=== PATIENT | female | born 1975 | race Caucasian/White ===

== ENCOUNTER 2016-09-16 23:45 | Inpatient (IN) | payer OTHER ==
[~2016-09-16] VITALS: Ht 170.2 cm; Wt 155.0 kg
[~2016-09-16 23:45] MED LIST: ABILIFY10 MG PO; ABILIFY15 MG PO; ABILIFY30 MG PO; ACEROLA C500 M2 PO; ACETAMINOPHEN500 MG PO; ACID CONTROL20 MG PO; ADVAIR 500-501 EACH IH; ADVAIR 500/501 DISK IH; ADVAIR HFA120 INHAL1 IH; ALBUTEROL SULF8.5 GM IH; ALBUTEROL2.5 MG/0.5 IH; ALDACTONE25 MG PO; AMBIEN10 MG PO; AMBIEN5 MG PO; AMITRIPTYLINE H25 MG PO; ANAPROX DS550 M1 PO; ANEXSIA 5-3251 EACH PO; ARIPIPRAZOLE10 MG PO; ATARAX,VISTARIL25 MG PO; ATARAX,VISTARIL50 MG PO; AUGMENTIN875 MG PO; AZITHROMYCIN250 MG1 PO; Advair 500/50 Diskus IH; Advair HFA 230/21 IH; Aldactone PO; Atarax,Vistaril PO; BENADRYL ALLERG25 MG PO; BENADRYL ITCH28.3 GM TP; BUMEX1 MG PO; BUPROPION XL150 MG PO; BUSPAR10 MG PO; BUTALB-ACETAMI1 EAC2 PO; BUTALB-APAP-CA1 EACH; BUTALB-APAP-CA1 EACH PO; Benadryl PO; Buspar PO; CARAFATE100 MG/ML PO; CELEBREX200 MG PO; CELEXA10 MG PO; CELEXA20 MG PO; CHERATUSSIN DA473 ML PO; CIPRO500 M1 PO; CIPRO500 MG PO; CITALOPRAM HBR10 MG PO; CITALOPRAM HBR20 MG PO; CLARITIN10 M3 PO; CLARITIN10 MG; CLEOCIN150 MG PO; CLEOCIN300 MG PO; CLINDAMYCIN HC150 MG PO; CLINDAMYCIN HC300 MG PO; CLONAZEPAM0.5 MG PO; CLONAZEPAM1 MG PO; CLOTRIMAZOLE15 GM TP; COLACE100 MG PO; CONSTULOSE10 GM/15 M PO; CYMBALTA60 MG PO; Claritin,Alavart PO; Colace PO; Cymbalta PO; DAILY VALUE1 EACH PO; DELTASONE20 M1 PO; DEPAKOTE ER500 MG PO; DEPO-PROVER150 MG/ML IM; DESYREL 150 MG150 MG PO; DESYREL100 MG PO; DESYREL300 MG PO; DEXILANT60 MG PO; DICYCLOMINE HCL10 MG PO; DILAUDID2 MG PO; DILAUDID4 MG PO; DILTIAZEM ER120 M2 PO; DITROPAN XL15 MG PO; DITROPAN5 MG PO; DOXYCYCLINE HY100 M3 PO; DOXYCYCLINE HY100 MG PO; DULOXETINE HCL30 MG PO; DULOXETINE HCL60 MG PO; DUONEB 2.5-0.5 M3 ML IH; DURAGESIC50 MCG TD; Desyrel PO; DuoNeb IH; Duragesic TD; ELAVIL25 MG PO; ELIMITE 5% CREA60 GM TP; FENTANYL1 EAC5 TD; FIBER500 MG PO; FIORICET 50-321 EAC1 PO; FIORICET,ESG1 TABLET PO; FIORINAL PO; FIORINAL WITH1 EACH; FLAGYL500 MG PO; FLEXERIL10 MG PO; FLEXERIL5 MG PO; FLONASE16 G1 BOTH NARES; FLONASE16 G1 NS; FLONASE16 GM NS; FLORASTOR250 MG PO; FOLIC ACID1 MG PO; FUROSEMIDE40 MG PO; Flonase BOTH NARES; Folvite PO; GABAPENTIN800 MG PO; GLUCOPHAGE1000 MG PO; GLUCOPHAGE500 MG PO; Glucophage PO; HYDROCODON-ACE1 EA11 PO; HYDROMORPHONE E16 MG PO; HYDROXYZINE HCL25 MG PO; HYDROXYZINE HCL50 MG PO; HYDROXYZINE PA100 MG PO; IBUPROFEN800 MG PO; IMITREX; IMITREX25 MG PO; IMITREX6 MG/0.52 SC; IMITREX6 MG/0.53 SC; IMODIUM A-D2 MG PO; INDOCIN25 MG PO; IRON325 M1 PO; JANUVIA100 MG PO; K-DUR10 ME1 PO; K-DUR20 MEQ PO; K-Dur PO; KEFLEX500 MG PO; KETOCONAZOLE60 GM TP; KLONOPIN0.5 M1 PO; KLONOPIN1 MG PO; KLONOPIN2 MG PO; KLOR-CON M1010 MEQ PO; KLOR-CON M2020 MEQ PO; Keflex; Keflex PO; LANSOPRAZOLE30 MG PO; LASIX20 MG PO; LASIX40 MG PO; LASIX80 MG PO; LEVAQUIN500 MG PO; LIDODERM 5% P1 PATCH PO; LIDODERM 5% P1 PATCH TD; LINEZOLID600 MG PO; LIPITOR10 MG; LIPITOR20 MG PO; LITHIUM CARBON300 MG PO; LOTRIMIN AF24 GM TP; LYRICA200 MG PO; Lasix PO; Lipitor PO; MAALOX ADVANCE355 ML PO; MACROBID100 MG PO; MEDROL DOSEPAK4 MG PO; MELOXICAM15 MG PO; METFORMIN HCL1000 M1 PO; METFORMIN HCL1000 M3 PO; METFORMIN HCL1000 MG PO; METFORMIN HCL500 MG PO; METOCLOPRAMIDE10 MG PO; METOLAZONE2.5 MG PO; MIRALAX17 GM PO; MOBIC15 MG PO; MOBIC7.5 MG PO; MONTELUKAST SOD10 MG PO; MONUROL SACHET 33 GM PO; MOTRIN800 MG PO; MULTIVITAMIN1 EAC2 PO; Medrol Dosepak PO; Motrin PO; NAPROSYN500 MG PO; NAPROXEN500 MG PO; NASONEX17 GM BOTH NARES; NASONEX17 GM IH; NEURONTIN300 MG PO; NEURONTIN800 MG PO; NORCO 5/3251 TABLET PO; Neurontin PO; ONDANSETRON HCL8 MG PO; ONDANSETRON ODT4 MG PO; ONDANSETRON ODT8 MG PO; OXAYDO5 MG PO; OXCARBAZEPINE150 MG PO; OXCARBAZEPINE600 MG PO; OXYBUTYNIN CHLO10 MG PO; OXYBUTYNIN CHLO15 MG PO; OXYBUTYNIN CHLOR5 MG PO; OXYCODONE-APAP1 EACH PO; PEN-VEE K,VEET500 MG PO; PERCOCET 10/1 TABLET PO; PERCOCET 5/31 TABLET; PERCOCET 5/31 TABLET PO; PERCOCET 7.51 TABLET PO; PHENERGAN12.5 M1 PO; PHENERGAN25 MG PO; PHENERGAN25 MG PR; PREDNISONE10 M1 PO; PREDNISONE10 MG PO; PREDNISONE20 MG PO; PREDNISONE50 MG PO; PREVACID30 MG PO; PROAIR HFA8.5 GM IH; PROMETHAZINE HC25 M1 PO; PROMETHAZINE HC25 MG PR; PROVENTIL,2.5 MG/0.5 IH; PROVENTIL,2.5 MG/3 M IH; PROVENTIL,200 INHALA IH; PROVENTIL17 GM IH; PROZAC10 MG PO; PROZAC40 MG PO; PROzac PO; Percocet 5/325,Endoc PO; Phenergan PO; Potassium Chloride 1 PO; RANITIDINE HCL300 MG PO; REGLAN10 M1 PO; REGLAN10 MG PO; REQUIP1 MG PO; RISPERDAL1 MG PO; ROBITUSSIN100 MG/5 M PO; ROPINIROLE HCL1 MG PO; ROPINIROLE HCL2 MG PO; Reglan PO; SENNA LAXATIVE8.6 MG PO; SENNA8.6 M1 PO; SENNA8.6 MG PO; SENOKOT,SENN1 TABLET PO; SINGULAIR10 MG PO; SPIRIVA1 INHALATI IH; SPIRONOLACTONE25 MG PO; SPIRONOLACTONE50 MG PO; SPRINTEC1 EACH PO; STADOL NASAL2.5 ML; STADOL NASAL2.5 ML NS; STOOL SOFTENER100 M1 PO; STOOL SOFTENER100 MG PO; SUMATRIPTA6 MG/0.5 M SC; Singulair PO; THEO-24200 MG; THEO-24200 MG PO; THEO-DUR,THEOC100 MG PO; THEO-DUR,THEOC200 MG PO; THEOPHYLLINE A200 M1 PO; THEOPHYLLINE400 MG PO; THERAGRAN1 TABLET; TIZANIDINE HCL2 MG PO; TIZANIDINE HCL4 MG PO; TOPAMAX100 MG; TOPAMAX100 MG PO; TOPAMAX200 MG PO; TOPAMAX25 MG PO; TOPAMAX50 MG PO; TOPIRAGEN200 MG PO; TOPIRAMATE100 MG PO; TOPIRAMATE200 MG PO; TOPIRAMATE25 MG PO; TRAMADOL HCL50 MG PO; TRAZODONE HCL100 MG PO; TRAZODONE HCL150 MG PO; TRAZODONE HCL300 MG PO; TREXIMET 85-1 TABLET PO; TRILEPTAL150 MG PO; TRILEPTAL300 MG PO; TRILEPTAL600 MG PO; TUMS500 MG PO; TYLENOL EXTRA500 MG PO; TYLENOL REGULA325 MG PO; TYLENOL WITH C1 EACH PO; Theo-Dur,Theocron PO; Topamax PO; ULTRACET1 TABLET PO; ULTRAM ER 100100 MG PO; ULTRAM50 MG PO; VALIUM5 MG PO; VIBRAMYCIN100 MG PO; VICODIN 5-3001 EACH PO; VICODIN,LORT1 TABLET PO; VISTARIL50 MG PO; VITAMIN D1000 INTUN PO; VITAMIN D1000 UNIT PO; VITAMIN D31000 UNI2 PO; VITAMIN D31000 UNIT PO; VOLTAREN 1% GE100 GM TP; WELLBUTRIN XL300 MG PO; ZANAFLEX2 MG PO; ZANAFLEX4 M1 PO; ZANAFLEX4 MG PO; ZANTAC300 MG PO; ZAROXOLYN2.5 MG PO; ZITHROMAX Z-PA250 MG PO; ZOFRAN ODT4 MG PO; ZOFRAN ODT8 MG PO; ZOFRAN4 MG PO; ZOFRAN8 MG PO; ZOLPIDEM TARTRA10 MG PO; ZOLPIDEM TARTRAT5 MG PO; ZYPREXA5 MG PO; ZYRTEC10 M2 PO; ZYRTEC10 M3 PO; ZYVOX600 MG PO; Zaroxolyn,Diulo PO; [UNRECOGNIZED DRUG - OTHER]; [UNRECOGNIZED DRUG - OTHER] MC; [UNRECOGNIZED DRUG - REMARK]; risperDAL PO
[2016-09-17 04:40] LABS: CHLORIDE 107 mEq/L (99-109); POTASSIUM 3.8 mEq/L (3.7-5.4); SODIUM 140 mEq/L (136-147)
[2016-09-17 04:42] LABS: GLUCOSE 110 mg/dL (70-99)
[2016-09-17 04:44] LABS: ANION GAP 11 MEQ/L (2-14)
[2016-09-17 04:46] LABS: GFR ESTIMATE (CALCULATED) > 59 mL/min/
[2016-09-17 04:47] LABS: UREA NITROGEN (BUN) 9 mg/dL (9-23)
[2016-09-17 05:01] LABS: ADD MIUA? YES; BILIRUBIN NEGATIVE; BLOOD NEGATIVE; COLOR YELLOW ((YELLOW)); GLUCOSE (STRIP) NEGATIVE; KETONES NEGATIVE; LEUKOCYTES LARGE; NITRITE NEGATIVE; PH, URINE 7.5 (5-8); PROTEIN (STRIP) TRACE; SPECIFIC GRAVITY 1.018 (1.000-1.030); UROBILINOGEN 0.2 MG/DL (0.2-1.0)
[2016-09-17 05:02] LABS: HEMATOCRIT 35.1 % (36.0-46.0); MCH 20.7 PG (29.0-34.0); MCHC 30.8 G/DL (30.0-36.0); MCV 67.2 FL (83-99); MEAN PLAT.VOLUME 9.1 uM^3 (9.5-12.4); PLATELET COUNT 441 K/uL (156-360); RBC DIS.WIDTH-CV 20.5 % (11.8-14.6); RBC DIS.WIDTH-SD 49.3 % (39-53); RED BLOOD COUNT 5.22 M/uL (3.80-5.20); WHITE BLOOD COUNT 11.6 K/uL (4.1-10.2)
[2016-09-17 05:10] LABS: EOSINOPHIL (%) 4.6 % (0-5); EOSINOPHIL COUNT 0.5 K/uL (0-0.3); IMMATURE GRANULOCYTE (%) 0.3 % (0.0-0.7); IMMATURE GRANULOCYTE COUNT 0.3 K/uL; LYMPHOCYTE COUNT 3.7 K/uL (1.0-2.8); MONOCYTE (%) 6.1 % (3-12); MONOCYTE COUNT 0.7 K/uL (0-0.8); NEUTROPHIL (%) 57.3 % (45-76); NEUTROPHIL COUNT 6.7 K/uL (1.8-6.4)
[2016-09-17 05:37] LABS: RED BLOOD CELLS NONE SEEN /HPF (0-5)
[2016-09-17 05:40] LABS: EPITHELIAL CELLS 1+
[2016-09-17 05:41] LABS: BACTERIA NONE SEEN; CASTS NONE SEEN /LPF; CRYSTALS NONE SEEN; MUCUS 1+; UCUL ADDED? NO
[2016-09-17] MEDS ORDERED: ELAVIL25 MG PO (09:25)
[2016-09-17] MEDS ORDERED: NEURONTIN400 MG PO (09:30)
[2016-09-17] MEDS ORDERED: LIDOCAINE HCL35 GM TP (09:31)
[2016-09-17] MEDS ORDERED: SANTYL30 GM TP (09:31)
[2016-09-17] MEDS ORDERED: ULTRAM50 MG PO (09:41)
[2016-09-17] MEDS ORDERED: ZOCOR40 MG PO (09:42)
[2016-09-17] MEDS ORDERED: KLONOPIN1 MG PO (09:43)
[2016-09-17 13:28] LABS: Estimated Average Glucose 171 mg/dL (70-123); HEMOGLOBIN A1c (GLYCOHEMOGLOB) 7.6 % HGB (Below 5.7)
[2016-09-17 16:18] VITALS: BP 143/83
[2016-09-17 19:46] VITALS: BP 178/87
[2016-09-17 23:28] VITALS: BP 132/73
[2016-09-18 03:17] VITALS: BP 150/73
[2016-09-18 07:44] LABS: HEMATOCRIT 32.5 % (36.0-46.0); MCH 20.9 PG (29.0-34.0); MCHC 30.5 G/DL (30.0-36.0); MCV 68.6 FL (83-99); MEAN PLAT.VOLUME 9.4 uM^3 (9.5-12.4); PLATELET COUNT 356 K/uL (156-360); RBC DIS.WIDTH-CV 19.8 % (11.8-14.6); RBC DIS.WIDTH-SD 48.7 % (39-53); RED BLOOD COUNT 4.74 M/uL (3.80-5.20)
[2016-09-18 07:58] LABS: ANION GAP 12 MEQ/L (2-14); CHLORIDE 107 MEQ/L (99-109); GFR ESTIMATE (CALCULATED) > 59 mL/min/; GLUCOSE 115 mg/dL (70-99); SAMPLE HEMOLYSIS CHECK 0; SAMPLE ICTERIC CHECK 0; SAMPLE LIPEMIA CHECK 0; SODIUM 141 MEQ/L (136-147); UREA NITROGEN (BUN) 9 mg/dL (9-23)
[2016-09-18 08:00] VITALS: BP 152/103
[2016-09-18 12:29] VITALS: BP 141/85
[2016-09-18 16:30] VITALS: BP 148/98
[2016-09-18 19:22] VITALS: BP 116/53
[2016-09-18 23:12] VITALS: BP 118/56
[2016-09-19 03:29] VITALS: BP 130/70
[2016-09-19 06:23] LABS: HEMATOCRIT 31.9 % (36.0-46.0); MCH 20.9 PG (29.0-34.0); MCHC 30.1 G/DL (30.0-36.0); MCV 69.3 FL (83-99); MEAN PLAT.VOLUME 9.1 uM^3 (9.5-12.4); PLATELET COUNT 391 K/uL (156-360); RBC DIS.WIDTH-CV 20.2 % (11.8-14.6); RBC DIS.WIDTH-SD 49.9 % (39-53); WHITE BLOOD COUNT 9.5 K/uL (4.1-10.2)
[2016-09-19 06:39] LABS: EOSINOPHIL (%) 3.6 % (0-5); EOSINOPHIL COUNT 0.3 K/uL (0-0.3); IMMATURE GRANULOCYTE (%) 0.2 % (0.0-0.7); LYMPHOCYTE COUNT 3.2 K/uL (1.0-2.8); MONOCYTE COUNT 0.4 K/uL (0-0.8); NEUTROPHIL (%) 58.6 % (45-76); NEUTROPHIL COUNT 5.6 K/uL (1.8-6.4)
[2016-09-19 06:49] LABS: ALKALINE PHOSPHATASE 78 IU/L (3-129); ANION GAP 14 MEQ/L (2-14); CHLORIDE 106 MEQ/L (99-109); GFR ESTIMATE (CALCULATED) > 59 mL/min/; GLUCOSE 130 mg/dL (70-99); POTASSIUM 3.9 MEQ/L (3.7-5.4); SAMPLE HEMOLYSIS CHECK 0; SAMPLE ICTERIC CHECK 0; SAMPLE LIPEMIA CHECK 0; SODIUM 143 MEQ/L (136-147); TOTAL BILIRUBIN 0.2 MG/DL (0.0-1.0); UREA NITROGEN (BUN) 8 mg/dL (9-23)
[2016-09-19 07:22] LABS: HEMATOLOGY COMMENT 1 SMEAR COMPATIBLE; USER ID MCB
[2016-09-19 07:48] VITALS: BP 158/91
[2016-09-19 16:13] VITALS: BP 156/82
[2016-09-19 23:25] VITALS: BP 120/58
[2016-09-20 07:32] VITALS: BP 151/81
[2016-09-20 07:45] LABS: POINT-OF-CARE USER ID 606021404
[2016-09-20 09:06] LABS: HEMATOCRIT 30.1 % (36.0-46.0); MCH 20.9 PG (29.0-34.0); MCHC 30.2 G/DL (30.0-36.0); MEAN PLAT.VOLUME 8.8 uM^3 (9.5-12.4); PLATELET COUNT 382 K/uL (156-360); RBC DIS.WIDTH-CV 20.2 % (11.8-14.6); RBC DIS.WIDTH-SD 50.1 % (39-53); RED BLOOD COUNT 4.36 M/uL (3.80-5.20); WHITE BLOOD COUNT 8.7 K/uL (4.1-10.2)
[2016-09-20 09:32] LABS: EOSINOPHIL (%) 4.2 % (0-5); EOSINOPHIL COUNT 0.4 K/uL (0-0.3); IMMATURE GRANULOCYTE (%) 0.3 % (0.0-0.7); LYMPHOCYTE COUNT 3.1 K/uL (1.0-2.8); MONOCYTE COUNT 0.4 K/uL (0-0.8); NEUTROPHIL (%) 54.8 % (45-76); NEUTROPHIL COUNT 4.8 K/uL (1.8-6.4)
[2016-09-20 09:44] LABS: ANION GAP 10 MEQ/L (2-14); CHLORIDE 108 MEQ/L (99-109); GFR ESTIMATE (CALCULATED) > 59 mL/min/; GLUCOSE 122 mg/dL (70-99); POTASSIUM 4.2 MEQ/L (3.7-5.4); SAMPLE HEMOLYSIS CHECK 0; SAMPLE ICTERIC CHECK 0; SAMPLE LIPEMIA CHECK 0; SODIUM 139 MEQ/L (136-147); UREA NITROGEN (BUN) 8 mg/dL (9-23)
[2016-09-20 10:11] LABS: HEMATOLOGY COMMENT 1 SMEAR COMPATIBLE; USER ID CCL
[2016-09-20 11:30] LABS: POINT-OF-CARE USER ID 606021404
[2016-09-20 15:30] VITALS: BP 113/59
[2016-09-20 17:00] LABS: POINT-OF-CARE USER ID 606021404
[2016-09-20 23:31] VITALS: BP 133/73
[2016-09-21 07:36] VITALS: BP 170/75
[2016-09-21 14:04] LABS: GFR ESTIMATE (CALCULATED) > 59 mL/min/
[2016-09-21 14:05] LABS: VANCOMYCIN, TROUGH 12.8 MCG/ML (10-20)
[2016-09-22] VITALS: BP 136/76
[2016-09-22 08:05] VITALS: BP 126/79
[2016-09-22 17:00] VITALS: BP 143/86
[2016-09-23 00:09] VITALS: BP 135/73
[2016-09-23 07:57] VITALS: BP 170/98
[2016-10-07] MEDS ORDERED: BENADRYL50 MG PO (17:27)
== END 2016-09-23 13:54 | disposition home health service (06) | DRG 603 ==
LOC: EME 23:45 → EDOF 09-17 07:43 → 2EAST 09-17 10:03
PROVIDERS: Emergency Medicine; Internal Medicine; Nurse Practitioner Adult Health; Pediatrics; Physician Assistant
DX: L03.115 Cellulitis of right lower limb (principal); L03.116 Cellulitis of left lower limb; I87.2 Venous insufficiency (chronic) (peripheral); L97.219 Non-pressure chronic ulcer of right calf with unspecified severity; L97.929 Non-pressure chronic ulcer of unspecified part of left lower leg with unspecified severity; B95.62 Methicillin resistant Staphylococcus aureus infection as the cause of diseases classified elsewhere; B96.5 Pseudomonas (aeruginosa) (mallei) (pseudomallei) as the cause of diseases classified elsewhere; E66.01 Morbid (severe) obesity due to excess calories; Z68.43 Body mass index [BMI] 50.0-59.9, adult; I89.0 Lymphedema, not elsewhere classified; G47.33 Obstructive sleep apnea (adult) (pediatric); Z91.19 Patient's noncompliance with other medical treatment and regimen; D50.9 Iron deficiency anemia, unspecified; Z86.14 Personal history of Methicillin resistant Staphylococcus aureus infection; J45.909 Unspecified asthma, uncomplicated; E11.43 Type 2 diabetes mellitus with diabetic autonomic (poly)neuropathy; K31.84 Gastroparesis; G89.29 Other chronic pain; M54.40 Lumbago with sciatica, unspecified side; E78.5 Hyperlipidemia, unspecified; G40.909 Epilepsy, unspecified, not intractable, without status epilepticus; K21.9 Gastro-esophageal reflux disease without esophagitis; F41.8 Other specified anxiety disorders; F31.9 Bipolar disorder, unspecified; G43.909 Migraine, unspecified, not intractable, without status migrainosus
CPT/HCPCS: 71010; 80048; 80053; 80202; 81003; 82565; 82948; 83036; 83605; 85025; 85027; 87040; 87070; 87075; 87077; 87081; 87186; 87205; 93970; 94640; 94640 76; 99202; 99281; 99285; J0696; J1170; J1650; J1815; J2543; J3370; J7030; J7050; Q0169; S0030

== ENCOUNTER 2016-09-30 10:42 | Emergency (ER) | payer OTHER ==
[~2016-09-30] VITALS: Ht 170.2 cm; Wt 160.9 kg
[~2016-09-30 10:42] MED LIST changes: +LIDOCAINE HCL35 GM TP; +NEURONTIN400 MG PO; +SANTYL30 GM TP; +ZOCOR40 MG PO
[2016-09-30 13:13] LABS: HEMATOCRIT 30.9 % (36.0-46.0); MCHC 29.8 G/DL (30.0-36.0); MCV 67.3 FL (83-99); RBC DIS.WIDTH-CV 21.3 % (11.8-14.6); RBC DIS.WIDTH-SD 50.3 % (39-53); RED BLOOD COUNT 4.59 M/uL (3.80-5.20); WHITE BLOOD COUNT 10.7 K/uL (4.1-10.2)
[2016-09-30 13:19] LABS: MEAN PLAT.VOLUME 8.7 uM^3 (9.5-12.4)
[2016-09-30 13:19] LABS: ADD MIUA? YES; BILIRUBIN NEGATIVE; BLOOD NEGATIVE; GLUCOSE (STRIP) NEGATIVE; KETONES NEGATIVE; LEUKOCYTES MODERATE; NITRITE NEGATIVE; PROTEIN (STRIP) NEGATIVE; SPECIFIC GRAVITY 1.007 (1.000-1.030); UROBILINOGEN 0.2 MG/DL (0.2-1.0)
[2016-09-30 13:20] LABS: COLOR PALE STRAW ((YELLOW))
[2016-09-30 13:20] LABS: PLATELET COUNT 509 K/uL (156-360)
[2016-09-30 13:28] LABS: CHLORIDE 110 mEq/L (99-109); POTASSIUM 3.6 mEq/L (3.7-5.4); SODIUM 139 mEq/L (136-147)
[2016-09-30 13:30] LABS: GLUCOSE 137 mg/dL (70-99)
[2016-09-30 13:31] LABS: ANION GAP 10 MEQ/L (2-14)
[2016-09-30 13:34] LABS: GFR ESTIMATE (CALCULATED) > 59 mL/min/
[2016-09-30 13:35] LABS: UREA NITROGEN (BUN) 7 mg/dL (9-23)
[2016-09-30 13:39] LABS: BACTERIA NONE SEEN; CASTS NONE SEEN /LPF; CRYSTALS NONE SEEN; EPITHELIAL CELLS 1+; MUCUS NONE SEEN; PATHOLOGICAL CAST NONE SEEN; RED BLOOD CELLS 0-5 /HPF (0-5); SMALL ROUND CELL NONE SEEN; UCUL ADDED? NO; YEAST-LIKE CELL NONE SEEN
[2016-09-30 13:45] LABS: C-REACTIVE PROTEIN 33.9 MG/L (0-10); SAMPLE HEMOLYSIS CHECK 0; SAMPLE ICTERIC CHECK 0; SAMPLE LIPEMIA CHECK 0
[2016-09-30 13:54] LABS: ERTH.SED.RATE 107 MM/HR (0-20)
[2016-09-30] MEDS ORDERED: MONISTAT 745 GM VG (15:17)
[2016-09-30 15:25] VITALS: BP 149/69
[2016-10-07] MEDS ORDERED: BENADRYL50 MG PO (17:27)
== END 2016-09-30 15:29 | disposition home or self-care (01) ==
LOC: EME 10:42
PROVIDERS: Nurse Practitioner Family
DX: B37.3 Candidiasis of vulva and vagina (principal); J45.909 Unspecified asthma, uncomplicated; J44.9 Chronic obstructive pulmonary disease, unspecified; R56.9 Unspecified convulsions; G89.29 Other chronic pain; G47.30 Sleep apnea, unspecified; Z86.14 Personal history of Methicillin resistant Staphylococcus aureus infection
CPT/HCPCS: 80048; 80202; 81003; 85027; 85651; 86140; 99281; 99284

== ENCOUNTER 2016-10-26 23:50 | Emergency (ER) | payer OTHER ==
[~2016-10-26] VITALS: Ht 167.6 cm; Wt 155.0 kg
[~2016-10-26 23:50] MED LIST changes: +BENADRYL50 MG PO; +MONISTAT 745 GM VG
[2016-10-27 01:25] VITALS: BP 112/56
== END 2016-10-27 01:35 | disposition home or self-care (01) ==
LOC: EME 23:50
DX: L03.115 Cellulitis of right lower limb (principal); L03.116 Cellulitis of left lower limb; J44.9 Chronic obstructive pulmonary disease, unspecified; R56.9 Unspecified convulsions; Z79.84 Long term (current) use of oral hypoglycemic drugs; K21.9 Gastro-esophageal reflux disease without esophagitis
CPT/HCPCS: 99281; 99283; J3010

== ENCOUNTER 2016-10-30 21:11 | Inpatient (IN) | payer OTHER ==
[~2016-10-30] VITALS: Ht 167.6 cm; Wt 160.0 kg
[2016-10-30 21:35] LABS: HEMATOCRIT 31.8 % (36.0-46.0); MCH 19.9 PG (29.0-34.0); MCHC 29.9 G/DL (30.0-36.0); MCV 66.5 FL (83-99); MEAN PLAT.VOLUME 8.7 uM^3 (9.5-12.4); RBC DIS.WIDTH-CV 20.5 % (11.8-14.6); RBC DIS.WIDTH-SD 49.5 % (39-53); RED BLOOD COUNT 4.78 M/uL (3.80-5.20); WHITE BLOOD COUNT 12.1 K/uL (4.1-10.2)
[2016-10-30 21:42] LABS: EOSINOPHIL (%) 2.5 % (0-5); EOSINOPHIL COUNT 0.3 K/uL (0-0.3); IMMATURE GRANULOCYTE (%) 0.1 % (0.0-0.7); IMMATURE GRANULOCYTE COUNT 0.1 K/uL; MONOCYTE COUNT 0.9 K/uL (0-0.8); NEUTROPHIL (%) 57.3 % (45-76); NEUTROPHIL COUNT 6.9 K/uL (1.8-6.4)
[2016-10-30 21:43] LABS: PLATELET COUNT 494 K/uL (156-360)
[2016-10-30 21:45] LABS: CHLORIDE 110 mEq/L (99-109); POTASSIUM 3.8 mEq/L (3.7-5.4); SODIUM 142 mEq/L (136-147)
[2016-10-30 21:47] LABS: GLUCOSE 171 mg/dL (70-99)
[2016-10-30 21:48] LABS: ANION GAP 11 MEQ/L (2-14)
[2016-10-30 21:51] LABS: GFR ESTIMATE (CALCULATED) > 59 mL/min/
[2016-10-30 21:52] LABS: UREA NITROGEN (BUN) 8 mg/dL (9-23)
[2016-10-31 01:03] LABS: INTER. NORMALIZED RATIO 1.1; PROTHROMBIN TIME 11.2 (9.2-11.2); PTT 30.8 (25-32)
[2016-10-31] MEDS ORDERED: KLONOPIN0.5 M1 PO (01:12)
[2016-10-31] MEDS ORDERED: COMPOUNDED CREAM TP (01:24)
[2016-10-31 05:34] LABS: ADD MIUA? YES; BILIRUBIN NEGATIVE; BLOOD NEGATIVE; COLOR YELLOW ((YELLOW)); GLUCOSE (STRIP) NEGATIVE; KETONES NEGATIVE; LEUKOCYTES MODERATE; NITRITE NEGATIVE; PROTEIN (STRIP) 30; UROBILINOGEN 0.2 MG/DL (0.2-1.0)
[2016-10-31 05:35] LABS: BACTERIA NONE SEEN /HPF; EPITHELIAL CELLS 3+ /HPF; MUCUS TRACE /LPF; UCUL ADDED? NO; WHITE BLOOD CELLS 20-30 /HPF (0-5)
[2016-10-31 07:12] LABS: MCHC 30.3 G/DL (30.0-36.0); MEAN PLAT.VOLUME 8.6 uM^3 (9.5-12.4); PLATELET COUNT 453 K/uL (156-360); RBC DIS.WIDTH-CV 20.5 % (11.8-14.6); WHITE BLOOD COUNT 11.3 K/uL (4.1-10.2)
[2016-10-31 07:45] LABS: POINT-OF-CARE METER ID UU13113702
[2016-10-31] MEDS ORDERED: CLEOCIN300 MG PO (07:56)
[2016-10-31 10:01] VITALS: BP 147/84
== END 2016-10-31 10:03 | disposition home or self-care (01) | DRG 556 ==
LOC: EME 21:11 → EDOF 10-31 01:21
PROVIDERS: Emergency Medicine; Internal Medicine
DX: M79.605 Pain in left leg (principal); E86.0 Dehydration; E11.9 Type 2 diabetes mellitus without complications; F32.9 Major depressive disorder, single episode, unspecified; G47.33 Obstructive sleep apnea (adult) (pediatric); Z91.19 Patient's noncompliance with other medical treatment and regimen; M79.604 Pain in right leg; J45.909 Unspecified asthma, uncomplicated; G43.909 Migraine, unspecified, not intractable, without status migrainosus; E11.43 Type 2 diabetes mellitus with diabetic autonomic (poly)neuropathy; K21.9 Gastro-esophageal reflux disease without esophagitis; F41.9 Anxiety disorder, unspecified; R10.9 Unspecified abdominal pain; L03.115 Cellulitis of right lower limb; L03.116 Cellulitis of left lower limb
CPT/HCPCS: 80048; 81003; 82948; 83605; 85025; 85027; 85610; 85730; 87040; 94640; 94760; 99202; 99281; 99285; J1170; J1815; J2405; J7030; Q0177

== ENCOUNTER 2016-11-01 23:41 | Emergency (ER) | payer OTHER ==
[~2016-11-01] VITALS: Ht 167.6 cm; Wt 154.5 kg
[~2016-11-01 23:41] MED LIST changes: +COMPOUNDED CREAM TP
[2016-11-02 00:59] LABS: HEMATOCRIT 32.1 % (36.0-46.0); MCH 19.7 PG (29.0-34.0); MCHC 29.6 G/DL (30.0-36.0); MCV 66.5 FL (83-99); MEAN PLAT.VOLUME 8.8 uM^3 (9.5-12.4); PLATELET COUNT 508 K/uL (156-360); RBC DIS.WIDTH-CV 20.6 % (11.8-14.6); RBC DIS.WIDTH-SD 49.1 % (39-53); RED BLOOD COUNT 4.83 M/uL (3.80-5.20); WHITE BLOOD COUNT 12.8 K/uL (4.1-10.2)
[2016-11-02 01:13] LABS: CHLORIDE 110 mEq/L (99-109)
[2016-11-02 01:14] LABS: POTASSIUM 3.4 mEq/L (3.7-5.4); SODIUM 140 mEq/L (136-147)
[2016-11-02 01:16] LABS: GLUCOSE 162 mg/dL (70-99)
[2016-11-02 01:17] LABS: ANION GAP 10 MEQ/L (2-14)
[2016-11-02 01:18] LABS: TOTAL BILIRUBIN 0.2 mg/dL (0.0-1.0)
[2016-11-02 01:19] LABS: ALKALINE PHOSPHATASE 74 IU/L (3-129); GFR ESTIMATE (CALCULATED) 53 mL/min/
[2016-11-02 01:21] LABS: UREA NITROGEN (BUN) 7 mg/dL (9-23)
[2016-11-02 01:23] LABS: LIPASE 57 U/L (1.0-51.0)
[2016-11-02 01:41] LABS: ADD MIUA? YES; BILIRUBIN NEGATIVE; BLOOD NEGATIVE; COLOR YELLOW ((YELLOW)); GLUCOSE (STRIP) NEGATIVE; KETONES NEGATIVE; LEUKOCYTES SMALL; NITRITE NEGATIVE; PROTEIN (STRIP) NEGATIVE; SPECIFIC GRAVITY 1.015 (1.000-1.030); UROBILINOGEN 0.2 MG/DL (0.2-1.0)
[2016-11-02 01:52] LABS: BACTERIA NONE SEEN /HPF; BUDDING YEAST 1+; EPITHELIAL CELLS 1+ /HPF; MUCUS NONE SEEN /LPF; RED BLOOD CELLS 0-5 /HPF (0-5); UCUL ADDED? NO; WHITE BLOOD CELLS 15-20 /HPF (0-5)
[2016-11-02 02:52] VITALS: BP 125/79
== END 2016-11-02 02:53 | disposition home or self-care (01) ==
LOC: EME 23:41
PROVIDERS: Emergency Medicine
DX: L03.115 Cellulitis of right lower limb (principal); L03.116 Cellulitis of left lower limb; G89.29 Other chronic pain; M79.604 Pain in right leg; M79.605 Pain in left leg; M62.830 Muscle spasm of back; M25.551 Pain in right hip; R00.0 Tachycardia, unspecified; J44.9 Chronic obstructive pulmonary disease, unspecified; J45.909 Unspecified asthma, uncomplicated; Z86.14 Personal history of Methicillin resistant Staphylococcus aureus infection; E11.9 Type 2 diabetes mellitus without complications; Z79.891 Long term (current) use of opiate analgesic
CPT/HCPCS: 71010; 80053; 81003; 83690; 85027; 99281; 99284

== ENCOUNTER 2016-11-06 03:26 | Inpatient (IN) | payer OTHER ==
[~2016-11-06] VITALS: Ht 170.2 cm; Wt 152.1 kg
[2016-11-06 04:27] LABS: HEMATOCRIT 27.3 % (36.0-46.0); MCH 19.7 PG (29.0-34.0); MCHC 29.7 G/DL (30.0-36.0); MCV 66.3 FL (83-99); MEAN PLAT.VOLUME 8.8 uM^3 (9.5-12.4); PLATELET COUNT 461 K/uL (156-360); RBC DIS.WIDTH-CV 19.9 % (11.8-14.6); RBC DIS.WIDTH-SD 47.3 % (39-53); RED BLOOD COUNT 4.12 M/uL (3.80-5.20); WHITE BLOOD COUNT 11.9 K/uL (4.1-10.2)
[2016-11-06 04:35] LABS: CHLORIDE 115 mEq/L (99-109); SODIUM 140 mEq/L (136-147)
[2016-11-06 04:37] LABS: GLUCOSE 208 mg/dL (70-99)
[2016-11-06 04:39] LABS: ANION GAP 10 MEQ/L (2-14)
[2016-11-06 04:41] LABS: ALKALINE PHOSPHATASE 65 IU/L (3-129); GFR ESTIMATE (CALCULATED) > 59 mL/min/
[2016-11-06 04:42] LABS: UREA NITROGEN (BUN) 7 mg/dL (9-23)
[2016-11-06 04:44] LABS: LIPASE 60 U/L (1.0-51.0)
[2016-11-06 04:48] LABS: INTER. NORMALIZED RATIO 3.9; PROTHROMBIN TIME 41.2 (9.2-11.2); TROP-I INTERPRETATION NEGATIVE; TROPONIN-I < 0.01 ng/mL (0.0-0.30)
[2016-11-06 04:50] LABS: QUANTITATIVE HCG < 4.0 MIU/ML
[2016-11-06 04:55] LABS: POTASSIUM 2.7 mEq/L (3.7-5.4); TOTAL BILIRUBIN 0.1 mg/dL (0.0-1.0)
[2016-11-06 05:45] LABS: CHLORIDE 111 mEq/L (99-109); SODIUM 140 mEq/L (136-147)
[2016-11-06 05:46] LABS: GLUCOSE 179 mg/dL (70-99)
[2016-11-06 05:48] LABS: ANION GAP 12 MEQ/L (2-14)
[2016-11-06 05:49] LABS: PTT 28.2 (25-32)
[2016-11-06 05:50] LABS: INTER. NORMALIZED RATIO 1.1; PROTHROMBIN TIME 11.6 (9.2-11.2)
[2016-11-06 05:50] LABS: GFR ESTIMATE (CALCULATED) > 59 mL/min/
[2016-11-06 05:51] LABS: HEMATOCRIT 30.7 % (36.0-46.0); MCHC 30.3 G/DL (30.0-36.0); PLATELET COUNT 542 K/uL (156-360); RBC DIS.WIDTH-SD 46.7 % (39-53); RED BLOOD COUNT 4.65 M/uL (3.80-5.20); WHITE BLOOD COUNT 13.6 K/uL (4.1-10.2)
[2016-11-06 05:51] LABS: UREA NITROGEN (BUN) 8 mg/dL (9-23)
[2016-11-06 05:53] LABS: POTASSIUM 3.6 mEq/L (3.7-5.4)
[2016-11-06 05:55] LABS: PTT > 150.0 (25-32)
[2016-11-06] MEDS ORDERED: WELLBUTRIN XL150 MG PO (07:48)
[2016-11-06] MEDS ORDERED: ELAVIL100 MG PO (07:54)
[2016-11-06] MEDS ORDERED: CLEOCIN300 MG PO (07:57)
[2016-11-06] MEDS ORDERED: NIGHTTIME SLEEP50 M1 PO (07:57)
[2016-11-06 11:28] LABS: TROP-I INTERPRETATION NEGATIVE; TROPONIN-I < 0.01 ng/mL (0.0-0.30)
[2016-11-06 11:41] LABS: IRON 14 MCG/DL (35-150)
[2016-11-06 11:54] LABS: POINT-OF-CARE METER ID UU13113702
[2016-11-06 11:58] LABS: FERRITIN 7 NG/ML (10-291)
[2016-11-06 13:27] VITALS: BP 143/74
[2016-11-06] MEDS ORDERED: FERROUS SULFAT325 MG PO (14:35)
== END 2016-11-06 14:34 | disposition home health service (06) | DRG 313 ==
LOC: EME → EDBD 03:26 → EME 03:26 → EDOF 06:09
PROVIDERS: Emergency Medicine; Internal Medicine; Physician Assistant
DX: R07.89 Other chest pain (principal); E87.2 Acidosis; Z68.43 Body mass index [BMI] 50.0-59.9, adult; E66.01 Morbid (severe) obesity due to excess calories; I50.9 Heart failure, unspecified; N39.3 Stress incontinence (female) (male); G47.33 Obstructive sleep apnea (adult) (pediatric); E78.5 Hyperlipidemia, unspecified; K21.9 Gastro-esophageal reflux disease without esophagitis; G43.909 Migraine, unspecified, not intractable, without status migrainosus; E11.43 Type 2 diabetes mellitus with diabetic autonomic (poly)neuropathy; G89.29 Other chronic pain; Z91.19 Patient's noncompliance with other medical treatment and regimen; F31.9 Bipolar disorder, unspecified; G40.909 Epilepsy, unspecified, not intractable, without status epilepticus; I83.028 Varicose veins of left lower extremity with ulcer other part of lower leg; I83.018 Varicose veins of right lower extremity with ulcer other part of lower leg; D50.9 Iron deficiency anemia, unspecified
CPT/HCPCS: 71010; 71275; 73552; 80048 91; 80053; 82607; 82728; 82746; 82948; 83540; 83605; 83690; 84466; 84484; 84702; 85027; 85610; 85730; 86850; 86900; 86901; 87040; 87070; 87075; 87205; 93005; 94760; 99202; 99281; 99285; J1170; J1200; J1650; J2020; J2405; J2930; J7050

== ENCOUNTER 2016-11-12 01:11 | Emergency (ER) | payer OTHER ==
[~2016-11-12] VITALS: Ht 170.2 cm; Wt 154.7 kg
[~2016-11-12 01:11] MED LIST changes: +ELAVIL100 MG PO; +FERROUS SULFAT325 MG PO; +NIGHTTIME SLEEP50 M1 PO; +WELLBUTRIN XL150 MG PO
[2016-11-12 02:05] LABS: HEMATOCRIT 30.8 % (36.0-46.0); MCH 19.9 PG (29.0-34.0); MCHC 29.9 G/DL (30.0-36.0); MCV 66.5 FL (83-99); MEAN PLAT.VOLUME 8.5 uM^3 (9.5-12.4); PLATELET COUNT 460 K/uL (156-360); RBC DIS.WIDTH-CV 20.1 % (11.8-14.6); RBC DIS.WIDTH-SD 47.7 % (39-53); RED BLOOD COUNT 4.63 M/uL (3.80-5.20); WHITE BLOOD COUNT 11.5 K/uL (4.1-10.2)
[2016-11-12 02:07] LABS: EOSINOPHIL (%) 2.3 % (0-5); EOSINOPHIL COUNT 0.3 K/uL (0-0.3); IMMATURE GRANULOCYTE (%) 0.3 % (0.0-0.7); IMMATURE GRANULOCYTE COUNT 0.4 K/uL; LYMPHOCYTE COUNT 2.5 K/uL (1.0-2.8); MONOCYTE (%) 5.4 % (3-12); MONOCYTE COUNT 0.6 K/uL (0-0.8); NEUTROPHIL (%) 69.7 % (45-76); NEUTROPHIL COUNT 8.1 K/uL (1.8-6.4)
[2016-11-12 02:17] LABS: CHLORIDE 107 mEq/L (99-109); POTASSIUM 4.1 mEq/L (3.7-5.4); SODIUM 139 mEq/L (136-147)
[2016-11-12 02:18] LABS: GLUCOSE 159 mg/dL (70-99)
[2016-11-12 02:20] LABS: ANION GAP 12 MEQ/L (2-14)
[2016-11-12 02:22] LABS: GFR ESTIMATE (CALCULATED) > 59 mL/min/
[2016-11-12 02:23] LABS: UREA NITROGEN (BUN) 10 mg/dL (9-23)
[2016-11-12 05:24] LABS: QUANTITATIVE HCG < 4.0 MIU/ML
[2016-11-12] MEDS ORDERED: KEFLEX500 MG PO (05:48)
[2016-11-12 07:36] VITALS: BP 118/57
== END 2016-11-12 07:44 | disposition home or self-care (01) ==
LOC: EME 01:11
PROVIDERS: Emergency Medicine
DX: L03.116 Cellulitis of left lower limb (principal); M79.605 Pain in left leg; R00.0 Tachycardia, unspecified; D64.9 Anemia, unspecified
CPT/HCPCS: 80048; 83605; 84702; 85025; 87070; 87075; 87077; 87106; 87186; 87205; 99281; 99284; J2543; J3010; J7030

== ENCOUNTER 2016-11-21 00:29 | Emergency (ER) | payer OTHER ==
[~2016-11-21] VITALS: Ht 167.6 cm; Wt 160.0 kg
[2016-11-21 01:36] LABS: HEMATOCRIT 29.1 % (36.0-46.0); MCH 19.8 PG (29.0-34.0); MCHC 29.6 G/DL (30.0-36.0); MCV 66.9 FL (83-99); MEAN PLAT.VOLUME 8.4 uM^3 (9.5-12.4); PLATELET COUNT 431 K/uL (156-360); RBC DIS.WIDTH-CV 20.3 % (11.8-14.6); RED BLOOD COUNT 4.35 M/uL (3.80-5.20)
[2016-11-21 01:43] LABS: EOSINOPHIL (%) 2.8 % (0-5); EOSINOPHIL COUNT 0.3 K/uL (0-0.3); IMMATURE GRANULOCYTE (%) 0.3 % (0.0-0.7); IMMATURE GRANULOCYTE COUNT 0.3 K/uL; LYMPHOCYTE COUNT 3.1 K/uL (1.0-2.8); MONOCYTE (%) 6.9 % (3-12); MONOCYTE COUNT 0.7 K/uL (0-0.8); NEUTROPHIL (%) 59.1 % (45-76); NEUTROPHIL COUNT 5.9 K/uL (1.8-6.4)
[2016-11-21 01:48] LABS: CHLORIDE 111 mEq/L (99-109); POTASSIUM 3.6 mEq/L (3.7-5.4); SODIUM 142 mEq/L (136-147)
[2016-11-21 01:50] LABS: GLUCOSE 177 mg/dL (70-99)
[2016-11-21 01:52] LABS: ANION GAP 9 MEQ/L (2-14)
[2016-11-21 01:54] LABS: GFR ESTIMATE (CALCULATED) > 59 mL/min/
[2016-11-21 01:55] LABS: UREA NITROGEN (BUN) 7 mg/dL (9-23)
[2016-11-21 02:17] VITALS: BP 154/92
[2016-11-22] MEDS ORDERED: BENTYL20 MG PO (12:26)
[2016-11-22] MEDS ORDERED: ZOFRAN ODT4 MG PO (12:26)
[2016-12-11] MEDS ORDERED: AMOXICILLIN500 M1 PO (09:13)
== END 2016-11-21 02:28 | disposition home or self-care (01) ==
LOC: EME 00:29
PROVIDERS: Emergency Medicine
DX: L03.115 Cellulitis of right lower limb (principal); L03.116 Cellulitis of left lower limb; M79.604 Pain in right leg; M79.605 Pain in left leg; Z88.2 Allergy status to sulfonamides; Z88.6 Allergy status to analgesic agent
CPT/HCPCS: 80048; 85025; 99281; 99284

== ENCOUNTER 2016-11-22 09:57 | Emergency (ER) | payer OTHER ==
[~2016-11-22] VITALS: Ht 167.6 cm; Wt 157.8 kg
[2016-11-22 11:17] LABS: HEMATOCRIT 32.3 % (36.0-46.0); MCH 19.7 PG (29.0-34.0); MCHC 29.7 G/DL (30.0-36.0); MCV 66.2 FL (83-99); MEAN PLAT.VOLUME 8.8 uM^3 (9.5-12.4); PLATELET COUNT 512 K/uL (156-360); RBC DIS.WIDTH-CV 20.9 % (11.8-14.6); RBC DIS.WIDTH-SD 48.5 % (39-53); RED BLOOD COUNT 4.88 M/uL (3.80-5.20); WHITE BLOOD COUNT 11.7 K/uL (4.1-10.2)
[2016-11-22 11:23] LABS: ADD MIUA? YES; BILIRUBIN NEGATIVE; BLOOD NEGATIVE; COLOR YELLOW ((YELLOW)); GLUCOSE (STRIP) NEGATIVE; KETONES NEGATIVE; LEUKOCYTES TRACE; NITRITE NEGATIVE; PROTEIN (STRIP) NEGATIVE; UROBILINOGEN 0.2 MG/DL (0.2-1.0)
[2016-11-22 11:25] LABS: CHLORIDE 109 mEq/L (99-109); POTASSIUM 3.5 mEq/L (3.7-5.4); SODIUM 141 mEq/L (136-147)
[2016-11-22 11:27] LABS: BACTERIA RARE /HPF; EPITHELIAL CELLS 1+ /HPF; MUCUS TRACE /LPF; RED BLOOD CELLS 0-5 /HPF (0-5); UCUL ADDED? NO; WHITE BLOOD CELLS 0-5 /HPF (0-5)
[2016-11-22 11:28] LABS: GLUCOSE 155 mg/dL (70-99)
[2016-11-22 11:29] LABS: ANION GAP 10 MEQ/L (2-14)
[2016-11-22 11:30] LABS: TOTAL BILIRUBIN 0.1 mg/dL (0.0-1.0)
[2016-11-22 11:31] LABS: ALKALINE PHOSPHATASE 104 IU/L (3-129); GFR ESTIMATE (CALCULATED) > 59 mL/min/
[2016-11-22 11:32] LABS: UREA NITROGEN (BUN) 8 mg/dL (9-23)
[2016-11-22 11:35] LABS: LIPASE 16 U/L (1.0-51.0)
[2016-11-22 12:03] LABS: QUANTITATIVE HCG < 4.0 MIU/ML
[2016-11-22] MEDS ORDERED: BENTYL20 MG PO (12:26)
[2016-11-22] MEDS ORDERED: ZOFRAN ODT4 MG PO (12:26)
[2016-11-22 13:19] VITALS: BP 159/81
[2016-12-11] MEDS ORDERED: AMOXICILLIN500 M1 PO (09:13)
== END 2016-11-22 13:20 | disposition home or self-care (01) ==
LOC: EME 09:57
PROVIDERS: Nurse Practitioner Family
DX: R10.9 Unspecified abdominal pain (principal); R06.02 Shortness of breath; D64.9 Anemia, unspecified; M54.5 Low back pain; R35.0 Frequency of micturition; R30.0 Dysuria; R11.0 Nausea; R60.0 Localized edema; J44.9 Chronic obstructive pulmonary disease, unspecified; J45.909 Unspecified asthma, uncomplicated; E11.9 Type 2 diabetes mellitus without complications; I10 Essential (primary) hypertension; E66.01 Morbid (severe) obesity due to excess calories; G89.29 Other chronic pain; Z79.891 Long term (current) use of opiate analgesic; Z68.43 Body mass index [BMI] 50.0-59.9, adult
CPT/HCPCS: 80053; 81003; 83690; 84702; 85027; 94640; 99281; 99284; J0500

== ENCOUNTER 2016-11-22 19:56 | Inpatient (IN) | payer OTHER ==
[~2016-11-22] VITALS: Ht 167.6 cm; Wt 156.8 kg
[~2016-11-22 19:56] MED LIST changes: +BENTYL20 MG PO
[2016-11-22 23:26] LABS: HEMATOCRIT 30.3 % (36.0-46.0); MCH 19.8 PG (29.0-34.0); MEAN PLAT.VOLUME 8.6 uM^3 (9.5-12.4); PLATELET COUNT 427 K/uL (156-360); RBC DIS.WIDTH-SD 47.9 % (39-53); RED BLOOD COUNT 4.59 M/uL (3.80-5.20); WHITE BLOOD COUNT 11.5 K/uL (4.1-10.2)
[2016-11-22 23:37] LABS: CHLORIDE 110 mEq/L (99-109); EOSINOPHIL (%) 1.5 % (0-5); EOSINOPHIL COUNT 0.2 K/uL (0-0.3); IMMATURE GRANULOCYTE (%) 0.3 % (0.0-0.7); IMMATURE GRANULOCYTE COUNT 0.3 K/uL; LYMPHOCYTE COUNT 1.9 K/uL (1.0-2.8); MONOCYTE (%) 5.3 % (3-12); MONOCYTE COUNT 0.6 K/uL (0-0.8); NEUTROPHIL COUNT 8.7 K/uL (1.8-6.4); POTASSIUM 3.9 mEq/L (3.7-5.4); SODIUM 141 mEq/L (136-147)
[2016-11-22 23:38] LABS: GLUCOSE 171 mg/dL (70-99)
[2016-11-22 23:40] LABS: ANION GAP 10 MEQ/L (2-14)
[2016-11-22 23:42] LABS: GFR ESTIMATE (CALCULATED) > 59 mL/min/
[2016-11-22 23:43] LABS: UREA NITROGEN (BUN) 6 mg/dL (9-23)
[2016-11-22 23:52] LABS: QUANTITATIVE HCG < 4.0 MIU/ML
[2016-11-23 00:04] LABS: SERUM ETHYL ALCOHOL < 10 mg/dL
[2016-11-23 01:17] LABS: AMPHETAMINE NEGATIVE (500 ng/mL); BARBITURATES NEGATIVE (200 ng/mL); BENZODIAZEPINES NEGATIVE (150 ng/mL); COCAINE NEGATIVE (150 ng/mL); INTERNAL CONTROLS VALID? YES; METHADONE NEGATIVE (200 ng/mL); METHAMPHETAMINE NEGATIVE (500 ng/mL); OPIATES (MORPHINE) PRESUMPTIVE POSITIVE (100 ng/mL); OXYCODONE PRESUMPTIVE POSITIVE (100 ng/mL); PHENCYCLIDINE NEGATIVE (25 ng/mL); PROPOXYPHENE NEGATIVE (300 ng/mL); THC CANNABINOIDS NEGATIVE (50 ng/mL); TRICYCLIC ANTIDEPRESSANTS PRESUMPTIVE POSITIVE (300 ng/mL)
[2016-11-23 01:18] LABS: ADD MEDTOX COMMENT Y
[2016-11-23 04:12] VITALS: BP 161/84
[2016-11-23 06:40] LABS: POINT-OF-CARE METER ID UU13113830; POINT-OF-CARE USER ID ENVTLS63
[2016-11-23 08:03] VITALS: BP 140/68
[2016-11-23 11:45] VITALS: BP 141/79
[2016-11-23 15:40] VITALS: BP 123/86
[2016-11-24 07:59] VITALS: BP 128/62
[2016-11-24 16:04] VITALS: BP 126/70
[2016-11-25 07:51] VITALS: BP 124/69
[2016-11-25] MEDS ORDERED: DULOXETINE HCL30 MG PO (10:12)
[2016-12-11] MEDS ORDERED: AMOXICILLIN500 M1 PO (09:13)
== END 2016-11-25 13:55 | disposition home or self-care (01) | DRG 885 ==
LOC: EME 19:56 → 1WEST 11-23 02:17 → EDOF 11-23 02:17 → 1WEST 11-23 04:01
PROVIDERS: Emergency Medicine; Psychiatry & Neurology Psychiatry
DX: F33.2 Major depressive disorder, recurrent severe without psychotic features (principal); R45.851 Suicidal ideations; F41.8 Other specified anxiety disorders; L03.119 Cellulitis of unspecified part of limb; G89.29 Other chronic pain; E66.9 Obesity, unspecified; Z68.43 Body mass index [BMI] 50.0-59.9, adult; F60.9 Personality disorder, unspecified; Z62.820 Parent-biological child conflict; J45.909 Unspecified asthma, uncomplicated; I50.9 Heart failure, unspecified; J44.9 Chronic obstructive pulmonary disease, unspecified; M79.7 Fibromyalgia; K21.9 Gastro-esophageal reflux disease without esophagitis; I89.0 Lymphedema, not elsewhere classified; E11.9 Type 2 diabetes mellitus without complications; Z79.84 Long term (current) use of oral hypoglycemic drugs
CPT/HCPCS: 80048; 80053; 81003; 82948; 83690; 84702; 84999; 85025; 85027; 90839; 93005; 94640; 94640 76; 97150 GO; 97165 GO; 99202; 99281; 99284; 99285; G0480; J0500

== ENCOUNTER 2016-12-09 13:38 | Emergency (ER) | payer OTHER ==
[~2016-12-09] VITALS: Ht 167.6 cm; Wt 154.9 kg
[2016-12-09 17:25] LABS: HEMATOCRIT 35.6 % (36.0-46.0); MCH 19.5 PG (29.0-34.0); MCHC 27.8 G/DL (30.0-36.0); MCV 70.2 FL (83-99); MEAN PLAT.VOLUME 8.7 uM^3 (9.5-12.4); PLATELET COUNT 497 K/uL (156-360); RBC DIS.WIDTH-CV 21.9 % (11.8-14.6); RBC DIS.WIDTH-SD 53.9 % (39-53); RED BLOOD COUNT 5.07 M/uL (3.80-5.20)
[2016-12-09 17:28] LABS: CHLORIDE 107 mEq/L (99-109); POTASSIUM 3.4 mEq/L (3.7-5.4); SODIUM 140 mEq/L (136-147)
[2016-12-09 17:29] LABS: GLUCOSE 101 mg/dL (70-99)
[2016-12-09 17:31] LABS: ANION GAP 10 MEQ/L (2-14)
[2016-12-09 17:33] LABS: GFR ESTIMATE (CALCULATED) > 59 mL/min/
[2016-12-09 17:34] LABS: UREA NITROGEN (BUN) 6 mg/dL (9-23)
[2016-12-09] MEDS ORDERED: CEFDINIR300 MG PO (18:18)
[2016-12-09 18:22] VITALS: BP 137/88
[2016-12-11] MEDS ORDERED: AMOXICILLIN500 M1 PO (09:13)
== END 2016-12-09 18:31 | disposition home or self-care (01) ==
LOC: EME 13:38
PROVIDERS: Physician Assistant
DX: J01.90 Acute sinusitis, unspecified (principal); D50.0 Iron deficiency anemia secondary to blood loss (chronic); E87.6 Hypokalemia; J45.909 Unspecified asthma, uncomplicated; J44.9 Chronic obstructive pulmonary disease, unspecified; E11.9 Type 2 diabetes mellitus without complications; Z79.84 Long term (current) use of oral hypoglycemic drugs; K21.9 Gastro-esophageal reflux disease without esophagitis; Z86.14 Personal history of Methicillin resistant Staphylococcus aureus infection
CPT/HCPCS: 71020; 80048; 85027; 99281; 99284

== ENCOUNTER 2016-12-22 22:38 | Emergency (ER) | payer OTHER ==
[~2016-12-22] VITALS: Ht 167.6 cm; Wt 152.3 kg
[~2016-12-22 22:38] MED LIST changes: +AMOXICILLIN500 M1 PO; +CEFDINIR300 MG PO
[2016-12-22] MEDS ORDERED: DICLOXACILLIN500 MG PO (23:49)
[2016-12-23 00:25] VITALS: BP 120/84
== END 2016-12-23 00:26 | disposition home or self-care (01) ==
LOC: EME 22:38
DX: L03.115 Cellulitis of right lower limb (principal); L03.116 Cellulitis of left lower limb; S81.801D Unspecified open wound, right lower leg, subsequent encounter; S81.802D Unspecified open wound, left lower leg, subsequent encounter; X58.XXXD Exposure to other specified factors, subsequent encounter; J44.9 Chronic obstructive pulmonary disease, unspecified; J45.909 Unspecified asthma, uncomplicated; G89.29 Other chronic pain; Z86.14 Personal history of Methicillin resistant Staphylococcus aureus infection; Z79.891 Long term (current) use of opiate analgesic
CPT/HCPCS: 99281; 99283

== ENCOUNTER 2017-01-02 06:40 | Emergency (ER) | payer OTHER ==
[~2017-01-02] VITALS: Ht 167.6 cm; Wt 151.5 kg
[~2017-01-02 06:40] MED LIST changes: +DICLOXACILLIN500 MG PO
[2017-01-02 09:07] LABS: ADD MIUA? YES; BILIRUBIN SMALL; BLOOD NEGATIVE; COLOR YELLOW ((YELLOW)); GLUCOSE (STRIP) NEGATIVE; KETONES 5; LEUKOCYTES TRACE; NITRITE NEGATIVE; PROTEIN (STRIP) 30; SPECIFIC GRAVITY 1.027 (1.000-1.030); UROBILINOGEN 0.2 MG/DL (0.2-1.0)
[2017-01-02 09:21] LABS: BACTERIA NONE SEEN /HPF; CALCIUM OXALATE CRYSTALS 2+ /HPF; EPITHELIAL CELLS 1+ /HPF; MUCUS TRACE /LPF
[2017-01-02 09:33] LABS: CHLORIDE 108 mEq/L (99-109); POTASSIUM 3.5 mEq/L (3.7-5.4); SODIUM 138 mEq/L (136-147)
[2017-01-02 09:35] LABS: EOSINOPHIL (%) 0.4 % (0-5); GLUCOSE 146 mg/dL (70-99); HEMATOCRIT 33.3 % (36.0-46.0); IMMATURE GRANULOCYTE (%) 0.4 % (0.0-0.7); INSTRUMENT ABS NEUTROPHIL CT 8.5 K/uL; LYMPHOCYTE COUNT 1.3 K/uL (1.0-2.8); MCH 19.7 PG (29.0-34.0); MCHC 28.8 G/DL (30.0-36.0); MCV 68.4 FL (83-99); MEAN PLAT.VOLUME 8.8 uM^3 (9.5-12.4); MONOCYTE (%) 4.4 % (3-12); MONOCYTE COUNT 0.5 K/uL (0-0.8); NEUTROPHIL (%) 82.1 % (45-76); NEUTROPHIL COUNT 8.5 K/uL (1.8-6.4); PLATELET COUNT 381 K/uL (156-360); RBC DIS.WIDTH-CV 21.4 % (11.8-14.6); RBC DIS.WIDTH-SD 51.1 % (39-53); RED BLOOD COUNT 4.87 M/uL (3.80-5.20); WHITE BLOOD COUNT 10.3 K/uL (4.1-10.2)
[2017-01-02 09:36] LABS: ANION GAP 11 MEQ/L (2-14)
[2017-01-02 09:39] LABS: GFR ESTIMATE (CALCULATED) > 59 mL/min/
[2017-01-02 09:40] LABS: UREA NITROGEN (BUN) 8 mg/dL (9-23)
[2017-01-02] MEDS ORDERED: LEVAQUIN750 MG PO (11:34)
[2017-01-02] MEDS ORDERED: PREDNISONE50 MG PO (11:34)
[2017-01-02 11:55] VITALS: BP 155/95
== END 2017-01-02 11:56 | disposition home or self-care (01) ==
LOC: EME 06:40
PROVIDERS: Emergency Medicine
DX: J45.901 Unspecified asthma with (acute) exacerbation (principal); N39.0 Urinary tract infection, site not specified; Z91.040 Latex allergy status; Z88.6 Allergy status to analgesic agent; Z88.2 Allergy status to sulfonamides
CPT/HCPCS: 71010; 74176; 80048; 81003; 85025; 94640; 99281; 99284; J2270; J7030

== ENCOUNTER 2017-01-07 05:13 | Emergency (ER) | payer OTHER ==
[~2017-01-07] VITALS: Ht 167.6 cm; Wt 152.6 kg
[~2017-01-07 05:13] MED LIST changes: +LEVAQUIN750 MG PO
[2017-01-07 06:39] VITALS: BP 123/58
== END 2017-01-07 06:41 | disposition home or self-care (01) ==
LOC: EME 05:13
DX: L03.115 Cellulitis of right lower limb (principal); L03.116 Cellulitis of left lower limb; E11.9 Type 2 diabetes mellitus without complications; J44.9 Chronic obstructive pulmonary disease, unspecified
CPT/HCPCS: 99281; 99284

== ENCOUNTER 2017-01-10 00:23 | Emergency (ER) | payer OTHER ==
[~2017-01-10] VITALS: Ht 167.6 cm; Wt 152.0 kg
[2017-01-10 02:57] VITALS: BP 197/100
== END 2017-01-10 03:05 | disposition home or self-care (01) ==
LOC: EME 00:23 → EXP 00:23
DX: I83.12 Varicose veins of left lower extremity with inflammation (principal); I83.11 Varicose veins of right lower extremity with inflammation; G89.29 Other chronic pain; Z91.040 Latex allergy status; Z88.6 Allergy status to analgesic agent; Z88.2 Allergy status to sulfonamides
CPT/HCPCS: 99281; 99284; J3010

== ENCOUNTER 2017-01-17 03:38 | Emergency (ER) | payer OTHER ==
[~2017-01-17] VITALS: Ht 167.6 cm; Wt 150.5 kg
[2017-01-17 03:42] VITALS: BP 150/101
== END 2017-01-17 06:28 | disposition home or self-care (01) ==
LOC: EME 03:38
DX: S81.802D Unspecified open wound, left lower leg, subsequent encounter (principal); S81.801D Unspecified open wound, right lower leg, subsequent encounter; X58.XXXD Exposure to other specified factors, subsequent encounter; Z48.00 Encounter for change or removal of nonsurgical wound dressing; G89.29 Other chronic pain; E11.9 Type 2 diabetes mellitus without complications; J44.9 Chronic obstructive pulmonary disease, unspecified; J45.909 Unspecified asthma, uncomplicated; Z79.891 Long term (current) use of opiate analgesic; Z79.84 Long term (current) use of oral hypoglycemic drugs; Z79.3 Long term (current) use of hormonal contraceptives; Z86.14 Personal history of Methicillin resistant Staphylococcus aureus infection
CPT/HCPCS: 99281; 99284

== ENCOUNTER 2017-01-20 08:55 | Emergency (ER) | payer OTHER ==
[~2017-01-20] VITALS: Ht 167.6 cm; Wt 150.0 kg
[2017-01-20 09:01] VITALS: BP 153/96
[2017-01-21] MEDS ORDERED: DUONEB 2.5-0.5 M3 ML AEROSOL (20:30)
== END 2017-01-20 12:17 | disposition home or self-care (01) ==
LOC: EME 08:55 → EXP 08:55
DX: Z48.00 Encounter for change or removal of nonsurgical wound dressing (principal); L03.116 Cellulitis of left lower limb; L03.115 Cellulitis of right lower limb; J44.9 Chronic obstructive pulmonary disease, unspecified; K21.9 Gastro-esophageal reflux disease without esophagitis; G43.909 Migraine, unspecified, not intractable, without status migrainosus; M79.7 Fibromyalgia; G47.30 Sleep apnea, unspecified; F41.9 Anxiety disorder, unspecified; G89.29 Other chronic pain; M54.9 Dorsalgia, unspecified
CPT/HCPCS: 99281; 99284; A6212

== ENCOUNTER 2017-01-21 17:16 | Emergency (ER) | payer OTHER ==
[~2017-01-21] VITALS: Ht 167.6 cm; Wt 150.0 kg
[2017-01-21 19:06] LABS: HEMATOCRIT 34.7 % (36.0-46.0); MCH 19.4 PG (29.0-34.0); MCHC 28.5 G/DL (30.0-36.0); MCV 68.2 FL (83-99); MEAN PLAT.VOLUME 8.7 uM^3 (9.5-12.4); PLATELET COUNT 450 K/uL (156-360); RBC DIS.WIDTH-CV 21.9 % (11.8-14.6); RBC DIS.WIDTH-SD 51.2 % (39-53); RED BLOOD COUNT 5.09 M/uL (3.80-5.20); WHITE BLOOD COUNT 8.7 K/uL (4.1-10.2)
[2017-01-21 19:15] LABS: CHLORIDE 106 mEq/L (99-109); POTASSIUM 3.2 mEq/L (3.7-5.4); SODIUM 139 mEq/L (136-147)
[2017-01-21 19:17] LABS: GLUCOSE 137 mg/dL (70-99)
[2017-01-21 19:18] LABS: ANION GAP 9 MEQ/L (2-14)
[2017-01-21 19:21] LABS: GFR ESTIMATE (CALCULATED) > 59 mL/min/
[2017-01-21 19:22] LABS: UREA NITROGEN (BUN) 7 mg/dL (9-23)
[2017-01-21] MEDS ORDERED: DUONEB 2.5-0.5 M3 ML AEROSOL (20:30)
[2017-01-21 21:25] VITALS: BP 144/82
== END 2017-01-21 21:26 | disposition home or self-care (01) ==
LOC: EME 17:16
DX: G89.29 Other chronic pain (principal); J44.1 Chronic obstructive pulmonary disease with (acute) exacerbation; L97.919 Non-pressure chronic ulcer of unspecified part of right lower leg with unspecified severity; L97.929 Non-pressure chronic ulcer of unspecified part of left lower leg with unspecified severity; E11.9 Type 2 diabetes mellitus without complications; I50.9 Heart failure, unspecified; K21.9 Gastro-esophageal reflux disease without esophagitis; Z91.040 Latex allergy status; Z88.6 Allergy status to analgesic agent; Z88.2 Allergy status to sulfonamides
CPT/HCPCS: 71020; 80048; 85027; 94640; 99281; 99284; A6212

== ENCOUNTER 2017-02-10 05:16 | Emergency (ER) | payer OTHER ==
[~2017-02-10] VITALS: Ht 170.2 cm; Wt 145.0 kg
[~2017-02-10 05:16] MED LIST changes: +DUONEB 2.5-0.5 M3 ML AEROSOL
[2017-02-10 06:24] LABS: CHLORIDE 106 mEq/L (99-109); POTASSIUM 3.9 mEq/L (3.7-5.4); SODIUM 139 mEq/L (136-147)
[2017-02-10 06:26] LABS: GLUCOSE 102 mg/dL (70-99)
[2017-02-10 06:27] LABS: ANION GAP 11 MEQ/L (2-14)
[2017-02-10 06:30] LABS: GFR ESTIMATE (CALCULATED) > 59 mL/min/
[2017-02-10 06:31] LABS: UREA NITROGEN (BUN) 7 mg/dL (9-23)
[2017-02-10 06:36] LABS: BASOPHIL COUNT 0.1 K/uL (0-0.1); EOSINOPHIL (%) 1.6 % (0-5); EOSINOPHIL COUNT 0.2 K/uL (0-0.3); HEMATOCRIT 31.6 % (36.0-46.0); IMMATURE GRANULOCYTE (%) 0.6 % (0.0-0.7); IMMATURE GRANULOCYTE COUNT 0.1 K/uL; INSTRUMENT ABS NEUTROPHIL CT 8.3 K/uL; LYMPHOCYTE COUNT 2.8 K/uL (1.0-2.8); MCH 19.1 PG (29.0-34.0); MCHC 28.8 G/DL (30.0-36.0); MCV 66.4 FL (83-99); MEAN PLAT.VOLUME 8.8 uM^3 (9.5-12.4); MONOCYTE (%) 5.2 % (3-12); MONOCYTE COUNT 0.6 K/uL (0-0.8); NEUTROPHIL (%) 69.2 % (45-76); NEUTROPHIL COUNT 8.3 K/uL (1.8-6.4); PLATELET COUNT 456 K/uL (156-360); RBC DIS.WIDTH-CV 21.2 % (11.8-14.6); RBC DIS.WIDTH-SD 49.1 % (39-53); RED BLOOD COUNT 4.76 M/uL (3.80-5.20)
[2017-02-10 07:12] VITALS: BP 128/90
== END 2017-02-10 07:13 | disposition home or self-care (01) ==
LOC: EME 05:16
PROVIDERS: Physician Assistant
DX: M79.605 Pain in left leg (principal); M79.604 Pain in right leg; G89.29 Other chronic pain; R60.0 Localized edema; S81.802A Unspecified open wound, left lower leg, initial encounter; S81.801A Unspecified open wound, right lower leg, initial encounter
CPT/HCPCS: 80048; 83605; 85025; 87040; 99281; 99285; J1170

== ENCOUNTER 2017-02-15 08:36 | Emergency (ER) | payer OTHER ==
[~2017-02-15] VITALS: Ht 167.6 cm; Wt 147.7 kg
[2017-02-15 09:55] LABS: HEMATOCRIT 32.5 % (36.0-46.0); MCH 19.1 PG (29.0-34.0); MCHC 28.9 G/DL (30.0-36.0); MCV 66.1 FL (83-99); MEAN PLAT.VOLUME 8.3 uM^3 (9.5-12.4); PLATELET COUNT 590 K/uL (156-360); RBC DIS.WIDTH-CV 21.2 % (11.8-14.6); RBC DIS.WIDTH-SD 48.4 % (39-53); RED BLOOD COUNT 4.92 M/uL (3.80-5.20); WHITE BLOOD COUNT 14.1 K/uL (4.1-10.2)
[2017-02-15 09:57] LABS: CHLORIDE 104 mEq/L (99-109); POTASSIUM 3.6 mEq/L (3.7-5.4); SODIUM 142 mEq/L (136-147)
[2017-02-15 09:58] LABS: GLUCOSE 158 mg/dL (70-99)
[2017-02-15 10:00] LABS: ANION GAP 12 MEQ/L (2-14)
[2017-02-15 10:02] LABS: GFR ESTIMATE (CALCULATED) > 59 mL/min/
[2017-02-15 10:03] LABS: UREA NITROGEN (BUN) 13 mg/dL (9-23)
[2017-02-15 11:56] VITALS: BP 140/94
== END 2017-02-15 11:57 | disposition home or self-care (01) ==
LOC: EME 08:36
PROVIDERS: Nurse Practitioner Family
DX: J44.9 Chronic obstructive pulmonary disease, unspecified (principal); J45.909 Unspecified asthma, uncomplicated; E11.9 Type 2 diabetes mellitus without complications; I50.9 Heart failure, unspecified; Z79.84 Long term (current) use of oral hypoglycemic drugs; Z91.040 Latex allergy status; Z88.6 Allergy status to analgesic agent; Z88.2 Allergy status to sulfonamides
CPT/HCPCS: 71020; 80048; 85027; 94640; 99281; 99284

== ENCOUNTER 2017-02-19 01:58 | Emergency (ER) | payer OTHER ==
[~2017-02-19] VITALS: Ht 167.6 cm; Wt 147.7 kg
[2017-02-19 04:04] VITALS: BP 136/97
== END 2017-02-19 04:09 | disposition home or self-care (01) ==
LOC: EME 01:58
DX: G89.29 Other chronic pain (principal); L97.929 Non-pressure chronic ulcer of unspecified part of left lower leg with unspecified severity; L97.919 Non-pressure chronic ulcer of unspecified part of right lower leg with unspecified severity; Z91.040 Latex allergy status; Z88.6 Allergy status to analgesic agent; Z88.2 Allergy status to sulfonamides
CPT/HCPCS: 99281; 99284; J1170

== ENCOUNTER 2017-02-24 00:32 | Emergency (ER) | payer OTHER ==
[~2017-02-24] VITALS: Ht 167.6 cm; Wt 147.7 kg
[2017-02-24 05:24] VITALS: BP 145/72
== END 2017-02-24 05:25 | disposition home or self-care (01) ==
LOC: EME 00:32
DX: L03.116 Cellulitis of left lower limb (principal); L03.115 Cellulitis of right lower limb; M79.604 Pain in right leg; M79.605 Pain in left leg; G89.29 Other chronic pain; M79.7 Fibromyalgia; K21.9 Gastro-esophageal reflux disease without esophagitis; E11.9 Type 2 diabetes mellitus without complications; J45.909 Unspecified asthma, uncomplicated; J44.9 Chronic obstructive pulmonary disease, unspecified
CPT/HCPCS: 99281; 99283; J1170

== ENCOUNTER 2017-03-12 22:35 | Emergency (ER) | payer OTHER ==
[~2017-03-12] VITALS: Ht 167.6 cm; Wt 154.5 kg
[2017-03-13 00:41] LABS: ADD MIUA? YES; BILIRUBIN NEGATIVE; BLOOD NEGATIVE; COLOR YELLOW ((YELLOW)); GLUCOSE (STRIP) 50; KETONES NEGATIVE; LEUKOCYTES TRACE; NITRITE NEGATIVE; PROTEIN (STRIP) NEGATIVE; SPECIFIC GRAVITY 1.013 (1.000-1.030); UROBILINOGEN 0.2 MG/DL (0.2-1.0)
[2017-03-13 01:03] LABS: AMORPHOUS PHOSPHATE CRYSTALS 3+; BACTERIA NONE SEEN /HPF; CRYSTALS PRESENT; EPITHELIAL CELLS NONE SEEN /HPF; MUCUS NONE SEEN /LPF; RED BLOOD CELLS 0-5 /HPF (0-5); UCUL ADDED? NO; WHITE BLOOD CELLS 0-5 /HPF (0-5)
[2017-03-13 01:53] VITALS: BP 150/78
== END 2017-03-13 01:55 | disposition home or self-care (01) ==
LOC: EME 22:35 → RME 22:35
PROVIDERS: Nurse Practitioner Family
DX: L88 Pyoderma gangrenosum (principal); L97.829 Non-pressure chronic ulcer of other part of left lower leg with unspecified severity; L97.819 Non-pressure chronic ulcer of other part of right lower leg with unspecified severity; I89.0 Lymphedema, not elsewhere classified; M79.604 Pain in right leg; M79.605 Pain in left leg; J44.9 Chronic obstructive pulmonary disease, unspecified; E11.9 Type 2 diabetes mellitus without complications; K21.9 Gastro-esophageal reflux disease without esophagitis; R56.9 Unspecified convulsions; Z79.84 Long term (current) use of oral hypoglycemic drugs; E66.01 Morbid (severe) obesity due to excess calories; Z68.42 Body mass index [BMI] 45.0-49.9, adult
CPT/HCPCS: 81003; 99281; 99283

== ENCOUNTER 2017-03-14 12:28 | Day surgery (SDC) | payer OTHER ==
[~2017-03-14] VITALS: Ht 167.6 cm; Wt 154.0 kg
[2017-03-14 16:23] VITALS: BP 132/46
== END 2017-03-14 16:40 | disposition home or self-care (01) ==
LOC: CATH 12:28
DX: T82.514A Breakdown (mechanical) of infusion catheter, initial encounter (principal); I87.8 Other specified disorders of veins; G89.4 Chronic pain syndrome; M79.605 Pain in left leg; M79.604 Pain in right leg; J45.909 Unspecified asthma, uncomplicated; E11.9 Type 2 diabetes mellitus without complications; Z79.891 Long term (current) use of opiate analgesic
CPT/HCPCS: C1751; C1894; J0690; J1644; J2250; J3010; S0020

== ENCOUNTER 2017-03-19 23:16 | Emergency (ER) | payer OTHER ==
[~2017-03-19] VITALS: Ht 167.6 cm; Wt 152.3 kg
[2017-03-20 00:29] VITALS: BP 152/84
== END 2017-03-20 00:30 | disposition home or self-care (01) ==
LOC: EXP 23:16 → EME 23:16 → EXP 03-20 00:30
DX: M79.605 Pain in left leg (principal); M79.604 Pain in right leg; G89.29 Other chronic pain; M79.7 Fibromyalgia; E11.9 Type 2 diabetes mellitus without complications; R56.9 Unspecified convulsions; F31.9 Bipolar disorder, unspecified; Z90.49 Acquired absence of other specified parts of digestive tract; Z79.84 Long term (current) use of oral hypoglycemic drugs
CPT/HCPCS: 99281; 99284; J3010

== ENCOUNTER 2017-04-08 04:00 | Emergency (ER) | payer OTHER ==
[~2017-04-08] VITALS: Ht 167.6 cm; Wt 154.4 kg
[2017-04-08 05:04] VITALS: BP 152/101
== END 2017-04-08 05:11 | disposition home or self-care (01) ==
LOC: EME 04:00
DX: L03.116 Cellulitis of left lower limb (principal); L03.115 Cellulitis of right lower limb; L98.8 Other specified disorders of the skin and subcutaneous tissue; G89.29 Other chronic pain; G47.30 Sleep apnea, unspecified; M79.7 Fibromyalgia; E11.9 Type 2 diabetes mellitus without complications; Z79.84 Long term (current) use of oral hypoglycemic drugs
CPT/HCPCS: 99281; 99283; J2270

== ENCOUNTER 2017-04-09 01:52 | Emergency (ER) | payer OTHER ==
[~2017-04-09] VITALS: Ht 167.6 cm; Wt 155.4 kg
[2017-04-09 05:19] VITALS: BP 140/87
== END 2017-04-09 05:20 | disposition home or self-care (01) ==
LOC: EME 01:52 → EXP 01:52
DX: G43.909 Migraine, unspecified, not intractable, without status migrainosus (principal); L03.115 Cellulitis of right lower limb; L03.116 Cellulitis of left lower limb; E11.9 Type 2 diabetes mellitus without complications; Z79.84 Long term (current) use of oral hypoglycemic drugs
CPT/HCPCS: 99281; 99284

== ENCOUNTER 2017-04-11 07:56 | Inpatient (IN) | payer OTHER ==
[~2017-04-11] VITALS: Ht 167.6 cm; Wt 151.5 kg
[2017-04-11 08:43] LABS: POINT-OF-CARE METER ID UU13113702
[2017-04-11 08:56] LABS: CARBON DIOXIDE (BICARBONATE) 25.1 MEQ/L (20-31)
[2017-04-11 08:58] LABS: CHLORIDE 107 mEq/L (99-109); POTASSIUM 3.9 mEq/L (3.7-5.4); SODIUM 140 mEq/L (136-147)
[2017-04-11 08:59] LABS: GLUCOSE 258 mg/dL (70-99)
[2017-04-11 09:01] LABS: ANION GAP 12 MEQ/L (2-14)
[2017-04-11 09:03] LABS: GFR ESTIMATE (CALCULATED) > 59 mL/min/
[2017-04-11 09:04] LABS: UREA NITROGEN (BUN) 10 mg/dL (9-23)
[2017-04-11 09:25] LABS: EOSINOPHIL (%) 0.5 % (0-5); EOSINOPHIL COUNT 0.1 K/uL (0-0.3); HEMATOCRIT 31.5 % (36.0-46.0); IMMATURE GRANULOCYTE (%) 0.6 % (0.0-0.7); IMMATURE GRANULOCYTE COUNT 0.1 K/uL; INSTRUMENT ABS NEUTROPHIL CT 12.5 K/uL; LYMPHOCYTE COUNT 1.6 K/uL (1.0-2.8); MCH 18.3 PG (29.0-34.0); MCHC 27.6 G/DL (30.0-36.0); MCV 66.2 FL (83-99); MEAN PLAT.VOLUME 9.4 uM^3 (9.5-12.4); MONOCYTE (%) 2.6 % (3-12); MONOCYTE COUNT 0.4 K/uL (0-0.8); NEUTROPHIL (%) 85.6 % (45-76); NEUTROPHIL COUNT 12.5 K/uL (1.8-6.4); PLATELET COUNT 368 K/uL (156-360); RBC DIS.WIDTH-CV 22.4 % (11.8-14.6); RED BLOOD COUNT 4.76 M/uL (3.80-5.20); WHITE BLOOD COUNT 14.7 K/uL (4.1-10.2)
[2017-04-11 10:46] LABS: INTER. NORMALIZED RATIO 1.1; PROTHROMBIN TIME 12.6 SEC (10.2-12.9)
[2017-04-11 10:49] LABS: PTT 30.2 SEC (25-37)
[2017-04-11] MEDS ORDERED: PREDNISONE10 MG PO (12:09)
[2017-04-11] MEDS ORDERED: DULOXETINE HCL30 MG PO (12:11)
[2017-04-11] MEDS ORDERED: BUSPAR10 MG PO (12:11)
[2017-04-11] MEDS ORDERED: ATARAX,VISTARIL25 MG PO (12:12)
[2017-04-11] MEDS ORDERED: METHADONE5 MG PO (12:13)
[2017-04-11] MEDS ORDERED: HYDROMORPHONE E16 MG PO (12:13)
[2017-04-11] MEDS ORDERED: ARIPIPRAZOLE20 MG PO (12:13)
[2017-04-11] MEDS ORDERED: AMOX TR-K CLV1 EAC4 PO (12:14)
[2017-04-11 15:55] LABS: POINT-OF-CARE METER ID UU13113702
[2017-04-11 23:48] VITALS: BP 157/87
[2017-04-12 03:41] VITALS: BP 164/85
[2017-04-12 06:35] LABS: HEMATOCRIT 28.5 % (36.0-46.0); MCH 19.1 PG (29.0-34.0); MCHC 28.4 G/DL (30.0-36.0); MCV 67.1 FL (83-99); MEAN PLAT.VOLUME 8.8 uM^3 (9.5-12.4); PLATELET COUNT 348 K/uL (156-360); RBC DIS.WIDTH-CV 22.3 % (11.8-14.6); RBC DIS.WIDTH-SD 51.8 % (39-53); RED BLOOD COUNT 4.25 M/uL (3.80-5.20); WHITE BLOOD COUNT 11.2 K/uL (4.1-10.2)
[2017-04-12 07:10] LABS: ANION GAP 6 MEQ/L (2-14); CHLORIDE 107 MEQ/L (99-109); GFR ESTIMATE (CALCULATED) > 59 mL/min/; GLUCOSE 130 mg/dL (70-99); POTASSIUM 3.8 MEQ/L (3.7-5.4); SAMPLE HEMOLYSIS CHECK 0; SAMPLE ICTERIC CHECK 0; SAMPLE LIPEMIA CHECK 0; SODIUM 141 MEQ/L (136-147); UREA NITROGEN (BUN) 10 mg/dL (9-23)
[2017-04-12 08:09] VITALS: BP 153/99
[2017-04-12 09:12] LABS: IRON 18 MCG/DL (35-150)
[2017-04-12 09:47] LABS: FERRITIN 10 NG/ML (10-291)
[2017-04-12 11:51] LABS: POINT-OF-CARE METER ID UU13113717
[2017-04-12 11:57] VITALS: BP 145/87
[2017-04-12 16:17] VITALS: BP 136/83
[2017-04-12 17:00] LABS: POINT-OF-CARE METER ID UU13113717
[2017-04-12 19:04] VITALS: BP 183/94
[2017-04-13] VITALS: BP 181/97
[2017-04-13 04:00] VITALS: BP 183/92
[2017-04-13 07:36] VITALS: BP 141/77
[2017-04-13 11:14] VITALS: BP 134/76
[2017-04-13 11:38] LABS: POINT-OF-CARE METER ID UU14174225
[2017-04-13 15:09] VITALS: BP 139/79
[2017-04-13 18:43] VITALS: BP 127/73
[2017-04-14] VITALS: BP 159/96
[2017-04-14 06:27] LABS: ANION GAP 13 MEQ/L (2-14); CHLORIDE 106 MEQ/L (99-109); POTASSIUM 3.5 MEQ/L (3.7-5.4); SAMPLE HEMOLYSIS CHECK 0; SAMPLE ICTERIC CHECK 0; SAMPLE LIPEMIA CHECK 0; SODIUM 140 MEQ/L (136-147)
[2017-04-14 06:28] LABS: HEMATOCRIT 29.6 % (36.0-46.0); MCH 18.9 PG (29.0-34.0); MCHC 28.7 G/DL (30.0-36.0); MCV 65.9 FL (83-99); MEAN PLAT.VOLUME 9.4 uM^3 (9.5-12.4); PLATELET COUNT 382 K/uL (156-360); RBC DIS.WIDTH-CV 22.3 % (11.8-14.6); RBC DIS.WIDTH-SD 50.7 % (39-53); RED BLOOD COUNT 4.49 M/uL (3.80-5.20); WHITE BLOOD COUNT 12.4 K/uL (4.1-10.2)
[2017-04-14 06:33] LABS: GFR ESTIMATE (CALCULATED) > 59 mL/min/; GLUCOSE 123 mg/dL (70-99); UREA NITROGEN (BUN) 10 mg/dL (9-23)
[2017-04-14] MEDS ORDERED: BENADRYL50 MG/ML IV (08:06)
[2017-04-14] MEDS ORDERED: VANCOMYCIN HCL1 GM IV (08:06)
[2017-04-14 08:15] VITALS: BP 137/63
[2017-04-14] MEDS ORDERED: ZOSYN 3.3753.375 GM IV (11:35)
[2017-04-14] MEDS ORDERED: LEVAQUIN750 MG PO (11:35)
== END 2017-04-14 14:44 | disposition home health service (06) | DRG 872 ==
LOC: EME 07:56 → 5SOUTH 14:22 → EDOF 14:22 → 5SOUTH 17:54
PROVIDERS: Internal Medicine; Physician Assistant
DX: A41.9 Sepsis, unspecified organism (principal); E87.2 Acidosis; L03.115 Cellulitis of right lower limb; I83.018 Varicose veins of right lower extremity with ulcer other part of lower leg; I83.028 Varicose veins of left lower extremity with ulcer other part of lower leg; E66.01 Morbid (severe) obesity due to excess calories; L03.116 Cellulitis of left lower limb; E11.9 Type 2 diabetes mellitus without complications; I10 Essential (primary) hypertension; J44.9 Chronic obstructive pulmonary disease, unspecified; F31.9 Bipolar disorder, unspecified; F41.9 Anxiety disorder, unspecified; M19.90 Unspecified osteoarthritis, unspecified site; G47.33 Obstructive sleep apnea (adult) (pediatric); B95.62 Methicillin resistant Staphylococcus aureus infection as the cause of diseases classified elsewhere; Z90.49 Acquired absence of other specified parts of digestive tract; Z91.19 Patient's noncompliance with other medical treatment and regimen
CPT/HCPCS: 80048; 80202; 82728; 82803; 82948; 83540; 83605; 84466; 85025; 85027; 85610; 85730; 87040; 87070; 87075; 87205; 93925; 93970; 94640; 94640 76; 99202; 99281; 99283; 99284; 99285; J0360; J1200; J1650; J1815; J2270; J2543; J3010; J3370; J7030; J7040; J7512; Q0177

== ENCOUNTER 2017-04-20 15:27 | Emergency (ER) | payer OTHER ==
[~2017-04-20] VITALS: Ht 165.1 cm; Wt 170.5 kg
[~2017-04-20 15:27] MED LIST changes: +AMOX TR-K CLV1 EAC4 PO; +ARIPIPRAZOLE20 MG PO; +BENADRYL50 MG/ML IV; +METHADONE5 MG PO; +VANCOMYCIN HCL1 GM IV; +ZOSYN 3.3753.375 GM IV
[2017-04-20 15:54] LABS: POINT-OF-CARE METER ID UU13113778
[2017-04-20 16:05] LABS: ADD MIUA? YES; BILIRUBIN NEGATIVE; BLOOD NEGATIVE; COLOR YELLOW ((YELLOW)); GLUCOSE (STRIP) >=500; KETONES NEGATIVE; LEUKOCYTES TRACE; NITRITE NEGATIVE; PROTEIN (STRIP) NEGATIVE; SPECIFIC GRAVITY 1.011 (1.000-1.030); UROBILINOGEN 0.2 MG/DL (0.2-1.0)
[2017-04-20 16:09] LABS: BACTERIA RARE /HPF; EPITHELIAL CELLS RARE /HPF; MUCUS NONE SEEN /LPF; RED BLOOD CELLS 0-5 /HPF (0-5); UCUL ADDED? NO; WHITE BLOOD CELLS 0-5 /HPF (0-5)
[2017-04-20 17:00] LABS: CARBON DIOXIDE (BICARBONATE) 26.7 MEQ/L (20-31)
[2017-04-20 17:03] LABS: HEMATOCRIT 34.7 % (36.0-46.0); MCH 18.3 PG (29.0-34.0); MCV 65.5 FL (83-99); PLATELET COUNT 524 K/uL (156-360); RBC DIS.WIDTH-CV 22.5 % (11.8-14.6); RBC DIS.WIDTH-SD 50.3 % (39-53); WHITE BLOOD COUNT 14.3 K/uL (4.1-10.2)
[2017-04-20 17:08] LABS: CHLORIDE 103 mEq/L (99-109); POTASSIUM 4.3 mEq/L (3.7-5.4); SODIUM 136 mEq/L (136-147)
[2017-04-20 17:10] LABS: GLUCOSE 273 mg/dL (70-99)
[2017-04-20 17:11] LABS: ANION GAP 10 MEQ/L (2-14)
[2017-04-20 17:14] LABS: GFR ESTIMATE (CALCULATED) 58 mL/min/
[2017-04-20 17:15] LABS: UREA NITROGEN (BUN) 8 mg/dL (9-23)
[2017-04-20 18:25] LABS: POINT-OF-CARE METER ID UU13113800
[2017-04-20 18:49] VITALS: BP 144/81
== END 2017-04-20 18:52 | disposition home or self-care (01) ==
LOC: EME 15:27
PROVIDERS: Physician Assistant
DX: E11.65 Type 2 diabetes mellitus with hyperglycemia (principal); R56.9 Unspecified convulsions; K21.9 Gastro-esophageal reflux disease without esophagitis; G89.29 Other chronic pain; M54.9 Dorsalgia, unspecified; J44.9 Chronic obstructive pulmonary disease, unspecified; Z79.84 Long term (current) use of oral hypoglycemic drugs
CPT/HCPCS: 80048; 81003; 82803; 82948; 85027; 99281; 99285; J2405; J3010; J7030

== ENCOUNTER 2017-04-26 19:37 | Inpatient (IN) | payer OTHER ==
[~2017-04-26] VITALS: Ht 165.1 cm; Wt 155.3 kg
[2017-04-26 21:47] LABS: ADD MIUA? YES; BILIRUBIN NEGATIVE; BLOOD NEGATIVE; COLOR YELLOW ((YELLOW)); GLUCOSE (STRIP) NEGATIVE; KETONES NEGATIVE; LEUKOCYTES NEGATIVE; NITRITE NEGATIVE; PROTEIN (STRIP) NEGATIVE; SPECIFIC GRAVITY 1.015 (1.000-1.030); UROBILINOGEN 0.2 MG/DL (0.2-1.0)
[2017-04-26 21:50] LABS: CHLORIDE 106 mEq/L (99-109); HEMATOCRIT 31.8 % (36.0-46.0); MCH 17.9 PG (29.0-34.0); PLATELET COUNT 518 K/uL (156-360); POTASSIUM 4.2 mEq/L (3.7-5.4); RBC DIS.WIDTH-CV 21.8 % (11.8-14.6); RED BLOOD COUNT 4.97 M/uL (3.80-5.20); SODIUM 138 mEq/L (136-147); WHITE BLOOD COUNT 16.1 K/uL (4.1-10.2)
[2017-04-26 21:51] LABS: GLUCOSE 216 mg/dL (70-99)
[2017-04-26 21:53] LABS: ANION GAP 12 MEQ/L (2-14)
[2017-04-26 21:55] LABS: GFR ESTIMATE (CALCULATED) 58 mL/min/
[2017-04-26 21:56] LABS: UREA NITROGEN (BUN) 14 mg/dL (9-23)
[2017-04-26 22:00] LABS: BACTERIA NONE SEEN /HPF; EPITHELIAL CELLS RARE /HPF; MUCUS TRACE /LPF; RED BLOOD CELLS 0-5 /HPF (0-5); UCUL ADDED? NO; WHITE BLOOD CELLS 0-5 /HPF (0-5)
[2017-04-26] MEDS ORDERED: TEMOVATE 0.05%30 GM TP (22:29)
[2017-04-27 00:17] VITALS: BP 134/66
[2017-04-27 02:50] LABS: METH RESISTANT S AUREUS PCR POSITIVE (NEGATIVE)
[2017-04-27 03:03] LABS: PROBE CHECK PASS
[2017-04-27 04:34] LABS: CHLORIDE 106 mEq/L (99-109); POTASSIUM 3.8 mEq/L (3.7-5.4); SODIUM 138 mEq/L (136-147)
[2017-04-27 04:37] LABS: GLUCOSE 139 mg/dL (70-99)
[2017-04-27 04:38] LABS: ANION GAP 10 MEQ/L (2-14); TOTAL BILIRUBIN 0.2 mg/dL (0.0-1.0)
[2017-04-27 04:40] LABS: ALKALINE PHOSPHATASE 83 IU/L (3-129); GFR ESTIMATE (CALCULATED) > 59 mL/min/
[2017-04-27 04:41] LABS: UREA NITROGEN (BUN) 15 mg/dL (9-23)
[2017-04-27 05:05] LABS: HEMATOCRIT 29.3 % (36.0-46.0); MCH 18.3 PG (29.0-34.0); MCHC 28.3 G/DL (30.0-36.0); MCV 64.7 FL (83-99); MEAN PLAT.VOLUME 9.3 uM^3 (9.5-12.4); PLATELET COUNT 457 K/uL (156-360); RBC DIS.WIDTH-CV 21.3 % (11.8-14.6); RBC DIS.WIDTH-SD 48.8 % (39-53); RED BLOOD COUNT 4.53 M/uL (3.80-5.20)
[2017-04-27 06:07] LABS: POINT-OF-CARE METER ID UU13113725
[2017-04-27 07:44] VITALS: BP 132/60
[2017-04-27 15:48] VITALS: BP 133/70
[2017-04-27 22:00] VITALS: BP 141/71
[2017-04-28 06:11] LABS: EOSINOPHIL (%) 1.1 % (0-5); EOSINOPHIL COUNT 0.2 K/uL (0-0.3); HEMATOCRIT 29.4 % (36.0-46.0); IMMATURE GRANULOCYTE (%) 0.4 % (0.0-0.7); IMMATURE GRANULOCYTE COUNT 0.1 K/uL; INSTRUMENT ABS NEUTROPHIL CT 10.5 K/uL; LYMPHOCYTE COUNT 4.5 K/uL (1.0-2.8); MCH 18.8 PG (29.0-34.0); MCHC 28.9 G/DL (30.0-36.0); MCV 64.9 FL (83-99); MEAN PLAT.VOLUME 8.9 uM^3 (9.5-12.4); MONOCYTE (%) 5.4 % (3-12); MONOCYTE COUNT 0.9 K/uL (0-0.8); NEUTROPHIL (%) 65.1 % (45-76); NEUTROPHIL COUNT 10.5 K/uL (1.8-6.4); PLATELET COUNT 461 K/uL (156-360); RBC DIS.WIDTH-CV 21.6 % (11.8-14.6); RBC DIS.WIDTH-SD 48.1 % (39-53); RED BLOOD COUNT 4.53 M/uL (3.80-5.20); WHITE BLOOD COUNT 16.2 K/uL (4.1-10.2)
[2017-04-28 06:25] LABS: ANION GAP 13 MEQ/L (2-14); CHLORIDE 105 MEQ/L (99-109); GFR ESTIMATE (CALCULATED) > 59 mL/min/; GLUCOSE 114 mg/dL (70-99); MAGNESIUM 1.9 mg/dl (1.3-2.7); SAMPLE HEMOLYSIS CHECK 0; SAMPLE ICTERIC CHECK 0; SAMPLE LIPEMIA CHECK 0; SODIUM 140 MEQ/L (136-147); UREA NITROGEN (BUN) 12 mg/dL (9-23)
[2017-04-28 07:29] VITALS: BP 159/78
[2017-04-28 10:58] VITALS: BP 151/70
[2017-04-28 15:56] VITALS: BP 145/81
[2017-04-28 22:57] VITALS: BP 133/91
[2017-04-29 07:09] VITALS: BP 176/91
[2017-04-29 07:11] LABS: EOSINOPHIL (%) 0.9 % (0-5); EOSINOPHIL COUNT 0.2 K/uL (0-0.3); HEMATOCRIT 31.1 % (36.0-46.0); IMMATURE GRANULOCYTE (%) 0.7 % (0.0-0.7); IMMATURE GRANULOCYTE COUNT 0.1 K/uL; LYMPHOCYTE COUNT 5.2 K/uL (1.0-2.8); MCH 18.6 PG (29.0-34.0); MCV 66.3 FL (83-99); MEAN PLAT.VOLUME 8.8 uM^3 (9.5-12.4); MONOCYTE (%) 5.7 % (3-12); PLATELET COUNT 468 K/uL (156-360); RBC DIS.WIDTH-CV 22.3 % (11.8-14.6); RBC DIS.WIDTH-SD 50.3 % (39-53); RED BLOOD COUNT 4.69 M/uL (3.80-5.20); WHITE BLOOD COUNT 17.4 K/uL (4.1-10.2)
[2017-04-29 07:24] LABS: ANION GAP 13 MEQ/L (2-14); CHLORIDE 107 MEQ/L (99-109); GFR ESTIMATE (CALCULATED) > 59 mL/min/; GLUCOSE 133 mg/dL (70-99); POTASSIUM 4.1 MEQ/L (3.7-5.4); SAMPLE HEMOLYSIS CHECK 0; SAMPLE ICTERIC CHECK 0; SAMPLE LIPEMIA CHECK 0; SODIUM 141 MEQ/L (136-147); UREA NITROGEN (BUN) 12 mg/dL (9-23)
[2017-04-29 16:20] VITALS: BP 189/87
[2017-04-29 21:09] LABS: POINT-OF-CARE METER ID UU13113725
[2017-04-29 23:15] VITALS: BP 129/76
[2017-04-30 05:47] LABS: POINT-OF-CARE METER ID UU13113725
[2017-04-30 07:35] VITALS: BP 144/67
[2017-04-30] MEDS ORDERED: OXYCODONE-APAP1 EACH PO (14:54)
[2017-04-30 16:27] VITALS: BP 142/76
== END 2017-04-30 17:32 | disposition home health service (06) | DRG 603 ==
LOC: EME 19:37 → EDOF 23:33 → 5EAST 23:33 → ENRESERV 23:39 → 5EAST 04-27 00:13
PROVIDERS: Emergency Medicine; Internal Medicine
DX: L03.115 Cellulitis of right lower limb (principal); E87.2 Acidosis; E11.622 Type 2 diabetes mellitus with other skin ulcer; K31.84 Gastroparesis; E11.65 Type 2 diabetes mellitus with hyperglycemia; E11.43 Type 2 diabetes mellitus with diabetic autonomic (poly)neuropathy; Z68.43 Body mass index [BMI] 50.0-59.9, adult; K76.0 Fatty (change of) liver, not elsewhere classified; E66.01 Morbid (severe) obesity due to excess calories; L03.116 Cellulitis of left lower limb; L88 Pyoderma gangrenosum; D64.9 Anemia, unspecified; G43.909 Migraine, unspecified, not intractable, without status migrainosus; E78.5 Hyperlipidemia, unspecified; F41.9 Anxiety disorder, unspecified; G25.81 Restless legs syndrome; G47.33 Obstructive sleep apnea (adult) (pediatric); G89.4 Chronic pain syndrome; J45.909 Unspecified asthma, uncomplicated; K21.9 Gastro-esophageal reflux disease without esophagitis; K59.03 Drug induced constipation; T40.2X5A Adverse effect of other opioids, initial encounter; L02.419 Cutaneous abscess of limb, unspecified; M46.96 Unspecified inflammatory spondylopathy, lumbar region; M79.7 Fibromyalgia; T38.0X5A Adverse effect of glucocorticoids and synthetic analogues, initial encounter; Z79.84 Long term (current) use of oral hypoglycemic drugs; Z79.899 Other long term (current) drug therapy; Z81.8 Family history of other mental and behavioral disorders; Z83.3 Family history of diabetes mellitus; Z87.11 Personal history of peptic ulcer disease; Z98.1 Arthrodesis status; M19.90 Unspecified osteoarthritis, unspecified site; B95.62 Methicillin resistant Staphylococcus aureus infection as the cause of diseases classified elsewhere; N39.3 Stress incontinence (female) (male); M54.9 Dorsalgia, unspecified; D72.829 Elevated white blood cell count, unspecified; L98.499 Non-pressure chronic ulcer of skin of other sites with unspecified severity; F43.21 Adjustment disorder with depressed mood
CPT/HCPCS: 80048; 80053; 80202; 81003; 82948; 83605; 83735; 84100; 85025; 85027; 87040; 87086; 87641; 94640; 94640 76; 99202; 99281; 99285; J1200; J1644; J1815; J2270; J2405; J2543; J3370; J7030; J7050; J7512

== ENCOUNTER 2017-05-06 04:07 | Emergency (ER) | payer OTHER ==
[~2017-05-06] VITALS: Ht 165.1 cm; Wt 152.2 kg
[~2017-05-06 04:07] MED LIST changes: +TEMOVATE 0.05%30 GM TP
[2017-05-06 05:37] LABS: CHLORIDE 107 mEq/L (99-109); POTASSIUM 3.7 mEq/L (3.7-5.4); SODIUM 139 mEq/L (136-147)
[2017-05-06 05:39] LABS: GLUCOSE 190 mg/dL (70-99)
[2017-05-06 05:40] LABS: ANION GAP 10 MEQ/L (2-14)
[2017-05-06 05:43] LABS: GFR ESTIMATE (CALCULATED) > 59 mL/min/
[2017-05-06 05:44] LABS: UREA NITROGEN (BUN) 8 mg/dL (9-23)
[2017-05-06 05:55] LABS: EOSINOPHIL (%) 0.9 % (0-5); EOSINOPHIL COUNT 0.1 K/uL (0-0.3); HEMATOCRIT 30.7 % (36.0-46.0); IMMATURE GRANULOCYTE (%) 0.5 % (0.0-0.7); IMMATURE GRANULOCYTE COUNT 0.1 K/uL; INSTRUMENT ABS NEUTROPHIL CT 10.9 K/uL; LYMPHOCYTE COUNT 3.3 K/uL (1.0-2.8); MCH 18.3 PG (29.0-34.0); MCV 65.2 FL (83-99); MONOCYTE (%) 5.5 % (3-12); MONOCYTE COUNT 0.8 K/uL (0-0.8); NEUTROPHIL (%) 71.7 % (45-76); NEUTROPHIL COUNT 10.9 K/uL (1.8-6.4); RBC DIS.WIDTH-CV 21.5 % (11.8-14.6); RBC DIS.WIDTH-SD 48.5 % (39-53); RED BLOOD COUNT 4.71 M/uL (3.80-5.20); WHITE BLOOD COUNT 15.3 K/uL (4.1-10.2)
[2017-05-06 06:34] LABS: MEAN PLAT.VOLUME 9.3 uM^3 (9.5-12.4); PLAT.SUFFICIENCY ADEQUATE
[2017-05-06 07:00] VITALS: BP 142/79
[2017-05-06 07:09] LABS: PLATELET COUNT 324 K/uL (156-360)
== END 2017-05-06 07:02 | disposition home or self-care (01) ==
LOC: EME 04:07
PROVIDERS: Emergency Medicine
DX: L88 Pyoderma gangrenosum (principal); M79.605 Pain in left leg; M79.604 Pain in right leg; I50.9 Heart failure, unspecified; F31.9 Bipolar disorder, unspecified; M79.7 Fibromyalgia; G89.29 Other chronic pain; E11.9 Type 2 diabetes mellitus without complications; Z79.84 Long term (current) use of oral hypoglycemic drugs
CPT/HCPCS: 80048; 85025; 99281; 99284; J2060; J2270

== ENCOUNTER 2017-05-08 22:44 | Emergency (ER) | payer OTHER ==
[~2017-05-08] VITALS: Ht 165.1 cm; Wt 152.2 kg
[2017-05-09 00:24] VITALS: BP 158/88
== END 2017-05-09 00:26 | disposition home or self-care (01) ==
LOC: EME 22:44
DX: G89.29 Other chronic pain (principal); M79.661 Pain in right lower leg; M79.662 Pain in left lower leg; R60.0 Localized edema; S81.802D Unspecified open wound, left lower leg, subsequent encounter; S81.801D Unspecified open wound, right lower leg, subsequent encounter; X58.XXXD Exposure to other specified factors, subsequent encounter; J44.9 Chronic obstructive pulmonary disease, unspecified; E11.9 Type 2 diabetes mellitus without complications; Z79.84 Long term (current) use of oral hypoglycemic drugs; Z79.52 Long term (current) use of systemic steroids; Z86.14 Personal history of Methicillin resistant Staphylococcus aureus infection
CPT/HCPCS: 99281; 99283; J3010

== ENCOUNTER 2017-05-10 11:09 | Emergency (ER) | payer OTHER ==
[~2017-05-10] VITALS: Ht 165.1 cm; Wt 149.0 kg
[2017-05-10 12:48] LABS: EOSINOPHIL (%) 1.7 % (0-5); EOSINOPHIL COUNT 0.2 K/uL (0-0.3); HEMATOCRIT 30.2 % (36.0-46.0); IMMATURE GRANULOCYTE (%) 0.4 % (0.0-0.7); INSTRUMENT ABS NEUTROPHIL CT 7.5 K/uL; MCH 18.1 PG (29.0-34.0); MCHC 27.5 G/DL (30.0-36.0); MCV 65.9 FL (83-99); MEAN PLAT.VOLUME 9.1 uM^3 (9.5-12.4); MONOCYTE (%) 5.5 % (3-12); MONOCYTE COUNT 0.6 K/uL (0-0.8); NEUTROPHIL COUNT 7.5 K/uL (1.8-6.4); PLATELET COUNT 370 K/uL (156-360); RBC DIS.WIDTH-CV 21.4 % (11.8-14.6); RBC DIS.WIDTH-SD 49.2 % (39-53); RED BLOOD COUNT 4.58 M/uL (3.80-5.20); WHITE BLOOD COUNT 11.3 K/uL (4.1-10.2)
[2017-05-10 12:50] LABS: CHLORIDE 108 mEq/L (99-109); POTASSIUM 3.9 mEq/L (3.7-5.4); SODIUM 139 mEq/L (136-147)
[2017-05-10 12:52] LABS: GLUCOSE 136 mg/dL (70-99)
[2017-05-10 12:53] LABS: ANION GAP 9 MEQ/L (2-14)
[2017-05-10 12:56] LABS: GFR ESTIMATE (CALCULATED) > 59 mL/min/; UREA NITROGEN (BUN) 11 mg/dL (9-23)
[2017-05-10 13:05] LABS: ADD MIUA? YES; BILIRUBIN NEGATIVE; BLOOD NEGATIVE; COLOR YELLOW ((YELLOW)); GLUCOSE (STRIP) NEGATIVE; KETONES NEGATIVE; LEUKOCYTES SMALL; NITRITE NEGATIVE; PROTEIN (STRIP) NEGATIVE; SPECIFIC GRAVITY 1.014 (1.000-1.030); UROBILINOGEN 0.2 MG/DL (0.2-1.0)
[2017-05-10 13:06] LABS: QUANTITATIVE HCG < 4.0 MIU/ML
[2017-05-10 13:13] LABS: BACTERIA NONE SEEN /HPF; EPITHELIAL CELLS RARE /HPF; HYALINE CASTS 0-5 /LPF; MUCUS TRACE /LPF; RED BLOOD CELLS 0-5 /HPF (0-5); WHITE BLOOD CELLS 15-20 /HPF (0-5)
[2017-05-10 14:09] VITALS: BP 120/66
== END 2017-05-10 14:13 | disposition home or self-care (01) ==
LOC: EME 11:09
PROVIDERS: Physician Assistant Medical
DX: R42 Dizziness and giddiness (principal); F19.20 Other psychoactive substance dependence, uncomplicated; F31.9 Bipolar disorder, unspecified; M79.7 Fibromyalgia; R56.9 Unspecified convulsions; Z86.14 Personal history of Methicillin resistant Staphylococcus aureus infection; Z91.040 Latex allergy status; Z88.8 Allergy status to other drugs, medicaments and biological substances
CPT/HCPCS: 80048; 81003; 84702; 85025; 93005; 99281; 99284; J2405

== ENCOUNTER 2017-05-12 03:54 | Emergency (ER) | payer OTHER ==
[~2017-05-12] VITALS: Ht 165.1 cm; Wt 152.2 kg
[2017-05-12 06:25] VITALS: BP 94/52
[2017-05-13] MEDS ORDERED: LEVAQUIN500 MG PO (05:19)
== END 2017-05-12 06:29 | disposition home or self-care (01) ==
LOC: EME 03:54
DX: G89.29 Other chronic pain (principal); M79.604 Pain in right leg; M79.605 Pain in left leg; S81.802D Unspecified open wound, left lower leg, subsequent encounter; S81.801D Unspecified open wound, right lower leg, subsequent encounter; X58.XXXD Exposure to other specified factors, subsequent encounter; E11.9 Type 2 diabetes mellitus without complications; Z79.84 Long term (current) use of oral hypoglycemic drugs; Z79.891 Long term (current) use of opiate analgesic; Z79.52 Long term (current) use of systemic steroids
CPT/HCPCS: 99281; 99283

== ENCOUNTER 2017-05-13 00:18 | Emergency (ER) | payer OTHER ==
[~2017-05-13] VITALS: Ht 165.1 cm; Wt 154.5 kg
[2017-05-13 02:00] LABS: EOSINOPHIL (%) 1.4 % (0-5); EOSINOPHIL COUNT 0.2 K/uL (0-0.3); HEMATOCRIT 30.1 % (36.0-46.0); IMMATURE GRANULOCYTE (%) 0.4 % (0.0-0.7); IMMATURE GRANULOCYTE COUNT 0.1 K/uL; INSTRUMENT ABS NEUTROPHIL CT 7.7 K/uL; LYMPHOCYTE COUNT 4.7 K/uL (1.0-2.8); MCH 18.2 PG (29.0-34.0); MCHC 27.9 G/DL (30.0-36.0); MCV 65.3 FL (83-99); MONOCYTE (%) 6.9 % (3-12); NEUTROPHIL (%) 56.5 % (45-76); NEUTROPHIL COUNT 7.7 K/uL (1.8-6.4); RBC DIS.WIDTH-CV 21.3 % (11.8-14.6); RBC DIS.WIDTH-SD 48.4 % (39-53); RED BLOOD COUNT 4.61 M/uL (3.80-5.20); WHITE BLOOD COUNT 13.7 K/uL (4.1-10.2)
[2017-05-13 02:11] LABS: HEMATOLOGY COMMENT 1 SMEAR COMPATIBLE; MEAN PLAT.VOLUME 8.8 uM^3 (9.5-12.4); PLATELET COUNT 481 K/uL (156-360)
[2017-05-13 02:12] LABS: CHLORIDE 108 mEq/L (99-109); POTASSIUM 3.5 mEq/L (3.7-5.4); SODIUM 142 mEq/L (136-147)
[2017-05-13 02:13] LABS: GLUCOSE 167 mg/dL (70-99)
[2017-05-13 02:15] LABS: ANION GAP 12 MEQ/L (2-14)
[2017-05-13 02:15] LABS: TROP-I INTERPRETATION NEGATIVE; TROPONIN-I < 0.01 ng/mL (0.0-0.30)
[2017-05-13 02:17] LABS: GFR ESTIMATE (CALCULATED) > 59 mL/min/
[2017-05-13 02:18] LABS: UREA NITROGEN (BUN) 9 mg/dL (9-23)
[2017-05-13 04:34] LABS: TROP-I INTERPRETATION NEGATIVE; TROPONIN-I < 0.01 ng/mL (0.0-0.30)
[2017-05-13] MEDS ORDERED: LEVAQUIN500 MG PO (05:19)
[2017-05-13 07:02] VITALS: BP 155/78
== END 2017-05-13 07:03 | disposition home or self-care (01) ==
LOC: EME → EDBD 00:18 → EME 00:18
PROVIDERS: Emergency Medicine
DX: R07.9 Chest pain, unspecified (principal); G89.29 Other chronic pain; L88 Pyoderma gangrenosum; Z88.6 Allergy status to analgesic agent; Z91.040 Latex allergy status
CPT/HCPCS: 71020; 80048; 84484; 85025; 93005; J0595; J2060; J2270

== ENCOUNTER 2017-05-15 19:40 | Emergency (ER) | payer OTHER ==
[~2017-05-15] VITALS: Ht 165.1 cm; Wt 154.0 kg
[2017-05-15 23:14] VITALS: BP 140/81
== END 2017-05-15 23:16 | disposition home or self-care (01) ==
LOC: EME 19:40
DX: G89.29 Other chronic pain (principal); Z79.891 Long term (current) use of opiate analgesic; I73.9 Peripheral vascular disease, unspecified; F17.200 Nicotine dependence, unspecified, uncomplicated
CPT/HCPCS: 85027; 99281; 99284; J1885

== ENCOUNTER 2017-05-18 18:50 | Emergency (ER) | payer OTHER ==
[~2017-05-18] VITALS: Ht 165.1 cm; Wt 154.0 kg
[2017-05-18 21:53] VITALS: BP 138/87
[2017-05-19] MEDS ORDERED: CYMBALTA60 MG PO (20:52)
[2017-05-19] MEDS ORDERED: CYMBALTA30 MG PO (20:53)
[2017-05-19] MEDS ORDERED: DELTASONE20 M1 PO (21:00)
[2017-05-19] MEDS ORDERED: ATARAX,VISTARIL50 MG PO (21:44)
== END 2017-05-18 21:54 | disposition home or self-care (01) ==
LOC: EME 18:50
DX: G89.29 Other chronic pain (principal); M79.604 Pain in right leg; M79.605 Pain in left leg; I87.8 Other specified disorders of veins; M79.7 Fibromyalgia; R56.9 Unspecified convulsions; Z88.1 Allergy status to other antibiotic agents; Z88.2 Allergy status to sulfonamides; Z91.040 Latex allergy status
CPT/HCPCS: 99281; 99284; J3010

== ENCOUNTER 2017-05-19 15:58 | Inpatient (IN) | payer OTHER ==
[~2017-05-19] VITALS: Ht 165.1 cm; Wt 154.0 kg
[2017-05-19 20:49] VITALS: BP 170/93
[2017-05-19] MEDS ORDERED: CYMBALTA60 MG PO (20:52)
[2017-05-19] MEDS ORDERED: CYMBALTA30 MG PO (20:53)
[2017-05-19] MEDS ORDERED: DELTASONE20 M1 PO (21:00)
[2017-05-19 21:07] VITALS: BP 170/93
[2017-05-19] MEDS ORDERED: ATARAX,VISTARIL50 MG PO (21:44)
[2017-05-20 06:19] LABS: POINT-OF-CARE METER ID UU14188576
[2017-05-20 07:42] VITALS: BP 192/98
[2017-05-20 10:09] LABS: Estimated Average Glucose 203 mg/dL (70-123); HEMOGLOBIN A1c (GLYCOHEMOGLOB) 8.7 % HGB (Below 5.7)
[2017-05-20 12:33] LABS: POINT-OF-CARE METER ID UU14188576; POINT-OF-CARE USER ID BHSTSA
[2017-05-20 16:00] VITALS: BP 167/87
[2017-05-20 17:05] LABS: POINT-OF-CARE METER ID UU14188576
[2017-05-20 21:36] LABS: POINT-OF-CARE METER ID UU14188576
[2017-05-21 06:14] LABS: POINT-OF-CARE METER ID UU14188576; POINT-OF-CARE USER ID BHSSMG
[2017-05-21 07:45] VITALS: BP 148/90
[2017-05-21 15:32] VITALS: BP 145/91
[2017-05-21 16:47] LABS: POINT-OF-CARE METER ID UU14188576; POINT-OF-CARE USER ID BHSMEW
[2017-05-22 06:16] LABS: POINT-OF-CARE METER ID UU14188576; POINT-OF-CARE USER ID ENVTLS63
[2017-05-22 07:40] VITALS: BP 159/82
[2017-05-22 11:44] LABS: POINT-OF-CARE METER ID UU14188576
[2017-05-22] MEDS ORDERED: FLUOXETINE HCL10 MG PO (13:08)
[2017-05-22] MEDS ORDERED: CLONAZEPAM0.5 MG PO ×2 (13:08→13:10)
== END 2017-05-22 13:53 | disposition home or self-care (01) | DRG 880 ==
LOC: EME 15:58 → 1WEST 18:47 → EDOF 18:47 → 1WEST 18:47 → ENRESERV 20:40 → 1WEST 20:41
PROVIDERS: Psychiatry & Neurology Psychiatry
DX: F41.8 Other specified anxiety disorders (principal); R45.851 Suicidal ideations; F60.3 Borderline personality disorder; R44.0 Auditory hallucinations; E11.43 Type 2 diabetes mellitus with diabetic autonomic (poly)neuropathy; K31.84 Gastroparesis; E66.01 Morbid (severe) obesity due to excess calories; Z68.43 Body mass index [BMI] 50.0-59.9, adult; G47.33 Obstructive sleep apnea (adult) (pediatric); L88 Pyoderma gangrenosum; M79.7 Fibromyalgia; I50.9 Heart failure, unspecified; E78.5 Hyperlipidemia, unspecified; J45.909 Unspecified asthma, uncomplicated; K21.9 Gastro-esophageal reflux disease without esophagitis; N39.3 Stress incontinence (female) (male); N83.209 Unspecified ovarian cyst, unspecified side; G43.909 Migraine, unspecified, not intractable, without status migrainosus; G89.29 Other chronic pain; M54.9 Dorsalgia, unspecified; Z81.8 Family history of other mental and behavioral disorders; Z87.11 Personal history of peptic ulcer disease; Z98.1 Arthrodesis status; Z86.14 Personal history of Methicillin resistant Staphylococcus aureus infection
CPT/HCPCS: 82607; 82746; 82948; 83036; 90839; 94640; 94640 76; 97150 GO; 97166 GO; 99202; 99281; 99284; J1815; J7512; Q0177

== ENCOUNTER 2017-05-25 00:56 | Emergency (ER) | payer OTHER ==
[~2017-05-25] VITALS: Ht 165.1 cm; Wt 154.5 kg
[~2017-05-25 00:56] MED LIST changes: +CYMBALTA30 MG PO; +FLUOXETINE HCL10 MG PO
[2017-05-25 03:44] VITALS: BP 166/77
== END 2017-05-25 03:44 | disposition home or self-care (01) ==
LOC: EME 00:56
DX: G89.29 Other chronic pain (principal); M79.604 Pain in right leg; M79.605 Pain in left leg; R00.0 Tachycardia, unspecified; L88 Pyoderma gangrenosum; I50.9 Heart failure, unspecified; M79.7 Fibromyalgia; G47.33 Obstructive sleep apnea (adult) (pediatric); E11.9 Type 2 diabetes mellitus without complications; Z79.84 Long term (current) use of oral hypoglycemic drugs; Z86.14 Personal history of Methicillin resistant Staphylococcus aureus infection
CPT/HCPCS: 99281; 99283

== ENCOUNTER 2017-05-29 05:51 | Emergency (ER) | payer OTHER ==
[~2017-05-29] VITALS: Ht 165.1 cm; Wt 154.0 kg
[2017-05-29 08:00] VITALS: BP 155/93
== END 2017-05-29 08:02 | disposition home or self-care (01) ==
LOC: EME 05:51
DX: G89.29 Other chronic pain (principal); M79.661 Pain in right lower leg; M79.662 Pain in left lower leg; L88 Pyoderma gangrenosum; Z88.6 Allergy status to analgesic agent; Z88.2 Allergy status to sulfonamides
CPT/HCPCS: 99281; 99283

== ENCOUNTER 2017-05-30 00:23 | Emergency (ER) | payer OTHER ==
[~2017-05-30] VITALS: Ht 165.1 cm; Wt 154.5 kg
[2017-05-30 02:29] VITALS: BP 162/104
== END 2017-05-30 02:29 | disposition home or self-care (01) ==
LOC: EME 00:23
DX: M79.604 Pain in right leg (principal); M79.605 Pain in left leg
CPT/HCPCS: 99281; 99283; J2270

== ENCOUNTER 2017-05-31 06:35 | Emergency (ER) | payer OTHER ==
[~2017-05-31] VITALS: Ht 165.1 cm; Wt 154.5 kg
[2017-05-31 07:46] VITALS: BP 151/81
== END 2017-05-31 07:46 | disposition home or self-care (01) ==
LOC: EME 06:35
DX: M79.605 Pain in left leg (principal); M79.604 Pain in right leg; L88 Pyoderma gangrenosum; M79.7 Fibromyalgia; R56.9 Unspecified convulsions; Z86.14 Personal history of Methicillin resistant Staphylococcus aureus infection; F17.200 Nicotine dependence, unspecified, uncomplicated
CPT/HCPCS: 99281; 99284; J3010

== ENCOUNTER 2017-06-01 04:28 | Emergency (ER) | payer OTHER ==
[~2017-06-01] VITALS: Ht 165.1 cm; Wt 154.5 kg
[2017-06-01 04:31] VITALS: BP 148/89
== END 2017-06-01 06:56 | disposition home or self-care (01) ==
LOC: EME 04:28
DX: G89.29 Other chronic pain (principal); M79.605 Pain in left leg; M79.604 Pain in right leg; E78.5 Hyperlipidemia, unspecified; E11.9 Type 2 diabetes mellitus without complications; Z79.84 Long term (current) use of oral hypoglycemic drugs; J45.909 Unspecified asthma, uncomplicated; K21.9 Gastro-esophageal reflux disease without esophagitis; Z87.19 Personal history of other diseases of the digestive system; Z88.6 Allergy status to analgesic agent; Z88.1 Allergy status to other antibiotic agents; Z88.2 Allergy status to sulfonamides
CPT/HCPCS: 99281; 99283; J2270

== ENCOUNTER 2017-06-04 01:27 | Emergency (ER) | payer OTHER ==
[~2017-06-04] VITALS: Ht 165.1 cm; Wt 159.2 kg
[2017-06-04 01:38] VITALS: BP 122/72
== END 2017-06-04 03:19 | disposition home or self-care (01) ==
LOC: EXP 01:27 → EME 01:27 → EXP 03:19
DX: G89.29 Other chronic pain (principal); M79.604 Pain in right leg; M79.605 Pain in left leg; I87.8 Other specified disorders of veins; Z88.2 Allergy status to sulfonamides; Z88.6 Allergy status to analgesic agent
CPT/HCPCS: 99281; 99282; J1170

== ENCOUNTER 2017-06-08 02:28 | Emergency (ER) | payer OTHER ==
[~2017-06-08] VITALS: Ht 165.1 cm; Wt 159.0 kg
[2017-06-08] MEDS ORDERED: LEVAQUIN750 MG PO (03:52)
[2017-06-08] MEDS ORDERED: CLEOCIN300 MG PO (03:52)
[2017-06-08 04:01] VITALS: BP 152/88
== END 2017-06-08 04:35 | disposition home or self-care (01) ==
LOC: EME 02:28
DX: L03.116 Cellulitis of left lower limb (principal); L03.115 Cellulitis of right lower limb; S81.801A Unspecified open wound, right lower leg, initial encounter; S81.802A Unspecified open wound, left lower leg, initial encounter; E11.9 Type 2 diabetes mellitus without complications; K21.9 Gastro-esophageal reflux disease without esophagitis; J44.9 Chronic obstructive pulmonary disease, unspecified; M79.7 Fibromyalgia; G47.33 Obstructive sleep apnea (adult) (pediatric); G89.29 Other chronic pain; Z79.84 Long term (current) use of oral hypoglycemic drugs
CPT/HCPCS: 87070; 87075; 87077; 87186; 87205; 99281; 99284; J2270

== ENCOUNTER 2017-06-09 21:31 | Emergency (ER) | payer OTHER ==
[~2017-06-09] VITALS: Ht 165.1 cm; Wt 159.1 kg
[2017-06-10 04:22] VITALS: BP 158/88
== END 2017-06-10 04:26 | disposition home or self-care (01) ==
LOC: EME 21:31
DX: M79.604 Pain in right leg (principal); M79.605 Pain in left leg; G89.29 Other chronic pain; L88 Pyoderma gangrenosum
CPT/HCPCS: 99281; 99284; J2270

== ENCOUNTER 2017-06-24 05:34 | Emergency (ER) | payer OTHER ==
[~2017-06-24] VITALS: Ht 165.1 cm; Wt 156.8 kg
[2017-06-24 07:31] VITALS: BP 118/63
== END 2017-06-24 07:38 | disposition home or self-care (01) ==
LOC: EME 05:34
DX: M79.604 Pain in right leg (principal); M79.605 Pain in left leg; L89.899 Pressure ulcer of other site, unspecified stage; I50.9 Heart failure, unspecified; M79.7 Fibromyalgia; Z86.14 Personal history of Methicillin resistant Staphylococcus aureus infection; F31.9 Bipolar disorder, unspecified; Z91.040 Latex allergy status; Z88.8 Allergy status to other drugs, medicaments and biological substances
CPT/HCPCS: 99281; 99284

== ENCOUNTER 2017-07-04 22:20 | Emergency (ER) | payer OTHER ==
[~2017-07-04] VITALS: Ht 165.1 cm; Wt 146.8 kg
[2017-07-04 23:56] VITALS: BP 143/65
== END 2017-07-04 23:50 | disposition home or self-care (01) ==
LOC: EME 22:20
DX: G89.29 Other chronic pain (principal); L97.829 Non-pressure chronic ulcer of other part of left lower leg with unspecified severity; L97.819 Non-pressure chronic ulcer of other part of right lower leg with unspecified severity; Z91.040 Latex allergy status; Z88.8 Allergy status to other drugs, medicaments and biological substances
CPT/HCPCS: 99281; 99284; J2270

== ENCOUNTER 2017-07-06 21:41 | Emergency (ER) | payer OTHER ==
[~2017-07-06] VITALS: Ht 165.1 cm; Wt 147.0 kg
[2017-07-07 00:32] VITALS: BP 146/89
== END 2017-07-07 00:33 | disposition home or self-care (01) ==
LOC: EME 21:41
DX: G89.29 Other chronic pain (principal); L97.819 Non-pressure chronic ulcer of other part of right lower leg with unspecified severity; L97.829 Non-pressure chronic ulcer of other part of left lower leg with unspecified severity; M79.7 Fibromyalgia; I50.9 Heart failure, unspecified; F31.9 Bipolar disorder, unspecified; Z86.14 Personal history of Methicillin resistant Staphylococcus aureus infection; Z91.040 Latex allergy status; Z88.8 Allergy status to other drugs, medicaments and biological substances
CPT/HCPCS: 99281; 99283; J1885

== ENCOUNTER 2017-07-09 02:53 | Emergency (ER) | payer OTHER ==
[~2017-07-09] VITALS: Ht 165.1 cm; Wt 146.8 kg
[2017-07-09 04:00] VITALS: BP 109/57
== END 2017-07-09 04:00 | disposition home or self-care (01) ==
LOC: EME 02:53
DX: M79.89 Other specified soft tissue disorders (principal); G89.29 Other chronic pain; I50.9 Heart failure, unspecified; M79.7 Fibromyalgia; Z86.14 Personal history of Methicillin resistant Staphylococcus aureus infection; Z91.040 Latex allergy status; Z88.8 Allergy status to other drugs, medicaments and biological substances
CPT/HCPCS: 99281; 99284

== ENCOUNTER 2017-08-03 14:05 | Inpatient (IN) | payer OTHER ==
[~2017-08-03] VITALS: Ht 165.1 cm; Wt 147.0 kg
[~2017-08-03 14:05] MED LIST changes: +METHADONE10 MG PO; +MORPHINE SULFAT15 MG PO; +POLYETHYLENE GL17 GM PO; +PREDNISONE5 MG PO; +ROBAXIN500 MG PO
[2017-08-03 16:54] LABS: ADD MIUA? YES; BILIRUBIN NEGATIVE; BLOOD NEGATIVE; COLOR YELLOW ((YELLOW)); GLUCOSE (STRIP) NEGATIVE; KETONES NEGATIVE; LEUKOCYTES MODERATE; NITRITE NEGATIVE; PROTEIN (STRIP) NEGATIVE; SPECIFIC GRAVITY 1.005 (1.000-1.030); UROBILINOGEN 0.2 MG/DL (0.2-1.0)
[2017-08-03 16:57] LABS: INTERNAL CONTROL VALID? YES
[2017-08-03 17:06] LABS: BACTERIA RARE /HPF; EPITHELIAL CELLS 1+ /HPF; MUCUS NONE SEEN /LPF; RED BLOOD CELLS 0-5 /HPF (0-5); UCUL ADDED? YES
[2017-08-03 17:07] LABS: AMPHETAMINE NEGATIVE (500 ng/mL); BARBITURATES NEGATIVE (200 ng/mL); BENZODIAZEPINES NEGATIVE (150 ng/mL); COCAINE NEGATIVE (150 ng/mL); METHADONE PRESUMPTIVE POSITIVE (200 ng/mL); METHAMPHETAMINE NEGATIVE (500 ng/mL); OPIATES (MORPHINE) PRESUMPTIVE POSITIVE (100 ng/mL); OXYCODONE PRESUMPTIVE POSITIVE (100 ng/mL); PHENCYCLIDINE NEGATIVE (25 ng/mL); PROPOXYPHENE NEGATIVE (300 ng/mL); THC CANNABINOIDS NEGATIVE (50 ng/mL); TRICYCLIC ANTIDEPRESSANTS NEGATIVE (300 ng/mL)
[2017-08-03 17:08] LABS: ADD MEDTOX COMMENT Y; INTERNAL CONTROLS VALID? YES
[2017-08-03 17:45] LABS: BASOPHIL COUNT 0.1 K/uL (0-0.1); EOSINOPHIL (%) 1.8 % (0-5); EOSINOPHIL COUNT 0.1 K/uL (0-0.3); HEMATOCRIT 29.4 % (36.0-46.0); IMMATURE GRANULOCYTE (%) 0.3 % (0.0-0.7); INSTRUMENT ABS NEUTROPHIL CT 4.4 K/uL; LYMPHOCYTE COUNT 2.4 K/uL (1.0-2.8); MCH 17.5 PG (29.0-34.0); MCHC 27.2 G/DL (30.0-36.0); MCV 64.2 FL (83-99); MEAN PLAT.VOLUME 8.3 uM^3 (9.5-12.4); MONOCYTE (%) 11.4 % (3-12); MONOCYTE COUNT 0.9 K/uL (0-0.8); NEUTROPHIL (%) 55.3 % (45-76); NEUTROPHIL COUNT 4.4 K/uL (1.8-6.4); PLATELET COUNT 449 K/uL (156-360); RBC DIS.WIDTH-CV 22.1 % (11.8-14.6); RBC DIS.WIDTH-SD 48.3 % (39-53); RED BLOOD COUNT 4.58 M/uL (3.80-5.20); WHITE BLOOD COUNT 7.9 K/uL (4.1-10.2)
[2017-08-03 17:50] LABS: CHLORIDE 102 mEq/L (99-109); POTASSIUM 3.7 mEq/L (3.7-5.4); SODIUM 138 mEq/L (136-147)
[2017-08-03 17:52] LABS: GLUCOSE 87 mg/dL (70-99)
[2017-08-03 17:54] LABS: ANION GAP 10 MEQ/L (2-14); TOTAL BILIRUBIN 0.3 mg/dL (0.0-1.0)
[2017-08-03 17:56] LABS: ALKALINE PHOSPHATASE 49 IU/L (3-129); GFR ESTIMATE (CALCULATED) > 59 mL/min/
[2017-08-03 17:57] LABS: UREA NITROGEN (BUN) 6 mg/dL (9-23)
[2017-08-03] MEDS ORDERED: TIZANIDINE HCL4 MG PO (21:35)
[2017-08-03] MEDS ORDERED: REGLAN10 MG PO (21:35)
[2017-08-03 23:45] VITALS: BP 194/90
[2017-08-04 03:25] LABS: POINT-OF-CARE METER ID UU13113774
[2017-08-04 05:00] VITALS: BP 150/85
[2017-08-04 06:02] LABS: BASOPHIL COUNT 0.1 K/uL (0-0.1); EOSINOPHIL (%) 0.2 % (0-5); HEMATOCRIT 27.9 % (36.0-46.0); IMMATURE GRANULOCYTE (%) 0.3 % (0.0-0.7); INSTRUMENT ABS NEUTROPHIL CT 5.5 K/uL; LYMPHOCYTE COUNT 2.5 K/uL (1.0-2.8); MCH 17.8 PG (29.0-34.0); MCHC 27.6 G/DL (30.0-36.0); MCV 64.4 FL (83-99); MEAN PLAT.VOLUME 8.6 uM^3 (9.5-12.4); NEUTROPHIL (%) 60.9 % (45-76); NEUTROPHIL COUNT 5.5 K/uL (1.8-6.4); PLATELET COUNT 455 K/uL (156-360); RBC DIS.WIDTH-CV 21.9 % (11.8-14.6); RBC DIS.WIDTH-SD 48.3 % (39-53); RED BLOOD COUNT 4.33 M/uL (3.80-5.20); WHITE BLOOD COUNT 9.1 K/uL (4.1-10.2)
[2017-08-04 06:35] LABS: ALKALINE PHOSPHATASE 52 IU/L (3-129); ANION GAP 10 MEQ/L (2-14); CHLORIDE 106 MEQ/L (99-109); GFR ESTIMATE (CALCULATED) > 59 mL/min/; GLUCOSE 92 mg/dL (70-99); POTASSIUM 3.9 MEQ/L (3.7-5.4); SAMPLE HEMOLYSIS CHECK 0; SAMPLE ICTERIC CHECK 0; SAMPLE LIPEMIA CHECK 0; SODIUM 140 MEQ/L (136-147); TOTAL BILIRUBIN 0.5 MG/DL (0.0-1.0); UREA NITROGEN (BUN) 5 mg/dL (9-23)
[2017-08-04 06:44] LABS: POINT-OF-CARE METER ID UU13113774
[2017-08-04 06:50] VITALS: BP 138/71
[2017-08-04 07:58] LABS: FERRITIN 6 NG/ML (10-291)
[2017-08-04 11:36] LABS: POINT-OF-CARE METER ID UU13113725
[2017-08-04 12:05] VITALS: BP 99/56
[2017-08-04 16:40] VITALS: BP 101/52
[2017-08-04 16:51] LABS: POINT-OF-CARE METER ID UU13113725
[2017-08-04 20:03] VITALS: BP 121/58
[2017-08-04 21:17] LABS: POINT-OF-CARE METER ID UU13113774
[2017-08-05 05:46] LABS: POINT-OF-CARE METER ID UU13113725
[2017-08-05 08:23] VITALS: BP 188/90
[2017-08-05 11:56] VITALS: BP 168/64
[2017-08-05 12:13] LABS: POINT-OF-CARE METER ID UU13113774
[2017-08-05 16:05] VITALS: BP 148/68
[2017-08-05 16:09] VITALS: BP 141/67
[2017-08-05 16:29] LABS: POINT-OF-CARE METER ID UU13113725
[2017-08-05 21:28] LABS: POINT-OF-CARE METER ID UU13113725
[2017-08-05 23:51] VITALS: BP 158/71
[2017-08-06 06:06] LABS: POINT-OF-CARE METER ID UU13113725
[2017-08-06 06:14] LABS: HEMATOCRIT 27.4 % (36.0-46.0); MCH 17.6 PG (29.0-34.0); MCV 65.2 FL (83-99); MEAN PLAT.VOLUME 8.5 uM^3 (9.5-12.4); PLATELET COUNT 458 K/uL (156-360); RBC DIS.WIDTH-CV 22.5 % (11.8-14.6); RBC DIS.WIDTH-SD 50.8 % (39-53); WHITE BLOOD COUNT 7.2 K/uL (4.1-10.2)
[2017-08-06 06:36] LABS: ANION GAP 10 MEQ/L (2-14); CHLORIDE 107 MEQ/L (99-109); GFR ESTIMATE (CALCULATED) > 59 mL/min/; GLUCOSE 91 mg/dL (70-99); POTASSIUM 3.6 MEQ/L (3.7-5.4); SAMPLE HEMOLYSIS CHECK 0; SAMPLE ICTERIC CHECK 0; SAMPLE LIPEMIA CHECK 0; SODIUM 142 MEQ/L (136-147); UREA NITROGEN (BUN) 5 mg/dL (9-23)
[2017-08-06 08:22] VITALS: BP 166/94
[2017-08-06 11:31] LABS: POINT-OF-CARE METER ID UU13113725
[2017-08-06 15:31] VITALS: BP 137/67
[2017-08-06 16:37] LABS: POINT-OF-CARE METER ID UU13113725
[2017-08-06 21:26] LABS: POINT-OF-CARE METER ID UU13113774
[2017-08-06 23:53] VITALS: BP 169/79
[2017-08-07 05:39] LABS: POINT-OF-CARE METER ID UU13113774
[2017-08-07 07:30] VITALS: BP 171/82
[2017-08-07 09:27] LABS: HEMATOCRIT 28.3 % (36.0-46.0); MCH 17.4 PG (29.0-34.0); MCHC 26.9 G/DL (30.0-36.0); MCV 64.8 FL (83-99); MEAN PLAT.VOLUME 8.7 uM^3 (9.5-12.4); PLATELET COUNT 476 K/uL (156-360); RBC DIS.WIDTH-CV 22.3 % (11.8-14.6); RBC DIS.WIDTH-SD 50.4 % (39-53); RED BLOOD COUNT 4.37 M/uL (3.80-5.20); WHITE BLOOD COUNT 6.5 K/uL (4.1-10.2)
[2017-08-07] MEDS ORDERED: PREDNISONE10 MG PO (09:50)
[2017-08-07] MEDS ORDERED: MORPHINE SULFAT15 MG PO (09:51)
[2017-08-07] MEDS ORDERED: CEFEPIME-D2 GM/50 ML IV (09:53)
[2017-08-07] MEDS ORDERED: FERROCITE324 MG PO (09:54)
[2017-08-07 12:01] LABS: POINT-OF-CARE METER ID UU13113774
[2017-08-07] MEDS ORDERED: COREG6.25 M1 PO (12:16)
[2017-08-07 12:24] VITALS: BP 135/69
[2017-08-07 12:25] VITALS: BP 135/69
[2017-08-07 16:59] LABS: POINT-OF-CARE METER ID UU13113725
== END 2017-08-07 17:16 | disposition home health service (06) | DRG 872 ==
LOC: EME 14:05 → 5EAST 22:09 → EDOF 22:09 → ENRESERV 22:11 → 5EAST 23:38 → ENPENDDIS 08-07 → 5EAST 08-07 17:16
PROVIDERS: Emergency Medicine; Hospitalist; Internal Medicine
DX: A41.9 Sepsis, unspecified organism (principal); L03.115 Cellulitis of right lower limb; L03.116 Cellulitis of left lower limb; N39.0 Urinary tract infection, site not specified; L88 Pyoderma gangrenosum; E11.43 Type 2 diabetes mellitus with diabetic autonomic (poly)neuropathy; E66.01 Morbid (severe) obesity due to excess calories; G89.29 Other chronic pain; E87.2 Acidosis; E78.5 Hyperlipidemia, unspecified; D64.9 Anemia, unspecified; F41.9 Anxiety disorder, unspecified; F32.9 Major depressive disorder, single episode, unspecified; B96.5 Pseudomonas (aeruginosa) (mallei) (pseudomallei) as the cause of diseases classified elsewhere; B96.20 Unspecified Escherichia coli [E. coli] as the cause of diseases classified elsewhere; K21.9 Gastro-esophageal reflux disease without esophagitis; G47.33 Obstructive sleep apnea (adult) (pediatric); K31.84 Gastroparesis; J45.909 Unspecified asthma, uncomplicated; I87.8 Other specified disorders of veins; Z91.030 Bee allergy status; Z79.52 Long term (current) use of systemic steroids; Z90.49 Acquired absence of other specified parts of digestive tract; Z68.43 Body mass index [BMI] 50.0-59.9, adult
CPT/HCPCS: 71010; 76000; 80048; 80053; 81003; 82607; 82728; 82746; 82948; 83605; 84703; 84999; 85025; 85027; 87040; 87070; 87075; 87077; 87086; 87186; 87205; 94640 76; 99202; 99281; 99285; J0692; J1644; J1815; J2020; J2270; J2405; J2543; J2997; J7030; J7050; J7512

== ENCOUNTER 2017-08-17 11:42 | Emergency (ER) | payer OTHER ==
[~2017-08-17] VITALS: Ht 165.1 cm; Wt 142.8 kg
[~2017-08-17 11:42] MED LIST changes: +CEFEPIME-D2 GM/50 ML IV; +COREG6.25 M1 PO; +FERROCITE324 MG PO
[2017-08-17 13:24] VITALS: BP 128/60
== END 2017-08-17 13:27 | disposition home or self-care (01) ==
LOC: EME 11:42
DX: G89.29 Other chronic pain (principal); M79.604 Pain in right leg; M79.605 Pain in left leg; L97.929 Non-pressure chronic ulcer of unspecified part of left lower leg with unspecified severity; L97.919 Non-pressure chronic ulcer of unspecified part of right lower leg with unspecified severity; M79.7 Fibromyalgia; I50.9 Heart failure, unspecified; E66.01 Morbid (severe) obesity due to excess calories; R56.9 Unspecified convulsions; F31.9 Bipolar disorder, unspecified; G47.33 Obstructive sleep apnea (adult) (pediatric); Z88.2 Allergy status to sulfonamides; Z88.5 Allergy status to narcotic agent; Z88.1 Allergy status to other antibiotic agents; Z91.040 Latex allergy status
CPT/HCPCS: 99281; 99284

== ENCOUNTER 2017-08-19 01:35 | Emergency (ER) | payer OTHER ==
[~2017-08-19] VITALS: Ht 165.1 cm; Wt 145.5 kg
[2017-08-19 03:27] VITALS: BP 139/53
== END 2017-08-19 03:27 | disposition home or self-care (01) ==
LOC: EME 01:35
DX: G89.29 Other chronic pain (principal); M79.604 Pain in right leg; M79.605 Pain in left leg; L88 Pyoderma gangrenosum; L03.116 Cellulitis of left lower limb; L03.115 Cellulitis of right lower limb; J44.9 Chronic obstructive pulmonary disease, unspecified; E11.9 Type 2 diabetes mellitus without complications; Z79.84 Long term (current) use of oral hypoglycemic drugs; Z86.14 Personal history of Methicillin resistant Staphylococcus aureus infection; Z88.1 Allergy status to other antibiotic agents; Z88.2 Allergy status to sulfonamides
CPT/HCPCS: 99281; 99284; J2270

== ENCOUNTER 2017-08-19 19:26 | Emergency (ER) | payer OTHER ==
[~2017-08-19] VITALS: Ht 165.1 cm; Wt 142.7 kg
[2017-08-19 21:13] VITALS: BP 124/62
== END 2017-08-19 21:13 | disposition home or self-care (01) ==
LOC: RME 19:26 → EME 19:26 → RME 21:13
DX: G89.29 Other chronic pain (principal); M79.605 Pain in left leg; M79.604 Pain in right leg; I50.9 Heart failure, unspecified; M79.7 Fibromyalgia; E66.01 Morbid (severe) obesity due to excess calories; F31.9 Bipolar disorder, unspecified; R56.9 Unspecified convulsions; G25.81 Restless legs syndrome; G47.33 Obstructive sleep apnea (adult) (pediatric); Z91.040 Latex allergy status; Z88.8 Allergy status to other drugs, medicaments and biological substances; Z88.2 Allergy status to sulfonamides; Z88.5 Allergy status to narcotic agent
CPT/HCPCS: 99281; 99283; J2270

== ENCOUNTER 2017-08-28 13:08 | Inpatient (IN) | payer OTHER ==
[~2017-08-28] VITALS: Ht 165.1 cm; Wt 145.8 kg
[2017-08-28 14:19] LABS: EOSINOPHIL (%) 0.4 % (0-5); EOSINOPHIL COUNT 0.1 K/uL (0-0.3); HEMATOCRIT 29.8 % (36.0-46.0); IMMATURE GRANULOCYTE (%) 0.4 % (0.0-0.7); IMMATURE GRANULOCYTE COUNT 0.1 K/uL; INSTRUMENT ABS NEUTROPHIL CT 10.6 K/uL; LYMPHOCYTE COUNT 1.9 K/uL (1.0-2.8); MCH 17.6 PG (29.0-34.0); MCHC 27.5 G/DL (30.0-36.0); MCV 63.9 FL (83-99); MEAN PLAT.VOLUME 9.3 uM^3 (9.5-12.4); MONOCYTE (%) 6.2 % (3-12); MONOCYTE COUNT 0.8 K/uL (0-0.8); NEUTROPHIL (%) 78.5 % (45-76); NEUTROPHIL COUNT 10.6 K/uL (1.8-6.4); NRBC (%) 0.1 /100 WBC (0-0); PLATELET COUNT 530 K/uL (156-360); RBC DIS.WIDTH-CV 21.7 % (11.8-14.6); RBC DIS.WIDTH-SD 47.5 % (39-53); RED BLOOD COUNT 4.66 M/uL (3.80-5.20); WHITE BLOOD COUNT 13.5 K/uL (4.1-10.2)
[2017-08-28 14:20] LABS: CHLORIDE 104 mEq/L (99-109); POTASSIUM 3.7 mEq/L (3.7-5.4); SODIUM 141 mEq/L (136-147)
[2017-08-28 14:22] LABS: GLUCOSE 149 mg/dL (70-99)
[2017-08-28 14:23] LABS: ANION GAP 15 MEQ/L (2-14)
[2017-08-28 14:26] LABS: GFR ESTIMATE (CALCULATED) 58 mL/min/
[2017-08-28 14:27] LABS: UREA NITROGEN (BUN) 9 mg/dL (9-23)
[2017-08-28 15:15] LABS: ADD MIUA? YES; BILIRUBIN NEGATIVE; BLOOD NEGATIVE; COLOR AMBER ((YELLOW)); GLUCOSE (STRIP) NEGATIVE; KETONES NEGATIVE; LEUKOCYTES SMALL; NITRITE POSITIVE; PROTEIN (STRIP) 30; SPECIFIC GRAVITY 1.015 (1.000-1.030); UROBILINOGEN 0.2 MG/DL (0.2-1.0)
[2017-08-28 15:46] LABS: CASTS NONE SEEN /LPF; EPITHELIAL CELLS 4+ /HPF; MUCUS 1+ /LPF
[2017-08-28 15:47] LABS: BACTERIA 4+ /HPF; RED BLOOD CELLS RARE /HPF (0-5); UCUL ADDED? YES; WHITE BLOOD CELLS TNTC /HPF (0-5)
[2017-08-28] MEDS ORDERED: IMITREX100 MG PO (16:40)
[2017-08-28 17:38] VITALS: BP 118/60
[2017-08-28 18:26] LABS: Estimated Average Glucose 148 mg/dL (70-123)
[2017-08-28 18:35] LABS: HEMOGLOBIN A1c (GLYCOHEMOGLOB) 6.8 % HGB (Below 5.7)
[2017-08-28 19:00] VITALS: BP 115/56
[2017-08-28 21:24] LABS: POINT-OF-CARE METER ID UU13113698
[2017-08-28 22:11] VITALS: BP 132/68
[2017-08-29 00:30] VITALS: BP 116/58
[2017-08-29 06:25] LABS: BASOPHIL COUNT 0.1 K/uL (0-0.1); EOSINOPHIL (%) 0.2 % (0-5); HEMATOCRIT 26.7 % (36.0-46.0); IMMATURE GRANULOCYTE (%) 0.4 % (0.0-0.7); IMMATURE GRANULOCYTE COUNT 0.1 K/uL; INSTRUMENT ABS NEUTROPHIL CT 14.6 K/uL; LYMPHOCYTE COUNT 2.7 K/uL (1.0-2.8); MCH 17.3 PG (29.0-34.0); MCV 64.3 FL (83-99); MEAN PLAT.VOLUME 9.2 uM^3 (9.5-12.4); MONOCYTE (%) 9.1 % (3-12); MONOCYTE COUNT 1.8 K/uL (0-0.8); NEUTROPHIL COUNT 14.6 K/uL (1.8-6.4); NRBC (%) 0.1 /100 WBC (0-0); PLATELET COUNT 420 K/uL (156-360); RBC DIS.WIDTH-CV 21.6 % (11.8-14.6); RBC DIS.WIDTH-SD 48.1 % (39-53); RED BLOOD COUNT 4.15 M/uL (3.80-5.20); WHITE BLOOD COUNT 19.3 K/uL (4.1-10.2)
[2017-08-29 07:15] VITALS: BP 128/58
[2017-08-29 08:25] LABS: POINT-OF-CARE METER ID UU13113781; POINT-OF-CARE USER ID NUTSLF44
[2017-08-29 11:43] VITALS: BP 116/87
[2017-08-29 11:59] LABS: POINT-OF-CARE METER ID UU13113698; POINT-OF-CARE USER ID NUTSLF44
[2017-08-29 16:56] LABS: POINT-OF-CARE METER ID UU13113781; POINT-OF-CARE USER ID NUTSLF44
[2017-08-29 19:33] VITALS: BP 137/64
[2017-08-29 21:46] LABS: POINT-OF-CARE METER ID UU14314088
[2017-08-29 23:07] VITALS: BP 139/64
[2017-08-30 06:35] LABS: POINT-OF-CARE METER ID UU14314088
[2017-08-30 07:23] LABS: ANION GAP 7 MEQ/L (2-14); CHLORIDE 109 MEQ/L (99-109); GFR ESTIMATE (CALCULATED) > 59 mL/min/; GLUCOSE 128 mg/dL (70-99); POTASSIUM 3.8 MEQ/L (3.7-5.4); SAMPLE HEMOLYSIS CHECK 0; SAMPLE ICTERIC CHECK 0; SAMPLE LIPEMIA CHECK 0; SODIUM 140 MEQ/L (136-147); UREA NITROGEN (BUN) 8 mg/dL (9-23)
[2017-08-30 07:55] LABS: HEMATOCRIT 25.6 % (36.0-46.0); MCH 17.4 PG (29.0-34.0); MCHC 27.3 G/DL (30.0-36.0); MCV 63.7 FL (83-99); MEAN PLAT.VOLUME 9.1 uM^3 (9.5-12.4); PLATELET COUNT 332 K/uL (156-360); RBC DIS.WIDTH-CV 21.5 % (11.8-14.6); RBC DIS.WIDTH-SD 48.7 % (39-53); RED BLOOD COUNT 4.02 M/uL (3.80-5.20); WHITE BLOOD COUNT 12.2 K/uL (4.1-10.2)
[2017-08-30 08:35] VITALS: BP 128/64
[2017-08-30 12:29] LABS: POINT-OF-CARE METER ID UU13113698
[2017-08-30] MEDS ORDERED: FLUCONAZOLE150 MG PO (14:40)
[2017-08-30] MEDS ORDERED: CEFEPIME HCL2 GM IV (15:01)
[2017-08-30 16:52] LABS: POINT-OF-CARE METER ID UU14174216
[2017-08-30 17:45] VITALS: BP 161/69
[2017-08-30 18:55] VITALS: BP 149/77
[2017-08-30 19:55] VITALS: BP 172/75
== END 2017-08-30 20:20 | disposition home or self-care (01) | DRG 872 ==
LOC: EME 13:08 → EDOF 16:07 → 4EAST 16:07 → ENRESERV 16:15 → 4EAST 17:25
PROVIDERS: Emergency Medicine; Hospitalist
DX: A41.52 Sepsis due to Pseudomonas (principal); E87.2 Acidosis; L88 Pyoderma gangrenosum; L97.821 Non-pressure chronic ulcer of other part of left lower leg limited to breakdown of skin; L97.811 Non-pressure chronic ulcer of other part of right lower leg limited to breakdown of skin; N10 Acute pyelonephritis; Z68.43 Body mass index [BMI] 50.0-59.9, adult; E66.01 Morbid (severe) obesity due to excess calories; B96.5 Pseudomonas (aeruginosa) (mallei) (pseudomallei) as the cause of diseases classified elsewhere; G47.33 Obstructive sleep apnea (adult) (pediatric); M79.7 Fibromyalgia; M54.9 Dorsalgia, unspecified; G43.909 Migraine, unspecified, not intractable, without status migrainosus; F41.9 Anxiety disorder, unspecified; G89.4 Chronic pain syndrome; I50.9 Heart failure, unspecified; J20.9 Acute bronchitis, unspecified; D64.9 Anemia, unspecified; B37.9 Candidiasis, unspecified; I87.8 Other specified disorders of veins; E11.622 Type 2 diabetes mellitus with other skin ulcer; Z87.440 Personal history of urinary (tract) infections; Z86.14 Personal history of Methicillin resistant Staphylococcus aureus infection; Z79.84 Long term (current) use of oral hypoglycemic drugs; Z90.49 Acquired absence of other specified parts of digestive tract; Z88.6 Allergy status to analgesic agent; Z88.2 Allergy status to sulfonamides; Z91.040 Latex allergy status; Z88.5 Allergy status to narcotic agent
CPT/HCPCS: 71010; 80048; 81003; 82948; 83036; 83605; 85025; 85027; 86850; 86900; 86901; 86920; 87040; 87070; 87077; 87086; 87186; 87480; 87502; 87510; 87660; 93005; 94640; 94640 76; 94760; 94799; 99202; 99281; 99285; J0692; J0696; J1644; J1815; J2270; J7030; J7512; P9016; S0028

== ENCOUNTER 2017-10-07 10:41 | Emergency (ER) | payer OTHER ==
[~2017-10-07] VITALS: Ht 165.1 cm; Wt 130.0 kg
[~2017-10-07 10:41] MED LIST changes: +CEFEPIME HCL2 GM IV; +FLUCONAZOLE150 MG PO; +IMITREX100 MG PO
[2017-10-07 10:46] VITALS: BP 137/74
== END 2017-10-07 14:30 | disposition left against medical advice (07) ==
LOC: EME 10:41
DX: M79.604 Pain in right leg (principal); M79.605 Pain in left leg; Z53.21 Procedure and treatment not carried out due to patient leaving prior to being seen by health care provider
CPT/HCPCS: 99281

== ENCOUNTER 2017-10-07 19:58 | Emergency (ER) | payer OTHER ==
[~2017-10-07] VITALS: Ht 165.1 cm; Wt 127.3 kg
[2017-10-07 22:25] VITALS: BP 108/68
== END 2017-10-07 22:26 | disposition home or self-care (01) ==
LOC: EME 19:58
DX: G89.29 Other chronic pain (principal); M79.604 Pain in right leg; M79.605 Pain in left leg; Z79.891 Long term (current) use of opiate analgesic
CPT/HCPCS: 99281; 99285

== ENCOUNTER 2017-10-08 20:39 | Emergency (ER) | payer OTHER ==
[~2017-10-08] VITALS: Ht 165.1 cm; Wt 130.0 kg
[2017-10-09 00:50] LABS: CHLORIDE 104 mEq/L (99-109); POTASSIUM 3.9 mEq/L (3.7-5.4); SODIUM 138 mEq/L (136-147)
[2017-10-09 00:52] LABS: GLUCOSE 112 mg/dL (70-99)
[2017-10-09 00:55] LABS: BASOPHIL (%) 0.5 % (0-1); EOSINOPHIL (%) 0.7 % (0-5); EOSINOPHIL COUNT 0.1 K/uL (0-0.3); HEMATOCRIT 33.5 % (36.0-46.0); HEMOGLOBIN 9.6 G/DL (11.9-15.5); IMMATURE GRANULOCYTE (%) 0.3 % (0.0-0.7); LYMPHOCYTE (%) 23.3 % (15-42); MCH 18.4 PG (29.0-34.0); MCHC 28.7 G/DL (30.0-36.0); MCV 64.1 FL (83-99); MONOCYTE (%) 11.1 % (3-12); NEUTROPHIL (%) 64.1 % (45-76); NEUTROPHIL COUNT 5.6 K/uL (1.8-6.4); PLATELET COUNT 628 K/uL (156-360); RBC DIS.WIDTH-CV 22.9 % (11.8-14.6); RED BLOOD COUNT 5.23 M/uL (3.80-5.20); WHITE BLOOD COUNT 8.7 K/uL (4.1-10.2)
[2017-10-09 00:56] LABS: GFR ESTIMATE (CALCULATED) > 59 mL/min/
[2017-10-09 00:57] LABS: UREA NITROGEN (BUN) 10 mg/dL (9-23)
[2017-10-09 01:04] LABS: QUANTITATIVE HCG < 4.0 MIU/ML
[2017-10-09 01:53] VITALS: BP 149/80
== END 2017-10-09 02:20 | disposition home or self-care (01) ==
LOC: EME 20:39
PROVIDERS: Emergency Medicine
DX: L88 Pyoderma gangrenosum (principal); G89.29 Other chronic pain; M79.604 Pain in right leg; M79.605 Pain in left leg; Z86.14 Personal history of Methicillin resistant Staphylococcus aureus infection; Z79.891 Long term (current) use of opiate analgesic; J44.9 Chronic obstructive pulmonary disease, unspecified; E11.9 Type 2 diabetes mellitus without complications; Z79.84 Long term (current) use of oral hypoglycemic drugs
CPT/HCPCS: 80048; 83605; 84702; 85025; 99281; 99284

== ENCOUNTER 2017-10-11 02:08 | Emergency (ER) | payer OTHER ==
[~2017-10-11] VITALS: Ht 165.1 cm; Wt 130.0 kg
[2017-10-11] MEDS ORDERED: ZOFRAN4 MG PO (03:55)
[2017-10-11 04:04] VITALS: BP 106/64
== END 2017-10-11 04:00 | disposition home or self-care (01) ==
LOC: EME 02:08
DX: R11.2 Nausea with vomiting, unspecified (principal); Z91.040 Latex allergy status; Z88.5 Allergy status to narcotic agent; Z88.2 Allergy status to sulfonamides; Z88.1 Allergy status to other antibiotic agents; Z88.6 Allergy status to analgesic agent; Z88.8 Allergy status to other drugs, medicaments and biological substances

== ENCOUNTER 2017-10-12 23:04 | Emergency (ER) | payer OTHER ==
[~2017-10-12] VITALS: Ht 165.1 cm; Wt 129.5 kg
[2017-10-13 00:04] LABS: APPEARANCE CLOUDY ((CLEAR)); BILIRUBIN NEGATIVE; BLOOD MODERATE; COLOR YELLOW ((YELLOW)); GLUCOSE (STRIP) NEGATIVE; KETONES NEGATIVE; LEUKOCYTES LARGE; NITRITE NEGATIVE; PROTEIN (STRIP) NEGATIVE; UROBILINOGEN 0.2 MG/DL (0.2-1.0)
[2017-10-13 00:31] LABS: EPITHELIAL CELLS 2+ /HPF; RED BLOOD CELLS NONE SEEN /HPF (0-5)
[2017-10-13 00:34] LABS: BACTERIA 3+ /HPF; MUCUS NONE SEEN /LPF; UCUL ADDED? YES
[2017-10-13] MEDS ORDERED: KEFLEX500 MG PO (02:59)
[2017-10-13] MEDS ORDERED: PYRIDIUM100 MG PO (03:01)
[2017-10-13 03:24] VITALS: BP 129/66
== END 2017-10-13 03:25 | disposition home or self-care (01) ==
LOC: EME 23:04
DX: N39.0 Urinary tract infection, site not specified (principal); I50.9 Heart failure, unspecified; M79.7 Fibromyalgia; R56.9 Unspecified convulsions; G89.29 Other chronic pain; Z86.14 Personal history of Methicillin resistant Staphylococcus aureus infection; Z88.5 Allergy status to narcotic agent; Z88.2 Allergy status to sulfonamides; Z88.1 Allergy status to other antibiotic agents; Z91.040 Latex allergy status
CPT/HCPCS: 81003; 87077; 87086; 87186; 99281; 99284

== ENCOUNTER 2017-10-13 07:26 | Emergency (ER) | payer OTHER ==
[~2017-10-13] VITALS: Ht 165.1 cm; Wt 135.0 kg
[~2017-10-13 07:26] MED LIST changes: +PYRIDIUM100 MG PO
[2017-10-13 11:00] VITALS: BP 134/78
== END 2017-10-13 11:52 | disposition home or self-care (01) ==
LOC: EME 07:26
DX: G89.29 Other chronic pain (principal); F11.20 Opioid dependence, uncomplicated; I50.9 Heart failure, unspecified; M79.7 Fibromyalgia; R56.9 Unspecified convulsions; G47.33 Obstructive sleep apnea (adult) (pediatric); Z88.2 Allergy status to sulfonamides; Z88.5 Allergy status to narcotic agent; Z88.1 Allergy status to other antibiotic agents; Z91.040 Latex allergy status
CPT/HCPCS: J2270

== ENCOUNTER 2017-11-10 15:18 | Emergency (ER) | payer OTHER ==
[~2017-11-10] VITALS: Ht 167.6 cm; Wt 125.9 kg
[2017-11-10 16:29] LABS: APPEARANCE SL.HAZY ((CLEAR)); BILIRUBIN NEGATIVE; BLOOD NEGATIVE; COLOR AMBER ((YELLOW)); GLUCOSE (STRIP) NEGATIVE; KETONES NEGATIVE; LEUKOCYTES TRACE; NITRITE NEGATIVE; PROTEIN (STRIP) 30; SPECIFIC GRAVITY 1.027 (1.000-1.030); UROBILINOGEN 0.2 MG/DL (0.2-1.0)
[2017-11-10 16:59] LABS: BACTERIA RARE /HPF; EPITHELIAL CELLS RARE /HPF; HYALINE CASTS 0-5 /LPF; MUCUS TRACE /LPF; RED BLOOD CELLS 0-5 /HPF (0-5); UCUL ADDED? YES
[2017-11-10] MEDS ORDERED: ACYCLOVIR400 MG PO (18:11)
[2017-11-10] MEDS ORDERED: AUGMENTIN875 MG PO (18:11)
[2017-11-10 20:23] VITALS: BP 140/112
== END 2017-11-10 20:25 | disposition home or self-care (01) ==
LOC: EME 15:18
DX: A60.00 Herpesviral infection of urogenital system, unspecified (principal); L03.314 Cellulitis of groin; M79.7 Fibromyalgia; F31.9 Bipolar disorder, unspecified; G43.909 Migraine, unspecified, not intractable, without status migrainosus; R56.9 Unspecified convulsions; G47.33 Obstructive sleep apnea (adult) (pediatric); Z87.440 Personal history of urinary (tract) infections; Z86.14 Personal history of Methicillin resistant Staphylococcus aureus infection; Z90.49 Acquired absence of other specified parts of digestive tract; Z88.5 Allergy status to narcotic agent; Z88.2 Allergy status to sulfonamides; Z88.1 Allergy status to other antibiotic agents; Z88.6 Allergy status to analgesic agent; Z88.8 Allergy status to other drugs, medicaments and biological substances; Z91.040 Latex allergy status
CPT/HCPCS: 81003; 87086; 99281; 99284

== ENCOUNTER 2017-11-16 10:54 | Inpatient (IN) | payer OTHER ==
[~2017-11-16] VITALS: Ht 165.1 cm; Wt 121.5 kg
[~2017-11-16 10:54] MED LIST changes: +ACYCLOVIR400 MG PO
[2017-11-16 12:49] LABS: HEMATOCRIT 34.6 % (36.0-46.0); HEMOGLOBIN 10.9 G/DL (11.9-15.5); MCH 20.7 PG (29.0-34.0); MCHC 31.5 G/DL (30.0-36.0); MCV 65.7 FL (83-99); PLATELET COUNT 692 K/uL (156-360); RBC DIS.WIDTH-CV 23.4 % (11.8-14.6); RBC DIS.WIDTH-SD 52.7 % (39-53); RED BLOOD COUNT 5.27 M/uL (3.80-5.20); WHITE BLOOD COUNT 18.4 K/uL (4.1-10.2)
[2017-11-16 12:54] LABS: CHLORIDE 100 mEq/L (99-109); POTASSIUM 3.7 mEq/L (3.7-5.4); SODIUM 129 mEq/L (136-147)
[2017-11-16 12:55] LABS: GLUCOSE 138 mg/dL (70-99)
[2017-11-16 12:59] LABS: CREATININE 1.8 mg/dL (0.6-1.3); GFR ESTIMATE (CALCULATED) 33 mL/min/
[2017-11-16 13:00] LABS: UREA NITROGEN (BUN) 29 mg/dL (9-23)
[2017-11-16 14:36] LABS: BASOPHIL (%) 0.3 % (0-1); BASOPHIL COUNT 0.1 K/uL (0-0.1); EOSINOPHIL (%) 0.1 % (0-5); HEMATOCRIT 35.7 % (36.0-46.0); HEMOGLOBIN 11.1 G/DL (11.9-15.5); IMMATURE GRANULOCYTE (%) 1.1 % (0.0-0.7); LYMPHOCYTE (%) 10.4 % (15-42); LYMPHOCYTE COUNT 1.9 K/uL (1.0-2.8); MCH 20.3 PG (29.0-34.0); MCHC 31.1 G/DL (30.0-36.0); MCV 65.4 FL (83-99); MONOCYTE (%) 6.7 % (3-12); MONOCYTE COUNT 1.3 K/uL (0-0.8); NEUTROPHIL (%) 81.4 % (45-76); NEUTROPHIL COUNT 15.1 K/uL (1.8-6.4); PLATELET COUNT 714 K/uL (156-360); RBC DIS.WIDTH-CV 23.6 % (11.8-14.6); RBC DIS.WIDTH-SD 52.2 % (39-53); RED BLOOD COUNT 5.46 M/uL (3.80-5.20); WHITE BLOOD COUNT 18.5 K/uL (4.1-10.2)
[2017-11-16 15:33] LABS: APPEARANCE SL.HAZY ((CLEAR)); BILIRUBIN NEGATIVE; BLOOD SMALL; COLOR YELLOW ((YELLOW)); GLUCOSE (STRIP) NEGATIVE; KETONES NEGATIVE; LEUKOCYTES NEGATIVE; NITRITE NEGATIVE; PROTEIN (STRIP) 30; SPECIFIC GRAVITY 1.024 (1.000-1.030); UROBILINOGEN 0.2 MG/DL (0.2-1.0)
[2017-11-16 16:18] LABS: RED BLOOD CELLS NONE SEEN /HPF (0-5)
[2017-11-16 16:19] LABS: EPITHELIAL CELLS 1+ /HPF; MUCUS RARE /LPF; WHITE BLOOD CELLS 0-5 /HPF (0-5)
[2017-11-16 16:20] LABS: BACTERIA 1+ /HPF
[2017-11-16 16:22] LABS: HYALINE CASTS 15-20 /LPF
[2017-11-16] MEDS ORDERED: FLUOXETINE HCL20 M1 PO (16:40)
[2017-11-16] MEDS ORDERED: ZOFRAN4 MG PO (16:46)
[2017-11-16] MEDS ORDERED: TACROLIMUS30 G1 TP (16:58)
[2017-11-16] MEDS ORDERED: BUPROPION HCL75 MG PO (16:58)
[2017-11-16] MEDS ORDERED: OXCARBAZEPINE300 MG PO (16:59)
[2017-11-16] MEDS ORDERED: PROMETHAZINE HC25 M1 PO (17:01)
[2017-11-16] MEDS ORDERED: MINOCYCLINE PO (17:03)
[2017-11-16 21:56] LABS: IRON 14 MCG/DL (35-150)
[2017-11-16 21:57] LABS: TRANSFERRIN (TIBC) 175.1 mg/dL (215-380); TRANSFERRIN SATUR. 8 % (20-55)
[2017-11-16 22:29] LABS: FERRITIN 105 NG/ML (10-291)
[2017-11-16 23:36] VITALS: BP 139/68
[2017-11-17 03:44] VITALS: BP 131/71
[2017-11-17 05:40] LABS: BASOPHIL (%) 0.3 % (0-1); BASOPHIL COUNT 0.1 K/uL (0-0.1); EOSINOPHIL (%) 0.1 % (0-5); HEMATOCRIT 27.7 % (36.0-46.0); IMMATURE GRANULOCYTE (%) 0.9 % (0.0-0.7); LYMPHOCYTE (%) 13.2 % (15-42); LYMPHOCYTE COUNT 2.4 K/uL (1.0-2.8); MCHC 30.7 G/DL (30.0-36.0); MONOCYTE (%) 8.8 % (3-12); MONOCYTE COUNT 1.6 K/uL (0-0.8); NEUTROPHIL (%) 76.7 % (45-76); NEUTROPHIL COUNT 14.1 K/uL (1.8-6.4); PLATELET COUNT 551 K/uL (156-360); RBC DIS.WIDTH-CV 22.7 % (11.8-14.6); WHITE BLOOD COUNT 18.3 K/uL (4.1-10.2)
[2017-11-17 05:48] LABS: HEMOGLOBIN 8.5 G/DL (11.9-15.5); RED BLOOD COUNT 4.26 M/uL (3.80-5.20)
[2017-11-17 05:57] LABS: CHLORIDE 106 MEQ/L (99-109); CREATININE 1.6 MG/DL (0.6-1.3); GFR ESTIMATE (CALCULATED) 38 mL/min/; GLUCOSE 116 mg/dL (70-99); POTASSIUM 4.2 MEQ/L (3.7-5.4); SODIUM 132 MEQ/L (136-147); UREA NITROGEN (BUN) 26 mg/dL (9-23)
[2017-11-17 08:36] VITALS: BP 155/74
[2017-11-17 11:28] VITALS: BP 129/74
[2017-11-17 17:02] VITALS: BP 152/80
[2017-11-17 21:03] VITALS: BP 149/77
[2017-11-18 00:42] VITALS: BP 143/80
[2017-11-18 04:35] VITALS: BP 162/88
[2017-11-18 05:18] LABS: BASOPHIL (%) 0.2 % (0-1); EOSINOPHIL (%) 0.2 % (0-5); HEMATOCRIT 29.4 % (36.0-46.0); HEMOGLOBIN 8.9 G/DL (11.9-15.5); IMMATURE GRANULOCYTE (%) 1.3 % (0.0-0.7); LYMPHOCYTE (%) 15.5 % (15-42); LYMPHOCYTE COUNT 2.8 K/uL (1.0-2.8); MCH 20.1 PG (29.0-34.0); MCHC 30.3 G/DL (30.0-36.0); MCV 66.4 FL (83-99); MONOCYTE (%) 8.3 % (3-12); MONOCYTE COUNT 1.5 K/uL (0-0.8); NEUTROPHIL (%) 74.5 % (45-76); NEUTROPHIL COUNT 13.5 K/uL (1.8-6.4); PLATELET COUNT 633 K/uL (156-360); RBC DIS.WIDTH-CV 23.7 % (11.8-14.6); RBC DIS.WIDTH-SD 54.4 % (39-53); RED BLOOD COUNT 4.43 M/uL (3.80-5.20); WHITE BLOOD COUNT 18.1 K/uL (4.1-10.2)
[2017-11-18 05:30] LABS: CHLORIDE 102 MEQ/L (99-109); CREATININE 1.4 MG/DL (0.6-1.3); GFR ESTIMATE (CALCULATED) 44 mL/min/; GLUCOSE 141 mg/dL (70-99); POTASSIUM 3.9 MEQ/L (3.7-5.4); SODIUM 128 MEQ/L (136-147); UREA NITROGEN (BUN) 23 mg/dL (9-23)
[2017-11-18 07:50] VITALS: BP 170/99
[2017-11-18 08:10] VITALS: BP 170/99
[2017-11-18 11:32] VITALS: BP 158/83
[2017-11-18 21:16] VITALS: BP 165/77
[2017-11-19] VITALS (7 sets, daily range): BP systolic 118–173; BP diastolic 59–83
[2017-11-19 09:16] LABS: CHLORIDE 110 MEQ/L (99-109); CREATININE 1.2 MG/DL (0.6-1.3); GFR ESTIMATE (CALCULATED) 53 mL/min/; GLUCOSE 117 mg/dL (70-99); UREA NITROGEN (BUN) 22 mg/dL (9-23)
[2017-11-19 09:20] LABS: SODIUM 135 MEQ/L (136-147)
[2017-11-19 09:26] LABS: BASOPHIL (%) 0.3 % (0-1); EOSINOPHIL (%) 1.3 % (0-5); EOSINOPHIL COUNT 0.2 K/uL (0-0.3); HEMATOCRIT 27.9 % (36.0-46.0); HEMOGLOBIN 8.6 G/DL (11.9-15.5); IMMATURE GRANULOCYTE (%) 1.2 % (0.0-0.7); LYMPHOCYTE (%) 24.5 % (15-42); LYMPHOCYTE COUNT 3.7 K/uL (1.0-2.8); MCH 20.6 PG (29.0-34.0); MCHC 30.8 G/DL (30.0-36.0); MCV 66.9 FL (83-99); MONOCYTE (%) 7.6 % (3-12); MONOCYTE COUNT 1.1 K/uL (0-0.8); NEUTROPHIL (%) 65.1 % (45-76); NEUTROPHIL COUNT 9.8 K/uL (1.8-6.4); PLATELET COUNT 514 K/uL (156-360); RBC DIS.WIDTH-CV 24.1 % (11.8-14.6); RBC DIS.WIDTH-SD 56.5 % (39-53); RED BLOOD COUNT 4.17 M/uL (3.80-5.20)
[2017-11-19 10:52] LABS: CHLORIDE 103 MEQ/L (99-109); CREATININE 1.3 MG/DL (0.6-1.3); GFR ESTIMATE (CALCULATED) 48 mL/min/; POTASSIUM 3.9 MEQ/L (3.7-5.4); SODIUM 129 MEQ/L (136-147); UREA NITROGEN (BUN) 21 mg/dL (9-23)
[2017-11-19 10:55] LABS: GLUCOSE 200 mg/dL (70-99)
[2017-11-20 07:06] LABS: BASOPHIL (%) 0.3 % (0-1); EOSINOPHIL COUNT 0.3 K/uL (0-0.3); HEMOGLOBIN 8.4 G/DL (11.9-15.5); IMMATURE GRANULOCYTE (%) 0.9 % (0.0-0.7); LYMPHOCYTE (%) 24.6 % (15-42); LYMPHOCYTE COUNT 3.2 K/uL (1.0-2.8); MCH 20.7 PG (29.0-34.0); MONOCYTE (%) 8.5 % (3-12); MONOCYTE COUNT 1.1 K/uL (0-0.8); NEUTROPHIL (%) 63.7 % (45-76); NEUTROPHIL COUNT 8.3 K/uL (1.8-6.4); PLATELET COUNT 493 K/uL (156-360); RBC DIS.WIDTH-CV 25.1 % (11.8-14.6); RBC DIS.WIDTH-SD 63.1 % (39-53); RED BLOOD COUNT 4.05 M/uL (3.80-5.20)
[2017-11-20 07:13] LABS: MCV 71.6 FL (83-99)
[2017-11-20 07:24] LABS: CHLORIDE 106 MEQ/L (99-109); CREATININE 1.3 MG/DL (0.6-1.3); GFR ESTIMATE (CALCULATED) 48 mL/min/; POTASSIUM 3.6 MEQ/L (3.7-5.4); SODIUM 133 MEQ/L (136-147); UREA NITROGEN (BUN) 18 mg/dL (9-23)
[2017-11-20 07:25] LABS: GLUCOSE 97 mg/dL (70-99)
[2017-11-20 07:30] VITALS: BP 170/84
[2017-11-20 08:17] LABS: COMMENTS - BLOOD GASES A+C+; DEVICE RA; PCO2 27 mm Hg (35-45); PO2 104 mm Hg (80-100); SITE RR; TOTAL RESP RATE 17 resp/min; pH 7.37 (7.35-7.45)
[2017-11-20 08:18] LABS: BASE EXCESS -8.5 mEq/L (-3 to +3); BICARBONATE 15.6 mEq/L (22-26); CARBOXY HGB 1.4 % (0-5); METHEMOGLOBIN 1.2 % (0-1.5)
[2017-11-20 16:44] VITALS: BP 1401/78
[2017-11-20 23:46] VITALS: BP 166/82
[2017-11-21 03:39] VITALS: BP 158/62
[2017-11-21 06:20] LABS: BASOPHIL (%) 0.2 % (0-1); EOSINOPHIL (%) 1.3 % (0-5); EOSINOPHIL COUNT 0.2 K/uL (0-0.3); HEMATOCRIT 26.5 % (36.0-46.0); HEMOGLOBIN 7.9 G/DL (11.9-15.5); IMMATURE GRANULOCYTE (%) 1.1 % (0.0-0.7); LYMPHOCYTE (%) 23.8 % (15-42); LYMPHOCYTE COUNT 3.1 K/uL (1.0-2.8); MCH 20.1 PG (29.0-34.0); MCHC 29.8 G/DL (30.0-36.0); MONOCYTE (%) 8.5 % (3-12); MONOCYTE COUNT 1.1 K/uL (0-0.8); NEUTROPHIL (%) 65.1 % (45-76); NEUTROPHIL COUNT 8.4 K/uL (1.8-6.4); PLATELET COUNT 579 K/uL (156-360); RBC DIS.WIDTH-CV 24.5 % (11.8-14.6); RBC DIS.WIDTH-SD 58.1 % (39-53); RED BLOOD COUNT 3.93 M/uL (3.80-5.20); WHITE BLOOD COUNT 12.9 K/uL (4.1-10.2)
[2017-11-21 06:22] LABS: MCV 67.4 FL (83-99)
[2017-11-21 06:48] LABS: CHLORIDE 107 MEQ/L (99-109); CREATININE 1.3 MG/DL (0.6-1.3); GFR ESTIMATE (CALCULATED) 48 mL/min/; GLUCOSE 91 mg/dL (70-99); POTASSIUM 4.1 MEQ/L (3.7-5.4); SODIUM 134 MEQ/L (136-147); UREA NITROGEN (BUN) 14 mg/dL (9-23)
[2017-11-21 08:00] VITALS: BP 133/74; BP 144/73
[2017-11-21 11:20] VITALS: BP 143/73
[2017-11-21 16:34] VITALS: BP 171/72
[2017-11-21 23:07] VITALS: BP 145/90
[2017-11-22 06:08] LABS: BASOPHIL (%) 0.3 % (0-1); BASOPHIL COUNT 0.1 K/uL (0-0.1); EOSINOPHIL (%) 2.4 % (0-5); EOSINOPHIL COUNT 0.3 K/uL (0-0.3); HEMATOCRIT 26.9 % (36.0-46.0); HEMOGLOBIN 7.9 G/DL (11.9-15.5); IMMATURE GRANULOCYTE (%) 0.8 % (0.0-0.7); LYMPHOCYTE (%) 27.8 % (15-42); MCH 20.1 PG (29.0-34.0); MCHC 29.4 G/DL (30.0-36.0); MCV 68.4 FL (83-99); MONOCYTE (%) 7.7 % (3-12); MONOCYTE COUNT 1.1 K/uL (0-0.8); NEUTROPHIL COUNT 8.7 K/uL (1.8-6.4); NRBC (%) 0.1 /100 WBC (0-0); PLATELET COUNT 573 K/uL (156-360); RBC DIS.WIDTH-CV 24.5 % (11.8-14.6); RBC DIS.WIDTH-SD 60.2 % (39-53); RED BLOOD COUNT 3.93 M/uL (3.80-5.20); WHITE BLOOD COUNT 14.3 K/uL (4.1-10.2)
[2017-11-22 06:30] LABS: CHLORIDE 110 MEQ/L (99-109); CREATININE 1.1 MG/DL (0.6-1.3); GFR ESTIMATE (CALCULATED) 58 mL/min/; GLUCOSE 95 mg/dL (70-99); POTASSIUM 4.1 MEQ/L (3.7-5.4); SODIUM 136 MEQ/L (136-147); UREA NITROGEN (BUN) 14 mg/dL (9-23)
[2017-11-22 07:52] VITALS: BP 138/76
[2017-11-22 16:35] VITALS: BP 142/80
[2017-11-22 23:22] VITALS: BP 152/78
[2017-11-23 06:23] LABS: BASOPHIL (%) 0.3 % (0-1); BASOPHIL COUNT 0.1 K/uL (0-0.1); EOSINOPHIL (%) 2.8 % (0-5); EOSINOPHIL COUNT 0.4 K/uL (0-0.3); HEMATOCRIT 27.6 % (36.0-46.0); HEMOGLOBIN 8.3 G/DL (11.9-15.5); IMMATURE GRANULOCYTE (%) 0.9 % (0.0-0.7); LYMPHOCYTE (%) 27.8 % (15-42); LYMPHOCYTE COUNT 4.1 K/uL (1.0-2.8); MCH 20.5 PG (29.0-34.0); MCHC 30.1 G/DL (30.0-36.0); MCV 68.3 FL (83-99); MONOCYTE (%) 7.5 % (3-12); MONOCYTE COUNT 1.1 K/uL (0-0.8); NEUTROPHIL (%) 60.7 % (45-76); PLATELET COUNT 674 K/uL (156-360); RBC DIS.WIDTH-CV 24.7 % (11.8-14.6); RBC DIS.WIDTH-SD 58.8 % (39-53); RED BLOOD COUNT 4.04 M/uL (3.80-5.20); WHITE BLOOD COUNT 14.9 K/uL (4.1-10.2)
[2017-11-23 06:29] LABS: CHLORIDE 108 MEQ/L (99-109); CREATININE 1.1 MG/DL (0.6-1.3); GFR ESTIMATE (CALCULATED) 58 mL/min/; GLUCOSE 97 mg/dL (70-99); POTASSIUM 4.1 MEQ/L (3.7-5.4); SODIUM 137 MEQ/L (136-147); UREA NITROGEN (BUN) 12 mg/dL (9-23)
[2017-11-23 07:11] VITALS: BP 150/78
[2017-11-23] MEDS ORDERED: VALACYCLOVIR500 MG PO (14:09)
[2017-11-23] MEDS ORDERED: IRON325 M1 PO (14:10)
[2017-11-23] MEDS ORDERED: METHADONE10 MG PO (14:12)
[2017-11-23] MEDS ORDERED: MORPHINE SULFAT15 MG PO (14:13)
[2017-11-23] MEDS ORDERED: NABI650T PO (14:14)
[2017-11-23] MEDS ORDERED: NIZORAL 2% CREA15 GM TP (14:15)
[2017-11-23] MEDS ORDERED: NOVOLOG 10100 UNITS/ SC (14:15)
[2017-11-23] MEDS ORDERED: Cortaid,Hytone 1% Cr TP (14:16)
[2017-11-23 15:26] VITALS: BP 137/67
== END 2017-11-23 18:11 | DRG 872 ==
LOC: EME 10:54 → EDOF 20:55 → 4EAST 20:55 → 5EAST 20:55 → ENRESERV 20:57 → 4EAST 23:18 → ENRESERV 11-18 16:30 → 5EAST 11-18 20:53
PROVIDERS: Hospitalist; Internal Medicine; Physician Assistant
DX: A41.9 Sepsis, unspecified organism (principal); N17.9 Acute kidney failure, unspecified; R65.20 Severe sepsis without septic shock; L88 Pyoderma gangrenosum; E87.2 Acidosis; E87.1 Hypo-osmolality and hyponatremia; G40.909 Epilepsy, unspecified, not intractable, without status epilepticus; B00.9 Herpesviral infection, unspecified; E66.01 Morbid (severe) obesity due to excess calories; Z68.42 Body mass index [BMI] 45.0-49.9, adult; M79.7 Fibromyalgia; N18.9 Chronic kidney disease, unspecified; E11.22 Type 2 diabetes mellitus with diabetic chronic kidney disease; E78.5 Hyperlipidemia, unspecified; I50.9 Heart failure, unspecified; J44.9 Chronic obstructive pulmonary disease, unspecified; E11.43 Type 2 diabetes mellitus with diabetic autonomic (poly)neuropathy; M06.9 Rheumatoid arthritis, unspecified; Z86.14 Personal history of Methicillin resistant Staphylococcus aureus infection; K21.9 Gastro-esophageal reflux disease without esophagitis; K31.84 Gastroparesis; D63.8 Anemia in other chronic diseases classified elsewhere; L98.419 Non-pressure chronic ulcer of buttock with unspecified severity; R23.4 Changes in skin texture; B37.2 Candidiasis of skin and nail; I83.12 Varicose veins of left lower extremity with inflammation; I83.11 Varicose veins of right lower extremity with inflammation
CPT/HCPCS: 36600; 71046; 72131; 72193; 80048; 80048 91; 81003; 82272; 82728; 82803; 82948; 83540; 83605; 84466; 85025; 85027; 87040; 87070; 87075; 87077; 87147; 87186; 87205; 87254; 87641; 94640; 94640 76; 97530 GP; 99202; 99281; 99285; J0360; J1170; J1200; J1644; J1756; J1815; J2020; J2060; J2270; J2405; J2543; J3010; J7030; J7050; J7512

== ENCOUNTER 2017-12-27 09:46 | Emergency (ER) | payer OTHER ==
[~2017-12-27] VITALS: Ht 165.1 cm; Wt 121.0 kg
[~2017-12-27 09:46] MED LIST changes: +BUPROPION HCL75 MG PO; +Cortaid,Hytone 1% Cr TP; +FLUOXETINE HCL20 M1 PO; +MINOCYCLINE PO; +NABI650T PO; +NIZORAL 2% CREA15 GM TP; +NOVOLOG 10100 UNITS/ SC; +OXCARBAZEPINE300 MG PO; +TACROLIMUS30 G1 TP; +VALACYCLOVIR500 MG PO
[2017-12-27 10:38] VITALS: BP 120/80
== END 2017-12-27 10:38 | disposition home or self-care (01) ==
LOC: EME 09:46
DX: I87.2 Venous insufficiency (chronic) (peripheral) (principal); E11.9 Type 2 diabetes mellitus without complications; J44.9 Chronic obstructive pulmonary disease, unspecified; I50.9 Heart failure, unspecified; M79.7 Fibromyalgia; K21.9 Gastro-esophageal reflux disease without esophagitis; G89.29 Other chronic pain; M54.9 Dorsalgia, unspecified; G43.909 Migraine, unspecified, not intractable, without status migrainosus; G47.33 Obstructive sleep apnea (adult) (pediatric); R56.9 Unspecified convulsions; G25.81 Restless legs syndrome; F41.9 Anxiety disorder, unspecified; F32.9 Major depressive disorder, single episode, unspecified; F31.9 Bipolar disorder, unspecified; Z86.14 Personal history of Methicillin resistant Staphylococcus aureus infection; Z90.49 Acquired absence of other specified parts of digestive tract; Z79.84 Long term (current) use of oral hypoglycemic drugs; Z79.51 Long term (current) use of inhaled steroids; Z91.040 Latex allergy status; Z88.5 Allergy status to narcotic agent; Z88.6 Allergy status to analgesic agent; Z88.2 Allergy status to sulfonamides; Z88.1 Allergy status to other antibiotic agents; Z88.8 Allergy status to other drugs, medicaments and biological substances; Z91.041 Radiographic dye allergy status; Z91.030 Bee allergy status
CPT/HCPCS: 99281; 99283

== ENCOUNTER 2017-12-31 09:39 | Emergency (ER) | payer OTHER ==
[~2017-12-31] VITALS: Ht 165.1 cm; Wt 120.4 kg
[2017-12-31 10:45] LABS: HEMATOCRIT 36.2 % (36.0-46.0); HEMOGLOBIN 11.1 G/DL (11.9-15.5); MCH 24.1 PG (29.0-34.0); MCHC 30.7 G/DL (30.0-36.0); MCV 78.5 FL (83-99); PLATELET COUNT 453 K/uL (156-360); RBC DIS.WIDTH-CV 22.4 % (11.8-14.6); RBC DIS.WIDTH-SD 63.6 % (39-53); RED BLOOD COUNT 4.61 M/uL (3.80-5.20); WHITE BLOOD COUNT 9.9 K/uL (4.1-10.2)
[2017-12-31 10:58] LABS: CHLORIDE 105 mEq/L (99-109); POTASSIUM 4.9 mEq/L (3.7-5.4); SODIUM 140 mEq/L (136-147)
[2017-12-31 10:59] LABS: GLUCOSE 138 mg/dL (70-99)
[2017-12-31 11:03] LABS: GFR ESTIMATE (CALCULATED) > 59 mL/min/
[2017-12-31 11:04] LABS: UREA NITROGEN (BUN) 12 mg/dL (9-23)
[2017-12-31 11:15] LABS: TROP-I INTERPRETATION NEGATIVE; TROPONIN-I < 0.01 ng/mL (0.0-0.30)
[2017-12-31 12:15] VITALS: BP 111/72
== END 2017-12-31 12:18 | disposition left against medical advice (07) ==
LOC: EME 09:39
DX: R07.9 Chest pain, unspecified (principal); Z53.21 Procedure and treatment not carried out due to patient leaving prior to being seen by health care provider
CPT/HCPCS: 71046; 80048; 84484; 85027; 93005

== ENCOUNTER 2018-01-05 14:10 | Emergency (ER) | payer OTHER ==
[~2018-01-05] VITALS: Ht 165.1 cm; Wt 120.0 kg
[2018-01-05] MEDS ORDERED: NYAMYC60 GM TP (15:35)
[2018-01-05] MEDS ORDERED: KEFLEX500 MG PO (15:35)
[2018-01-05 15:51] VITALS: BP 110/78
== END 2018-01-05 15:54 | disposition home or self-care (01) ==
LOC: EME 14:10
DX: B36.9 Superficial mycosis, unspecified (principal); E11.9 Type 2 diabetes mellitus without complications; J44.9 Chronic obstructive pulmonary disease, unspecified; I50.9 Heart failure, unspecified; G89.29 Other chronic pain; M54.9 Dorsalgia, unspecified; M79.7 Fibromyalgia; K21.9 Gastro-esophageal reflux disease without esophagitis; G25.81 Restless legs syndrome; G43.909 Migraine, unspecified, not intractable, without status migrainosus; R56.9 Unspecified convulsions; F41.9 Anxiety disorder, unspecified; F32.9 Major depressive disorder, single episode, unspecified; F31.9 Bipolar disorder, unspecified; Z86.14 Personal history of Methicillin resistant Staphylococcus aureus infection; Z90.49 Acquired absence of other specified parts of digestive tract; G47.33 Obstructive sleep apnea (adult) (pediatric); Z79.84 Long term (current) use of oral hypoglycemic drugs; Z79.51 Long term (current) use of inhaled steroids; Z88.5 Allergy status to narcotic agent; Z88.2 Allergy status to sulfonamides; Z88.1 Allergy status to other antibiotic agents; Z88.6 Allergy status to analgesic agent; Z91.041 Radiographic dye allergy status; Z91.040 Latex allergy status; Z91.030 Bee allergy status
CPT/HCPCS: 99281; 99284

== ENCOUNTER 2018-01-17 10:12 | Inpatient (IN) | payer OTHER ==
[~2018-01-17] VITALS: Ht 165.1 cm; Wt 99.3 kg
[~2018-01-17 10:12] MED LIST changes: -NEURONTIN400 MG PO; +NYAMYC60 GM TP
[2018-01-17 10:44] LABS: BASOPHIL (%) 0.1 % (0-1); EOSINOPHIL (%) 0.2 % (0-5); HEMATOCRIT 34.3 % (36.0-46.0); HEMOGLOBIN 10.8 G/DL (11.9-15.5); IMMATURE GRANULOCYTE (%) 0.9 % (0.0-0.7); LYMPHOCYTE COUNT 0.7 K/uL (1.0-2.8); MCHC 31.5 G/DL (30.0-36.0); MCV 76.2 FL (83-99); MONOCYTE (%) 8.9 % (3-12); NEUTROPHIL (%) 83.9 % (45-76); NEUTROPHIL COUNT 9.1 K/uL (1.8-6.4); PLATELET COUNT 480 K/uL (156-360); WHITE BLOOD COUNT 10.8 K/uL (4.1-10.2)
[2018-01-17 10:54] LABS: CHLORIDE 102 mEq/L (99-109); POTASSIUM 4.1 mEq/L (3.7-5.4); SODIUM 135 mEq/L (136-147)
[2018-01-17 10:55] LABS: GLUCOSE 162 mg/dL (70-99)
[2018-01-17 10:59] LABS: GFR ESTIMATE (CALCULATED) > 59 mL/min/
[2018-01-17 11:00] LABS: UREA NITROGEN (BUN) 15 mg/dL (9-23)
[2018-01-17 13:36] LABS: APPEARANCE CLEAR ((CLEAR)); BILIRUBIN NEGATIVE; BLOOD NEGATIVE; COLOR YELLOW ((YELLOW)); GLUCOSE (STRIP) NEGATIVE; KETONES NEGATIVE; LEUKOCYTES TRACE; NITRITE NEGATIVE; PROTEIN (STRIP) NEGATIVE; SPECIFIC GRAVITY 1.013 (1.000-1.030); UROBILINOGEN 0.2 MG/DL (0.2-1.0)
[2018-01-17 13:44] LABS: BACTERIA RARE /HPF; EPITHELIAL CELLS RARE /HPF; MUCUS NONE SEEN /LPF; RED BLOOD CELLS 0-5 /HPF (0-5); UCUL ADDED? NO; WHITE BLOOD CELLS 0-5 /HPF (0-5)
[2018-01-17] MEDS ORDERED: MOBIC15 MG PO (16:05)
[2018-01-17] MEDS ORDERED: REMERON30 M2 PO (16:22)
[2018-01-17] MEDS ORDERED: MORPHINE SULFAT15 MG PO (16:25)
[2018-01-17] MEDS ORDERED: IMITREX100 MG PO (16:27)
[2018-01-17 20:44] VITALS: BP 124/55
[2018-01-17 23:48] VITALS: BP 108/54
[2018-01-18 06:56] LABS: HEMATOCRIT 29.1 % (36.0-46.0); MCH 23.9 PG (29.0-34.0); MCHC 30.9 G/DL (30.0-36.0); MCV 77.2 FL (83-99); PLATELET COUNT 441 K/uL (156-360); RBC DIS.WIDTH-CV 20.2 % (11.8-14.6); RBC DIS.WIDTH-SD 56.8 % (39-53); RED BLOOD COUNT 3.77 M/uL (3.80-5.20); WHITE BLOOD COUNT 10.4 K/uL (4.1-10.2)
[2018-01-18 07:19] LABS: ALBUMIN 2.4 G/DL (3.2-4.8); ALKALINE PHOSPHATASE 84 IU/L (3-129); ALT (GPT) 10 IU/L (3-49); AST (GOT) 13 IU/L (2-34); CHLORIDE 102 MEQ/L (99-109); CREATININE 0.9 MG/DL (0.6-1.3); GFR ESTIMATE (CALCULATED) > 59 mL/min/; POTASSIUM 3.5 MEQ/L (3.7-5.4); SODIUM 134 MEQ/L (136-147); TOTAL BILIRUBIN 0.3 MG/DL (0.0-1.0); TOTAL PROTEIN 4.8 G/DL (6.4-8.3); UREA NITROGEN (BUN) 12 mg/dL (9-23)
[2018-01-18 07:34] LABS: GLUCOSE 115 mg/dL (70-99)
[2018-01-18 07:54] VITALS: BP 142/81
[2018-01-18 08:19] LABS: MAGNESIUM 1.6 mg/dl (1.3-2.7)
[2018-01-18 16:21] VITALS: BP 120/58
[2018-01-19 00:38] VITALS: BP 124/61
[2018-01-19 07:36] VITALS: BP 134/68
[2018-01-19 07:39] LABS: CHLORIDE 105 MEQ/L (99-109); CREATININE 1.2 MG/DL (0.6-1.3); GFR ESTIMATE (CALCULATED) 52 mL/min/; GLUCOSE 79 mg/dL (70-99); POTASSIUM 3.9 MEQ/L (3.7-5.4); SODIUM 138 MEQ/L (136-147); UREA NITROGEN (BUN) 11 mg/dL (9-23)
[2018-01-19 07:43] LABS: HEMATOCRIT 31.9 % (36.0-46.0); HEMOGLOBIN 9.8 G/DL (11.9-15.5); MCHC 30.7 G/DL (30.0-36.0); MCV 78.2 FL (83-99); PLATELET COUNT 472 K/uL (156-360); RBC DIS.WIDTH-CV 20.7 % (11.8-14.6); RBC DIS.WIDTH-SD 57.9 % (39-53); RED BLOOD COUNT 4.08 M/uL (3.80-5.20); WHITE BLOOD COUNT 10.9 K/uL (4.1-10.2)
[2018-01-19 17:06] VITALS: BP 114/58
[2018-01-19 23:16] VITALS: BP 106/52
[2018-01-20 06:41] LABS: GFR ESTIMATE (CALCULATED) > 59 mL/min/; UREA NITROGEN (BUN) 11 mg/dL (9-23)
[2018-01-20 08:10] VITALS: BP 111/64
[2018-01-20] MEDS ORDERED: PRILOSEC20 MG PO (15:32)
[2018-01-20 16:24] VITALS: BP 121/62
[2018-01-20] MEDS ORDERED: CIPRO500 MG PO (16:31)
[2018-01-20] MEDS ORDERED: VIBRAMYCIN100 MG PO (16:32)
[2018-01-20] MEDS ORDERED: PREDNISONE10 MG PO (16:44)
== END 2018-01-20 18:28 | disposition home health service (06) | DRG 872 ==
LOC: EME 10:12 → 5EAST 17:32 → EDOF 17:32 → ENRESERV 17:33 → 5EAST 20:18
PROVIDERS: Hospitalist; Physician Assistant
DX: A41.9 Sepsis, unspecified organism (principal); L88 Pyoderma gangrenosum; L03.116 Cellulitis of left lower limb; L03.115 Cellulitis of right lower limb; L03.317 Cellulitis of buttock; L02.416 Cutaneous abscess of left lower limb; L02.415 Cutaneous abscess of right lower limb; B95.62 Methicillin resistant Staphylococcus aureus infection as the cause of diseases classified elsewhere; B96.5 Pseudomonas (aeruginosa) (mallei) (pseudomallei) as the cause of diseases classified elsewhere; L97.229 Non-pressure chronic ulcer of left calf with unspecified severity; L97.219 Non-pressure chronic ulcer of right calf with unspecified severity; E87.2 Acidosis; E86.0 Dehydration; E11.43 Type 2 diabetes mellitus with diabetic autonomic (poly)neuropathy; K31.84 Gastroparesis; E66.01 Morbid (severe) obesity due to excess calories; Z68.42 Body mass index [BMI] 45.0-49.9, adult; I50.9 Heart failure, unspecified; J44.9 Chronic obstructive pulmonary disease, unspecified; G47.33 Obstructive sleep apnea (adult) (pediatric); G89.29 Other chronic pain; M79.7 Fibromyalgia; G43.909 Migraine, unspecified, not intractable, without status migrainosus; M54.9 Dorsalgia, unspecified; K21.9 Gastro-esophageal reflux disease without esophagitis; M06.9 Rheumatoid arthritis, unspecified; D64.9 Anemia, unspecified; E78.5 Hyperlipidemia, unspecified; F32.9 Major depressive disorder, single episode, unspecified; F41.9 Anxiety disorder, unspecified; Z83.3 Family history of diabetes mellitus; Z87.01 Personal history of pneumonia (recurrent)
CPT/HCPCS: 71046; 74177; 80048; 80053; 81003; 82565; 82948; 83605; 83735; 84520; 85025; 85027; 87040; 94640; 94640 76; 99202; 99281; 99285; C1753; J1170; J1200; J1650; J1815; J2020; J2405; J2543; J2997; J3010; J7030; J7050; J7120; J7512; Q0177

== ENCOUNTER 2018-02-05 03:01 | Emergency (ER) | payer OTHER ==
[~2018-02-05] VITALS: Ht 165.1 cm; Wt 135.0 kg
[~2018-02-05 03:01] MED LIST changes: +PRILOSEC20 MG PO; +REMERON30 M2 PO
[2018-02-05 06:01] VITALS: BP 121/82
== END 2018-02-05 06:02 | disposition home or self-care (01) ==
LOC: EME 03:01
DX: M79.605 Pain in left leg (principal); M79.604 Pain in right leg; G89.29 Other chronic pain; L88 Pyoderma gangrenosum; E11.9 Type 2 diabetes mellitus without complications; J44.9 Chronic obstructive pulmonary disease, unspecified; I50.9 Heart failure, unspecified; M79.7 Fibromyalgia; K21.9 Gastro-esophageal reflux disease without esophagitis; G47.33 Obstructive sleep apnea (adult) (pediatric); M54.9 Dorsalgia, unspecified; G25.81 Restless legs syndrome; R56.9 Unspecified convulsions; G43.909 Migraine, unspecified, not intractable, without status migrainosus; F41.9 Anxiety disorder, unspecified; F32.9 Major depressive disorder, single episode, unspecified; F31.9 Bipolar disorder, unspecified; Z86.14 Personal history of Methicillin resistant Staphylococcus aureus infection; Z86.19 Personal history of other infectious and parasitic diseases; Z90.49 Acquired absence of other specified parts of digestive tract; Z79.84 Long term (current) use of oral hypoglycemic drugs; Z79.51 Long term (current) use of inhaled steroids; Z88.5 Allergy status to narcotic agent; Z88.6 Allergy status to analgesic agent; Z88.2 Allergy status to sulfonamides; Z88.1 Allergy status to other antibiotic agents; Z91.040 Latex allergy status; Z91.041 Radiographic dye allergy status
CPT/HCPCS: 99281; 99284; J2270

== ENCOUNTER 2018-02-12 05:11 | Emergency (ER) | payer OTHER ==
[~2018-02-12] VITALS: Ht 167.6 cm; Wt 131.8 kg
[2018-02-12 07:29] LABS: HEMATOCRIT 35.5 % (36.0-46.0); MCH 24.6 PG (29.0-34.0); MCV 79.4 FL (83-99); PLATELET COUNT 372 K/uL (156-360); RBC DIS.WIDTH-CV 19.9 % (11.8-14.6); RBC DIS.WIDTH-SD 55.7 % (39-53); RED BLOOD COUNT 4.47 M/uL (3.80-5.20); WHITE BLOOD COUNT 13.6 K/uL (4.1-10.2)
[2018-02-12 08:03] LABS: CHLORIDE 104 MEQ/L (99-109); CREATININE 0.8 MG/DL (0.6-1.3); GFR ESTIMATE (CALCULATED) > 59 mL/min/; GLUCOSE 123 mg/dL (70-99); POTASSIUM 3.7 MEQ/L (3.7-5.4); SODIUM 139 MEQ/L (136-147); UREA NITROGEN (BUN) 10 mg/dL (9-23)
[2018-02-12 10:11] VITALS: BP 133/76
== END 2018-02-12 10:12 | disposition home or self-care (01) ==
LOC: EME 05:11
PROVIDERS: Physician Assistant
DX: M79.604 Pain in right leg (principal); M79.605 Pain in left leg; G89.29 Other chronic pain; L88 Pyoderma gangrenosum; Z91.040 Latex allergy status; Z88.1 Allergy status to other antibiotic agents; Z88.6 Allergy status to analgesic agent; Z88.5 Allergy status to narcotic agent; Z88.2 Allergy status to sulfonamides; Z88.8 Allergy status to other drugs, medicaments and biological substances
CPT/HCPCS: 80048; 81003; 83605; 85027; 99281; 99285; J3010

== ENCOUNTER 2018-02-21 23:16 | Emergency (ER) | payer OTHER ==
[~2018-02-21] VITALS: Ht 167.6 cm; Wt 127.2 kg
[2018-02-22 00:22] LABS: HEMATOCRIT 35.8 % (36.0-46.0); HEMOGLOBIN 11.1 G/DL (11.9-15.5); MCH 24.6 PG (29.0-34.0); MCV 79.4 FL (83-99); RBC DIS.WIDTH-CV 18.7 % (11.8-14.6); RBC DIS.WIDTH-SD 53.6 % (39-53); RED BLOOD COUNT 4.51 M/uL (3.80-5.20)
[2018-02-22 00:24] LABS: PLATELET COUNT 543 K/uL (156-360)
[2018-02-22 00:33] LABS: CHLORIDE 106 mEq/L (99-109); POTASSIUM 3.6 mEq/L (3.7-5.4); SODIUM 141 mEq/L (136-147)
[2018-02-22 00:35] LABS: GLUCOSE 130 mg/dL (70-99)
[2018-02-22 01:09] LABS: CREATININE 1.1 mg/dL (0.6-1.3); GFR ESTIMATE (CALCULATED) 58 mL/min/
[2018-02-22 01:10] LABS: UREA NITROGEN (BUN) 13 mg/dL (9-23)
[2018-02-22 01:31] VITALS: BP 138/85
== END 2018-02-22 01:34 | disposition home or self-care (01) ==
LOC: EME 23:16
PROVIDERS: Nurse Practitioner Family
DX: I87.2 Venous insufficiency (chronic) (peripheral) (principal); L97.929 Non-pressure chronic ulcer of unspecified part of left lower leg with unspecified severity; L97.919 Non-pressure chronic ulcer of unspecified part of right lower leg with unspecified severity; G89.29 Other chronic pain; Z79.891 Long term (current) use of opiate analgesic; J44.9 Chronic obstructive pulmonary disease, unspecified; E11.9 Type 2 diabetes mellitus without complications; Z79.84 Long term (current) use of oral hypoglycemic drugs; Z88.1 Allergy status to other antibiotic agents; Z88.2 Allergy status to sulfonamides
CPT/HCPCS: 80048; 85027; 99281; 99284; J3010

== ENCOUNTER 2018-02-23 21:35 | Emergency (ER) | payer OTHER ==
[~2018-02-23] VITALS: Ht 167.6 cm; Wt 132.2 kg
[2018-02-24 00:06] VITALS: BP 143/92
== END 2018-02-24 00:06 | disposition home or self-care (01) ==
LOC: EME 21:35
DX: M79.604 Pain in right leg (principal); M79.605 Pain in left leg; G89.29 Other chronic pain; Z91.040 Latex allergy status; Z88.1 Allergy status to other antibiotic agents; Z88.5 Allergy status to narcotic agent; Z88.6 Allergy status to analgesic agent; Z91.030 Bee allergy status; Z91.041 Radiographic dye allergy status; Z88.2 Allergy status to sulfonamides; Z91.048 Other nonmedicinal substance allergy status
CPT/HCPCS: 99281; 99284; J3010

== ENCOUNTER 2018-02-25 03:41 | Emergency (ER) | payer OTHER ==
[~2018-02-25] VITALS: Ht 167.6 cm; Wt 132.6 kg
[2018-02-25 06:05] VITALS: BP 140/81
== END 2018-02-25 06:06 | disposition home or self-care (01) ==
LOC: EME 03:41
DX: M79.605 Pain in left leg (principal); M79.604 Pain in right leg; G89.29 Other chronic pain; E11.9 Type 2 diabetes mellitus without complications; Z79.84 Long term (current) use of oral hypoglycemic drugs; J44.9 Chronic obstructive pulmonary disease, unspecified; Z79.51 Long term (current) use of inhaled steroids; I50.9 Heart failure, unspecified; M79.7 Fibromyalgia; K21.9 Gastro-esophageal reflux disease without esophagitis; G43.909 Migraine, unspecified, not intractable, without status migrainosus; R56.9 Unspecified convulsions; F32.9 Major depressive disorder, single episode, unspecified; F41.9 Anxiety disorder, unspecified; F31.9 Bipolar disorder, unspecified; Z90.49 Acquired absence of other specified parts of digestive tract; Z91.040 Latex allergy status; Z88.1 Allergy status to other antibiotic agents; Z88.5 Allergy status to narcotic agent; Z88.6 Allergy status to analgesic agent; Z88.2 Allergy status to sulfonamides; Z88.8 Allergy status to other drugs, medicaments and biological substances; Z91.030 Bee allergy status; Z91.09 Other allergy status, other than to drugs and biological substances
CPT/HCPCS: 99281; 99284; J3010

== ENCOUNTER 2018-02-25 22:18 | Emergency (ER) | payer OTHER ==
[~2018-02-25] VITALS: Ht 167.6 cm; Wt 131.8 kg
[2018-02-26 05:30] LABS: HEMATOCRIT 35.8 % (36.0-46.0); HEMOGLOBIN 11.2 G/DL (11.9-15.5); MCH 24.9 PG (29.0-34.0); MCHC 31.3 G/DL (30.0-36.0); MCV 79.7 FL (83-99); PLATELET COUNT 552 K/uL (156-360); RBC DIS.WIDTH-CV 18.7 % (11.8-14.6); RBC DIS.WIDTH-SD 54.1 % (39-53); RED BLOOD COUNT 4.49 M/uL (3.80-5.20); WHITE BLOOD COUNT 12.6 K/uL (4.1-10.2)
[2018-02-26 05:34] LABS: CHLORIDE 107 mEq/L (99-109); POTASSIUM 4.2 mEq/L (3.7-5.4); SODIUM 141 mEq/L (136-147)
[2018-02-26 05:36] LABS: GLUCOSE 130 mg/dL (70-99)
[2018-02-26 05:40] LABS: GFR ESTIMATE (CALCULATED) > 59 mL/min/
[2018-02-26 05:41] LABS: UREA NITROGEN (BUN) 17 mg/dL (9-23)
[2018-02-26 08:05] VITALS: BP 132/65
== END 2018-02-26 08:14 | disposition home or self-care (01) ==
LOC: EME 22:18
PROVIDERS: Emergency Medicine
DX: M79.604 Pain in right leg (principal); M79.605 Pain in left leg; G89.29 Other chronic pain; L03.116 Cellulitis of left lower limb; L03.115 Cellulitis of right lower limb; Z76.5 Malingerer [conscious simulation]; R79.89 Other specified abnormal findings of blood chemistry; Z79.891 Long term (current) use of opiate analgesic; J44.9 Chronic obstructive pulmonary disease, unspecified; E11.9 Type 2 diabetes mellitus without complications; Z79.84 Long term (current) use of oral hypoglycemic drugs; Z88.1 Allergy status to other antibiotic agents; Z88.2 Allergy status to sulfonamides
CPT/HCPCS: 80048; 83605; 83880; 85027; 87040; 99281; 99285; J3010

== ENCOUNTER 2018-03-04 02:45 | Emergency (ER) | payer OTHER ==
[~2018-03-04] VITALS: Ht 160 cm; Wt 132.2 kg
[2018-03-04 03:44] VITALS: BP 141/94
[2018-03-05] MEDS ORDERED: CHLORHEXIDINE473 ML MM (20:04)
== END 2018-03-04 03:45 | disposition home or self-care (01) ==
LOC: EME 02:45
DX: G89.29 Other chronic pain (principal); M79.605 Pain in left leg; M79.604 Pain in right leg; Z88.2 Allergy status to sulfonamides; Z88.1 Allergy status to other antibiotic agents; Z91.040 Latex allergy status
CPT/HCPCS: 99281; 99284; J3010

== ENCOUNTER 2018-03-05 19:29 | Emergency (ER) | payer OTHER ==
[~2018-03-05] VITALS: Ht 167.6 cm; Wt 132.0 kg
[2018-03-05] MEDS ORDERED: CHLORHEXIDINE473 ML MM (20:04)
[2018-03-05 22:38] VITALS: BP 119/74
== END 2018-03-05 22:39 | disposition home or self-care (01) ==
LOC: EME 19:29
DX: G89.29 Other chronic pain (principal); M79.605 Pain in left leg; M79.604 Pain in right leg; K12.0 Recurrent oral aphthae; L97.919 Non-pressure chronic ulcer of unspecified part of right lower leg with unspecified severity; L97.929 Non-pressure chronic ulcer of unspecified part of left lower leg with unspecified severity; E11.9 Type 2 diabetes mellitus without complications; Z79.84 Long term (current) use of oral hypoglycemic drugs; F32.9 Major depressive disorder, single episode, unspecified; E78.5 Hyperlipidemia, unspecified; M06.9 Rheumatoid arthritis, unspecified; F41.9 Anxiety disorder, unspecified; I50.9 Heart failure, unspecified; J44.9 Chronic obstructive pulmonary disease, unspecified; K21.9 Gastro-esophageal reflux disease without esophagitis; M79.7 Fibromyalgia; Z88.2 Allergy status to sulfonamides; Z88.1 Allergy status to other antibiotic agents; Z91.040 Latex allergy status; Z88.6 Allergy status to analgesic agent; Z88.5 Allergy status to narcotic agent
CPT/HCPCS: 99281; 99284; J3010

== ENCOUNTER 2018-03-12 19:12 | Emergency (ER) | payer OTHER ==
[~2018-03-12] VITALS: Ht 167.6 cm; Wt 132.2 kg
[~2018-03-12 19:12] MED LIST changes: +CHLORHEXIDINE473 ML MM
[2018-03-12 22:55] VITALS: BP 126/75
== END 2018-03-12 22:55 | disposition home or self-care (01) ==
LOC: EME 19:12
DX: G89.29 Other chronic pain (principal); L88 Pyoderma gangrenosum; M79.605 Pain in left leg; M79.604 Pain in right leg; M79.7 Fibromyalgia; K21.9 Gastro-esophageal reflux disease without esophagitis; J44.9 Chronic obstructive pulmonary disease, unspecified; E11.9 Type 2 diabetes mellitus without complications; I50.9 Heart failure, unspecified; E78.5 Hyperlipidemia, unspecified; G43.909 Migraine, unspecified, not intractable, without status migrainosus; R56.9 Unspecified convulsions; F41.9 Anxiety disorder, unspecified; F32.9 Major depressive disorder, single episode, unspecified; F31.9 Bipolar disorder, unspecified; Z90.49 Acquired absence of other specified parts of digestive tract; Z79.84 Long term (current) use of oral hypoglycemic drugs; Z91.040 Latex allergy status; Z88.2 Allergy status to sulfonamides; Z88.1 Allergy status to other antibiotic agents; Z88.6 Allergy status to analgesic agent; Z88.5 Allergy status to narcotic agent; Z88.8 Allergy status to other drugs, medicaments and biological substances
CPT/HCPCS: 99281; 99284; J3010

== ENCOUNTER 2018-03-16 22:48 | Emergency (ER) | payer OTHER ==
[~2018-03-16] VITALS: Ht 165.1 cm; Wt 131.3 kg
[2018-03-17] MEDS ORDERED: BACTROBAN CREAM15 GM TP (03:26)
[2018-03-17 04:39] VITALS: BP 117/92
== END 2018-03-17 04:20 | disposition home or self-care (01) ==
LOC: EME 22:48
PROC: 0H9NXZZ Drainage of Left Foot Skin, External Approach (ICD-10-PCS; principal; 2018-03-17)
DX: L03.032 Cellulitis of left toe (principal); G89.29 Other chronic pain; M79.604 Pain in right leg; M79.605 Pain in left leg; E11.9 Type 2 diabetes mellitus without complications; Z79.84 Long term (current) use of oral hypoglycemic drugs; E78.5 Hyperlipidemia, unspecified; F32.9 Major depressive disorder, single episode, unspecified; F41.9 Anxiety disorder, unspecified; I50.9 Heart failure, unspecified; J44.9 Chronic obstructive pulmonary disease, unspecified; K21.9 Gastro-esophageal reflux disease without esophagitis; M79.7 Fibromyalgia; Z88.2 Allergy status to sulfonamides; Z88.1 Allergy status to other antibiotic agents; Z91.040 Latex allergy status; Z88.5 Allergy status to narcotic agent
CPT/HCPCS: 99281; 99285

== ENCOUNTER 2018-04-07 19:58 | Emergency (ER) | payer OTHER ==
[~2018-04-07] VITALS: Ht 165.1 cm; Wt 132.2 kg
[~2018-04-07 19:58] MED LIST changes: +BACTROBAN CREAM15 GM TP
[2018-04-07 22:31] VITALS: BP 148/75
== END 2018-04-07 22:32 | disposition home or self-care (01) ==
LOC: EME 19:58
DX: G89.29 Other chronic pain (principal); M79.606 Pain in leg, unspecified; L88 Pyoderma gangrenosum; Z91.040 Latex allergy status; Z88.1 Allergy status to other antibiotic agents; Z88.2 Allergy status to sulfonamides; Z88.6 Allergy status to analgesic agent; Z88.5 Allergy status to narcotic agent; Z88.8 Allergy status to other drugs, medicaments and biological substances
CPT/HCPCS: 99281; 99283; J1170

== ENCOUNTER 2018-04-11 09:07 | Emergency (ER) | payer OTHER ==
[~2018-04-11] VITALS: Ht 165.1 cm; Wt 134.0 kg
[2018-04-11 11:52] LABS: BASOPHIL (%) 0.4 % (0-1); BASOPHIL COUNT 0.1 K/uL (0-0.1); EOSINOPHIL COUNT 0.2 K/uL (0-0.3); HEMATOCRIT 37.9 % (36.0-46.0); HEMOGLOBIN 11.7 G/DL (11.9-15.5); IMMATURE GRANULOCYTE (%) 0.4 % (0.0-0.7); LYMPHOCYTE (%) 7.2 % (15-42); LYMPHOCYTE COUNT 1.2 K/uL (1.0-2.8); MCH 24.7 PG (29.0-34.0); MCHC 30.9 G/DL (30.0-36.0); MCV 80.1 FL (83-99); MONOCYTE (%) 4.4 % (3-12); MONOCYTE COUNT 0.7 K/uL (0-0.8); NEUTROPHIL (%) 86.6 % (45-76); NEUTROPHIL COUNT 14.3 K/uL (1.8-6.4); PLATELET COUNT 400 K/uL (156-360); RBC DIS.WIDTH-CV 16.9 % (11.8-14.6); RBC DIS.WIDTH-SD 48.9 % (39-53); RED BLOOD COUNT 4.73 M/uL (3.80-5.20); WHITE BLOOD COUNT 16.5 K/uL (4.1-10.2)
[2018-04-11 11:59] LABS: ALBUMIN 3.7 g/dL (3.2-4.8)
[2018-04-11 12:00] LABS: CHLORIDE 106 mEq/L (99-109); POTASSIUM 2.9 mEq/L (3.7-5.4); SODIUM 141 mEq/L (136-147)
[2018-04-11 12:02] LABS: GLUCOSE 186 mg/dL (70-99)
[2018-04-11 12:04] LABS: TOTAL BILIRUBIN 0.3 mg/dL (0.0-1.0)
[2018-04-11 12:05] LABS: ALKALINE PHOSPHATASE 90 IU/L (3-129)
[2018-04-11 12:06] LABS: CREATININE 1.3 mg/dL (0.6-1.3); GFR ESTIMATE (CALCULATED) 48 mL/min/
[2018-04-11 12:07] LABS: AST (GOT) 17 IU/L (2-34); UREA NITROGEN (BUN) 19 mg/dL (9-23)
[2018-04-11 12:09] LABS: ALT (GPT) 13 IU/L (3-49)
[2018-04-11] MEDS ORDERED: KLOR-CON M2020 MEQ PO (12:26)
[2018-04-11 12:46] VITALS: BP 154/101
== END 2018-04-11 12:47 | disposition home or self-care (01) ==
LOC: EME 09:07
PROVIDERS: Emergency Medicine
DX: G89.29 Other chronic pain (principal); E87.6 Hypokalemia; L88 Pyoderma gangrenosum; J44.9 Chronic obstructive pulmonary disease, unspecified; E11.9 Type 2 diabetes mellitus without complications; Z79.84 Long term (current) use of oral hypoglycemic drugs; Z79.891 Long term (current) use of opiate analgesic; Z88.1 Allergy status to other antibiotic agents; Z88.2 Allergy status to sulfonamides
CPT/HCPCS: 80053; 85025; 99281; 99283; J3010

== ENCOUNTER 2018-04-12 05:45 | Emergency (ER) | payer OTHER ==
[~2018-04-12] VITALS: Ht 165.1 cm; Wt 134.0 kg
[2018-04-12 07:02] VITALS: BP 125/86
== END 2018-04-12 07:03 | disposition home or self-care (01) ==
LOC: EME 05:45
DX: G89.29 Other chronic pain (principal); M79.662 Pain in left lower leg; M79.661 Pain in right lower leg; E11.9 Type 2 diabetes mellitus without complications; E78.5 Hyperlipidemia, unspecified; F31.9 Bipolar disorder, unspecified; F41.9 Anxiety disorder, unspecified; I50.9 Heart failure, unspecified; J44.9 Chronic obstructive pulmonary disease, unspecified; K21.9 Gastro-esophageal reflux disease without esophagitis; M79.7 Fibromyalgia; Z88.2 Allergy status to sulfonamides; Z88.1 Allergy status to other antibiotic agents; Z88.6 Allergy status to analgesic agent; Z91.040 Latex allergy status
CPT/HCPCS: 99281; 99283; J3010

== ENCOUNTER 2018-04-18 10:04 | Inpatient (IN) | payer OTHER ==
[~2018-04-18] VITALS: Ht 165.1 cm; Wt 136.4 kg
[2018-04-18 11:46] LABS: BASOPHIL (%) 0.3 % (0-1); EOSINOPHIL (%) 0.9 % (0-5); EOSINOPHIL COUNT 0.1 K/uL (0-0.3); HEMATOCRIT 35.9 % (36.0-46.0); HEMOGLOBIN 11.5 G/DL (11.9-15.5); IMMATURE GRANULOCYTE (%) 0.5 % (0.0-0.7); LYMPHOCYTE (%) 23.8 % (15-42); LYMPHOCYTE COUNT 2.8 K/uL (1.0-2.8); MCH 25.1 PG (29.0-34.0); MCV 78.4 FL (83-99); MONOCYTE (%) 9.6 % (3-12); MONOCYTE COUNT 1.1 K/uL (0-0.8); NEUTROPHIL (%) 64.9 % (45-76); NEUTROPHIL COUNT 7.6 K/uL (1.8-6.4); PLATELET COUNT 427 K/uL (156-360); RBC DIS.WIDTH-CV 16.5 % (11.8-14.6); RBC DIS.WIDTH-SD 46.3 % (39-53); RED BLOOD COUNT 4.58 M/uL (3.80-5.20); WHITE BLOOD COUNT 11.7 K/uL (4.1-10.2)
[2018-04-18 11:49] LABS: CARBON DIOXIDE (BICARBONATE) 32.9 MEQ/L (20-31)
[2018-04-18 12:08] LABS: TROP-I INTERPRETATION NEGATIVE; TROPONIN-I < 0.01 ng/mL (0.0-0.30)
[2018-04-18 13:46] LABS: CHLORIDE 103 mEq/L (99-109); POTASSIUM 3.2 mEq/L (3.7-5.4); SODIUM 143 mEq/L (136-147)
[2018-04-18 13:48] LABS: GLUCOSE 200 mg/dL (70-99)
[2018-04-18 13:52] LABS: CREATININE 0.9 mg/dL (0.6-1.3); GFR ESTIMATE (CALCULATED) > 59 mL/min/
[2018-04-18 13:53] LABS: UREA NITROGEN (BUN) 16 mg/dL (9-23)
[2018-04-18] MEDS ORDERED: RANITIDINE HCL300 MG PO (16:11)
[2018-04-18] MEDS ORDERED: ONDANSETRON HCL4 MG PO (16:11)
[2018-04-18] MEDS ORDERED: CARBAMAZEPINE200 MG PO (16:11)
[2018-04-18] MEDS ORDERED: CLONAZEPAM0.5 MG PO (16:12)
[2018-04-18] MEDS ORDERED: DESYREL 150 MG150 MG PO (16:12)
[2018-04-18] MEDS ORDERED: SERTRALINE HCL100 MG PO (16:12)
[2018-04-18] MEDS ORDERED: SUBOXONE 12 MG1 EACH SL (16:13)
[2018-04-18] MEDS ORDERED: MELOXICAM15 MG PO (16:14)
[2018-04-18] MEDS ORDERED: GABAPENTIN800 MG PO (16:14)
[2018-04-18] MEDS ORDERED: TIZANIDINE HCL4 MG PO (16:14)
[2018-04-18] MEDS ORDERED: SUMATRIPTAN SU100 MG PO (16:16)
[2018-04-18] MEDS ORDERED: FEOSOL325 MG PO (16:23)
[2018-04-18] MEDS ORDERED: ANTI-ITCH28 G1 TP (16:24)
[2018-04-18] MEDS ORDERED: DELTASONE20 M1 PO (16:26)
[2018-04-18] MEDS ORDERED: PREDNISONE20 MG PO (16:26)
[2018-04-18 18:54] VITALS: BP 156/85
[2018-04-18 20:55] VITALS: BP 137/84
[2018-04-19 00:07] VITALS: BP 144/87
[2018-04-19 03:52] VITALS: BP 149/98
[2018-04-19 05:14] LABS: CHLORIDE 104 mEq/L (99-109); POTASSIUM 3.5 mEq/L (3.7-5.4); SODIUM 142 mEq/L (136-147)
[2018-04-19 05:15] LABS: GLUCOSE 148 mg/dL (70-99)
[2018-04-19 05:19] LABS: CREATININE 1.1 mg/dL (0.6-1.3); GFR ESTIMATE (CALCULATED) 58 mL/min/
[2018-04-19 05:20] LABS: UREA NITROGEN (BUN) 15 mg/dL (9-23)
[2018-04-19 05:27] LABS: HEMATOCRIT 39.3 % (36.0-46.0); HEMOGLOBIN 12.2 G/DL (11.9-15.5); MCH 24.8 PG (29.0-34.0); MCV 79.9 FL (83-99); PLATELET COUNT 537 K/uL (156-360); RBC DIS.WIDTH-CV 16.7 % (11.8-14.6); RBC DIS.WIDTH-SD 48.1 % (39-53); RED BLOOD COUNT 4.92 M/uL (3.80-5.20); WHITE BLOOD COUNT 12.5 K/uL (4.1-10.2)
[2018-04-19 07:34] VITALS: BP 136/90
[2018-04-19 11:33] VITALS: BP 136/77
[2018-04-19 15:56] VITALS: BP 138/86
[2018-04-19 20:22] VITALS: BP 165/72
[2018-04-20 02:46] VITALS: BP 118/64
[2018-04-20 07:51] VITALS: BP 122/80
[2018-04-20 10:44] LABS: HEMOGLOBIN A1c (GLYCOHEMOGLOB) 8.3 % (Below 5.7)
[2018-04-20 11:45] VITALS: BP 159/91
[2018-04-20 16:07] VITALS: BP 135/64
[2018-04-20 19:00] VITALS: BP 128/82
[2018-04-21] VITALS (7 sets, daily range): BP systolic 108–135; BP diastolic 58–77
[2018-04-21 04:36] LABS: HEMATOCRIT 37.2 % (36.0-46.0); HEMOGLOBIN 11.7 G/DL (11.9-15.5); MCH 25.1 PG (29.0-34.0); MCHC 31.5 G/DL (30.0-36.0); MCV 79.7 FL (83-99); PLATELET COUNT 449 K/uL (156-360); RBC DIS.WIDTH-CV 16.7 % (11.8-14.6); RBC DIS.WIDTH-SD 47.4 % (39-53); RED BLOOD COUNT 4.67 M/uL (3.80-5.20); WHITE BLOOD COUNT 11.5 K/uL (4.1-10.2)
[2018-04-21 04:48] LABS: CHLORIDE 103 mEq/L (99-109); SODIUM 136 mEq/L (136-147)
[2018-04-21 04:50] LABS: GLUCOSE 213 mg/dL (70-99)
[2018-04-21 04:54] LABS: CREATININE 1.3 mg/dL (0.6-1.3); GFR ESTIMATE (CALCULATED) 48 mL/min/
[2018-04-21 04:55] LABS: UREA NITROGEN (BUN) 13 mg/dL (9-23)
[2018-04-21 05:01] LABS: POTASSIUM 4.5 mEq/L (3.7-5.4)
[2018-04-22 03:53] VITALS: BP 114/72
[2018-04-22 07:20] VITALS: BP 121/84
[2018-04-22 11:28] VITALS: BP 117/68
[2018-04-22 15:36] VITALS: BP 127/58
[2018-04-22 23:56] VITALS: BP 128/79
[2018-04-23 07:31] VITALS: BP 136/77
[2018-04-23 11:10] VITALS: BP 161/83
[2018-04-23 16:15] VITALS: BP 138/87
[2018-04-24 00:01] VITALS: BP 159/88
[2018-04-24 04:47] VITALS: BP 129/74
[2018-04-24 05:48] LABS: HEMATOCRIT 33.5 % (36.0-46.0); HEMOGLOBIN 10.4 G/DL (11.9-15.5); MCH 25.3 PG (29.0-34.0); MCV 81.5 FL (83-99); PLATELET COUNT 365 K/uL (156-360); RBC DIS.WIDTH-CV 17.1 % (11.8-14.6); RBC DIS.WIDTH-SD 50.4 % (39-53); RED BLOOD COUNT 4.11 M/uL (3.80-5.20); WHITE BLOOD COUNT 11.4 K/uL (4.1-10.2)
[2018-04-24 06:15] LABS: CHLORIDE 102 MEQ/L (99-109); CREATININE 1.2 MG/DL (0.6-1.3); GFR ESTIMATE (CALCULATED) 52 mL/min/; GLUCOSE 123 mg/dL (70-99); MAGNESIUM 2.1 mg/dl (1.3-2.7); SODIUM 134 MEQ/L (136-147); UREA NITROGEN (BUN) 18 mg/dL (9-23)
[2018-04-24 08:12] VITALS: BP 124/64
[2018-04-24 11:38] VITALS: BP 124/60
[2018-04-24 15:57] VITALS: BP 135/81
[2018-04-24 20:00] VITALS: BP 118/63
[2018-04-25 03:36] VITALS: BP 148/85
[2018-04-25 07:38] VITALS: BP 98/55
[2018-04-25 10:25] LABS: HEMATOCRIT 35.6 % (36.0-46.0); HEMOGLOBIN 11.1 G/DL (11.9-15.5); MCH 25.1 PG (29.0-34.0); MCHC 31.2 G/DL (30.0-36.0); MCV 80.4 FL (83-99); PLATELET COUNT 418 K/uL (156-360); RBC DIS.WIDTH-CV 16.8 % (11.8-14.6); RBC DIS.WIDTH-SD 48.6 % (39-53); RED BLOOD COUNT 4.43 M/uL (3.80-5.20); WHITE BLOOD COUNT 15.3 K/uL (4.1-10.2)
[2018-04-25 10:49] LABS: CHLORIDE 100 MEQ/L (99-109); CREATININE 1.2 MG/DL (0.6-1.3); GFR ESTIMATE (CALCULATED) 52 mL/min/; POTASSIUM 4.4 MEQ/L (3.7-5.4); SODIUM 133 MEQ/L (136-147); UREA NITROGEN (BUN) 16 mg/dL (9-23)
[2018-04-25 11:06] LABS: GLUCOSE 195 mg/dL (70-99)
[2018-04-25 12:05] VITALS: BP 123/63
[2018-04-25 19:10] VITALS: BP 151/77
[2018-04-26 00:26] VITALS: BP 134/73
[2018-04-26 08:44] VITALS: BP 107/59
[2018-04-26 16:03] VITALS: BP 129/63
[2018-04-26 19:35] VITALS: BP 129/60
[2018-04-26 23:32] VITALS: BP 126/58
[2018-04-27 07:36] VITALS: BP 142/67
[2018-04-27 09:07] LABS: HEMATOCRIT 36.1 % (36.0-46.0); MCH 24.9 PG (29.0-34.0); MCHC 30.5 G/DL (30.0-36.0); MCV 81.9 FL (83-99); PLATELET COUNT 351 K/uL (156-360); RBC DIS.WIDTH-CV 16.9 % (11.8-14.6); RBC DIS.WIDTH-SD 50.1 % (39-53); RED BLOOD COUNT 4.41 M/uL (3.80-5.20); WHITE BLOOD COUNT 9.4 K/uL (4.1-10.2)
[2018-04-27 09:36] LABS: CHLORIDE 105 MEQ/L (99-109); CREATININE 1.3 MG/DL (0.6-1.3); GFR ESTIMATE (CALCULATED) 48 mL/min/; GLUCOSE 143 mg/dL (70-99); POTASSIUM 4.9 MEQ/L (3.7-5.4); SODIUM 137 MEQ/L (136-147); UREA NITROGEN (BUN) 19 mg/dL (9-23)
[2018-04-27 11:43] VITALS: BP 115/54
[2018-04-27 15:47] VITALS: BP 116/57
[2018-04-27 19:54] VITALS: BP 122/63
[2018-04-28 00:18] VITALS: BP 113/58
[2018-04-28 04:23] VITALS: BP 144/78
[2018-04-28 07:53] VITALS: BP 131/72
[2018-04-28 08:52] LABS: HEMATOCRIT 36.7 % (36.0-46.0); HEMOGLOBIN 11.1 G/DL (11.9-15.5); MCH 24.6 PG (29.0-34.0); MCHC 30.2 G/DL (30.0-36.0); MCV 81.4 FL (83-99); PLATELET COUNT 426 K/uL (156-360); RBC DIS.WIDTH-CV 16.8 % (11.8-14.6); RBC DIS.WIDTH-SD 49.7 % (39-53); RED BLOOD COUNT 4.51 M/uL (3.80-5.20); WHITE BLOOD COUNT 11.7 K/uL (4.1-10.2)
[2018-04-28 09:15] LABS: CHLORIDE 105 MEQ/L (99-109); CREATININE 1.2 MG/DL (0.6-1.3); GFR ESTIMATE (CALCULATED) 52 mL/min/; GLUCOSE 123 mg/dL (70-99); POTASSIUM 4.7 MEQ/L (3.7-5.4); SODIUM 137 MEQ/L (136-147); UREA NITROGEN (BUN) 17 mg/dL (9-23)
[2018-04-28 11:23] VITALS: BP 122/70
[2018-04-28 15:44] VITALS: BP 132/64
[2018-04-29] VITALS: BP 136/90
[2018-04-29 05:11] LABS: BASOPHIL (%) 0.5 % (0-1); BASOPHIL COUNT 0.1 K/uL (0-0.1); EOSINOPHIL (%) 1.9 % (0-5); EOSINOPHIL COUNT 0.2 K/uL (0-0.3); HEMATOCRIT 35.5 % (36.0-46.0); HEMOGLOBIN 10.7 G/DL (11.9-15.5); IMMATURE GRANULOCYTE (%) 0.6 % (0.0-0.7); LYMPHOCYTE (%) 20.8 % (15-42); LYMPHOCYTE COUNT 2.6 K/uL (1.0-2.8); MCH 24.8 PG (29.0-34.0); MCHC 30.1 G/DL (30.0-36.0); MCV 82.2 FL (83-99); MONOCYTE (%) 6.9 % (3-12); MONOCYTE COUNT 0.9 K/uL (0-0.8); NEUTROPHIL (%) 69.3 % (45-76); NEUTROPHIL COUNT 8.6 K/uL (1.8-6.4); PLATELET COUNT 436 K/uL (156-360); RBC DIS.WIDTH-CV 16.8 % (11.8-14.6); RBC DIS.WIDTH-SD 50.6 % (39-53); RED BLOOD COUNT 4.32 M/uL (3.80-5.20); WHITE BLOOD COUNT 12.4 K/uL (4.1-10.2)
[2018-04-29 06:08] LABS: CHLORIDE 104 MEQ/L (99-109); CREATININE 1.2 MG/DL (0.6-1.3); GFR ESTIMATE (CALCULATED) 52 mL/min/; POTASSIUM 3.8 MEQ/L (3.7-5.4); SODIUM 137 MEQ/L (136-147); UREA NITROGEN (BUN) 17 mg/dL (9-23)
[2018-04-29 06:12] LABS: GLUCOSE 186 mg/dL (70-99)
[2018-04-29 07:44] VITALS: BP 130/73
[2018-04-29] MEDS ORDERED: NAPROXEN500 MG PO (10:56)
[2018-04-29] MEDS ORDERED: POLYETHYLENE GL17 GM PO (10:59)
[2018-04-29] MEDS ORDERED: MORPHINE SULFAT15 M1 PO (11:00)
[2018-04-29] MEDS ORDERED: MORPHINE SULFAT15 MG PO (11:00)
[2018-04-29] MEDS ORDERED: SENNA-S LAXATI1 EACH PO (11:04)
[2018-04-29] MEDS ORDERED: PREDNISONE10 MG PO (11:15)
[2018-04-29 11:24] VITALS: BP 141/90
== END 2018-04-29 14:25 | disposition designated cancer center or children's hospital (05) | DRG 603 ==
LOC: EME 10:04 → EDOF 15:13 → ENRESERV 15:13 → 4SOUTH 17:03
PROVIDERS: Hospitalist; Internal Medicine; Physician Assistant; Physician Assistant Medical
DX: L03.115 Cellulitis of right lower limb (principal); L03.116 Cellulitis of left lower limb; L88 Pyoderma gangrenosum; B96.5 Pseudomonas (aeruginosa) (mallei) (pseudomallei) as the cause of diseases classified elsewhere; B95.5 Unspecified streptococcus as the cause of diseases classified elsewhere; E11.622 Type 2 diabetes mellitus with other skin ulcer; L97.909 Non-pressure chronic ulcer of unspecified part of unspecified lower leg with unspecified severity; E86.0 Dehydration; E87.6 Hypokalemia; I11.0 Hypertensive heart disease with heart failure; I50.9 Heart failure, unspecified; E66.01 Morbid (severe) obesity due to excess calories; Z68.43 Body mass index [BMI] 50.0-59.9, adult; F11.20 Opioid dependence, uncomplicated; I95.9 Hypotension, unspecified; E11.43 Type 2 diabetes mellitus with diabetic autonomic (poly)neuropathy; K31.84 Gastroparesis; B37.2 Candidiasis of skin and nail; F31.9 Bipolar disorder, unspecified; F41.8 Other specified anxiety disorders; F60.3 Borderline personality disorder; G43.909 Migraine, unspecified, not intractable, without status migrainosus; M62.838 Other muscle spasm; G89.29 Other chronic pain; M54.30 Sciatica, unspecified side; G40.909 Epilepsy, unspecified, not intractable, without status epilepticus; E78.5 Hyperlipidemia, unspecified; M79.7 Fibromyalgia; G47.33 Obstructive sleep apnea (adult) (pediatric); J45.909 Unspecified asthma, uncomplicated; K21.9 Gastro-esophageal reflux disease without esophagitis; L30.4 Erythema intertrigo; M06.9 Rheumatoid arthritis, unspecified; Z86.14 Personal history of Methicillin resistant Staphylococcus aureus infection; Z86.19 Personal history of other infectious and parasitic diseases
CPT/HCPCS: 71046; 80048; 82010; 82803; 82948; 83036; 83605; 83735; 84484; 85025; 85027; 87040; 93005; 94640; 94799; 99281; 99285; G0378; J0574; J0692; J1050; J1170; J1200; J1650; J1815; J1885; J2543; J3010; J7030; J7050; J7512

== ENCOUNTER 2018-05-08 20:03 | Inpatient (IN) | payer OTHER ==
[~2018-05-08] VITALS: Ht 165.1 cm; Wt 134.0 kg
[~2018-05-08 20:03] MED LIST changes: +ANTI-ITCH28 G1 TP; +CARBAMAZEPINE200 MG PO; +FEOSOL325 MG PO; +MORPHINE SULFAT15 M1 PO; +ONDANSETRON HCL4 MG PO; +SENNA-S LAXATI1 EACH PO; +SERTRALINE HCL100 MG PO; +SUBOXONE 12 MG1 EACH SL; +SUMATRIPTAN SU100 MG PO
[2018-05-08 21:05] LABS: HEMATOCRIT 34.7 % (36.0-46.0); MCH 25.1 PG (29.0-34.0); MCHC 31.7 G/DL (30.0-36.0); PLATELET COUNT 355 K/uL (156-360); RBC DIS.WIDTH-CV 16.2 % (11.8-14.6); RBC DIS.WIDTH-SD 46.8 % (39-53); RED BLOOD COUNT 4.39 M/uL (3.80-5.20); WHITE BLOOD COUNT 13.1 K/uL (4.1-10.2)
[2018-05-08 21:10] LABS: INTER. NORMALIZED RATIO 1.1
[2018-05-08] MEDS ORDERED: VALACYCLOVIR500 MG PO (21:14)
[2018-05-08] MEDS ORDERED: ALDACTONE50 MG PO (21:15)
[2018-05-08 21:17] LABS: ALBUMIN 3.3 g/dL (3.2-4.8); CHLORIDE 100 mEq/L (99-109); SODIUM 134 mEq/L (136-147)
[2018-05-08 21:19] LABS: GLUCOSE 182 mg/dL (70-99)
[2018-05-08 21:20] LABS: TOTAL PROTEIN 6.4 g/dL (6.4-8.3)
[2018-05-08 21:21] LABS: TOTAL BILIRUBIN 0.2 mg/dL (0.0-1.0)
[2018-05-08] MEDS ORDERED: SENNA-S TABLET1 EACH PO (21:21)
[2018-05-08] MEDS ORDERED: MIRALAX17 GM PO (21:21)
[2018-05-08] MEDS ORDERED: PREDNISONE10 MG PO (21:22)
[2018-05-08 21:23] LABS: ALKALINE PHOSPHATASE 103 IU/L (3-129); GFR ESTIMATE (CALCULATED) > 59 mL/min/
[2018-05-08 21:24] LABS: UREA NITROGEN (BUN) 14 mg/dL (9-23)
[2018-05-08 21:25] LABS: AST (GOT) 12 IU/L (2-34)
[2018-05-08 21:26] LABS: ALT (GPT) 13 IU/L (3-49)
[2018-05-08 21:27] LABS: LIPASE 25 U/L (1.0-51.0); TROP-I INTERPRETATION NEGATIVE; TROPONIN-I < 0.01 ng/mL (0.0-0.30)
[2018-05-08 23:57] LABS: APPEARANCE CLEAR ((CLEAR)); BILIRUBIN NEGATIVE; BLOOD SMALL; COLOR YELLOW ((YELLOW)); GLUCOSE (STRIP) NEGATIVE; KETONES NEGATIVE; LEUKOCYTES SMALL; NITRITE NEGATIVE; PROTEIN (STRIP) NEGATIVE; SPECIFIC GRAVITY 1.014 (1.000-1.030); UROBILINOGEN 0.2 MG/DL (0.2-1.0)
[2018-05-09] VITALS (7 sets, daily range): BP systolic 121–160; BP diastolic 62–90
[2018-05-09 00:26] LABS: BACTERIA NONE SEEN /HPF; EPITHELIAL CELLS RARE /HPF; MUCUS TRACE /LPF; RED BLOOD CELLS 15-20 /HPF (0-5); UCUL ADDED? YES
[2018-05-09 09:01] LABS: HEMATOCRIT 34.5 % (36.0-46.0); HEMOGLOBIN 10.6 G/DL (11.9-15.5); MCH 24.5 PG (29.0-34.0); MCHC 30.7 G/DL (30.0-36.0); MCV 79.9 FL (83-99); PLATELET COUNT 331 K/uL (156-360); RBC DIS.WIDTH-CV 16.2 % (11.8-14.6); RBC DIS.WIDTH-SD 47.2 % (39-53); RED BLOOD COUNT 4.32 M/uL (3.80-5.20); WHITE BLOOD COUNT 6.3 K/uL (4.1-10.2)
[2018-05-09 09:29] LABS: CHLORIDE 102 MEQ/L (99-109); POTASSIUM 3.4 MEQ/L (3.7-5.4); SODIUM 135 MEQ/L (136-147)
[2018-05-09 09:35] LABS: GFR ESTIMATE (CALCULATED) > 59 mL/min/; GLUCOSE 222 mg/dL (70-99); UREA NITROGEN (BUN) 14 mg/dL (9-23)
[2018-05-10 06:25] LABS: BASOPHIL (%) 0.6 % (0-1); BASOPHIL COUNT 0.1 K/uL (0-0.1); EOSINOPHIL (%) 3.4 % (0-5); EOSINOPHIL COUNT 0.3 K/uL (0-0.3); HEMOGLOBIN 11.2 G/DL (11.9-15.5); LYMPHOCYTE (%) 29.3 % (15-42); LYMPHOCYTE COUNT 2.4 K/uL (1.0-2.8); MCHC 30.3 G/DL (30.0-36.0); MCV 79.2 FL (83-99); MONOCYTE (%) 9.7 % (3-12); MONOCYTE COUNT 0.8 K/uL (0-0.8); NEUTROPHIL COUNT 4.5 K/uL (1.8-6.4); PLATELET COUNT 379 K/uL (156-360); RBC DIS.WIDTH-CV 15.9 % (11.8-14.6); RBC DIS.WIDTH-SD 45.9 % (39-53); RED BLOOD COUNT 4.67 M/uL (3.80-5.20)
[2018-05-10 07:18] LABS: CHLORIDE 101 MEQ/L (99-109); CREATININE 0.9 MG/DL (0.6-1.3); GFR ESTIMATE (CALCULATED) > 59 mL/min/; GLUCOSE 139 mg/dL (70-99); POTASSIUM 3.5 MEQ/L (3.7-5.4); SODIUM 138 MEQ/L (136-147); UREA NITROGEN (BUN) 13 mg/dL (9-23)
[2018-05-10 07:29] VITALS: BP 148/85
[2018-05-10 16:14] VITALS: BP 156/85
[2018-05-10 23:15] VITALS: BP 159/72
[2018-05-11 07:35] VITALS: BP 135/73
[2018-05-11] MEDS ORDERED: AUGMENTIN875 MG PO (11:11)
== END 2018-05-11 13:34 | disposition home or self-care (01) | DRG 872 ==
LOC: EXP 20:03 → EME 20:03 → 3EAST 23:52 → 5SOUTH 23:52 → EDOF 23:52 → ENRESERV 05-09 01:14 → 3EAST 05-09 01:14 → ENRESERV 05-10 21:34 → 5SOUTH 05-10 23:03
PROVIDERS: Hospitalist; Internal Medicine; Physician Assistant
DX: A41.9 Sepsis, unspecified organism (principal); L03.115 Cellulitis of right lower limb; L03.116 Cellulitis of left lower limb; L88 Pyoderma gangrenosum; E87.6 Hypokalemia; E11.43 Type 2 diabetes mellitus with diabetic autonomic (poly)neuropathy; K31.84 Gastroparesis; I10 Essential (primary) hypertension; E78.5 Hyperlipidemia, unspecified; F41.9 Anxiety disorder, unspecified; F32.9 Major depressive disorder, single episode, unspecified; G40.909 Epilepsy, unspecified, not intractable, without status epilepticus; K21.9 Gastro-esophageal reflux disease without esophagitis; M79.7 Fibromyalgia; M06.9 Rheumatoid arthritis, unspecified; G89.4 Chronic pain syndrome; J45.909 Unspecified asthma, uncomplicated; E66.01 Morbid (severe) obesity due to excess calories; Z68.42 Body mass index [BMI] 45.0-49.9, adult; Z79.52 Long term (current) use of systemic steroids; Z79.84 Long term (current) use of oral hypoglycemic drugs; Z86.14 Personal history of Methicillin resistant Staphylococcus aureus infection; Z88.1 Allergy status to other antibiotic agents
CPT/HCPCS: 71045; 76882; 80048; 80053; 81003; 82948; 83605; 83690; 84484; 85025; 85027; 85610; 85730; 87040; 87086; 94640; 94799; 99281; 99285; J1650; J1815; J2060; J2543; J3010; J7050; J7120; J7512; S0030